=== PATIENT | female | born 1960 | race Caucasian/White ===

== ENCOUNTER 2022-03-22 17:19 | Emergency (ER) | payer OTHER, SELFPAY ==
[2022-03-22 17:25] VITALS: BP 171/79; PULSE 95; RESP 18; TEMP 36.7; O2SAT 98; BMI 28.5
--- NOTE | 2022-03-22 17:27 | ECG_ITS ---
Test Reason : GERD Blood Pressure : / mmHG Vent. Rate : 081 BPM Atrial Rate : 081 BPM P-R Int : 144 ms QRS Dur : 088 ms QT Int : 388 ms P-R-T Axes : 027 006 031 degrees QTc Int : 450 ms Normal sinus rhythm Normal ECG When compared with ECG of 10-FEB-2014 18:05, No significant change was found Referred By: Pinky Dodson Electronically Signed By:Aiden Ahmadi
--- NOTE | 2022-03-22 17:28 | ED_ITS ---
HPI - General Adult General Chief complaint: Chest Pain Stated complaint: ?gerd attack Related Data Allergies Allergy/AdvReac Type Severity Reaction Status Date / Time No Known Allergies Allergy Unverified 12/16/19 14:37 [facility] Social History Social History Advance Directives: No Advance Directives Information Provided: No Physical Exam ED Vital Signs: BMI result Body Mass Index 28.5 Course Course Course Narrative: RME - 62 yo female with history of COPD, asthma, osteoporosis, GERD who presents to the ER for evaluation of a GERD attack that started last night. She states the pain started last night after eating [place] food but nothing spicy. Pain starts in the epigastric area, radiates around the lower ribs on both sides to the back and also radiates up into the chest and neck. She has been taking mylanta and nexium with no relief. Food today made it worse. She wanted to make sure it was GERD and nothing else. HTN 170s on arrival, otherwise appears well. Will get labs, EKG and troponin. Medical Decision Making Lab Data Result Diagrams: 03/22/22 18:19 03/22/22 18:19 Labs: Lab Results 03/22/22 03/22/22 03/22/22 Range/Units 18:19 18:19 18:19 WBC 8.9 (4.8-10.8) X10*3/uL RBC 4.42 (4.20-5.50) X10*6/uL Hgb 13.3 (12.0-16.0) g/dl Hct 40.2 (37.0-47.0) % MCV 91.0 (80.0-98.0) fL MCH 30.1 (27.0-33.0) pg MCHC 33.1 (31.0-35.0) g/dl RDW 12.5 (11.0-16.0) % Plt Count 171 (160-400) X10*3/uL MPV 13.5 H (9.4-12.3) fL Immature Gran % (Auto) 0.3 (0.0-0.4) % Neut % (Auto) 66.1 (45-73) % Lymph % (Auto) 24.4 (20-40) % [place] % (Auto) 6.4 (2-11) % Eos % (Auto) 2.2 (0-4) % Baso % (Auto) 0.6 (0-2) % Lymph # (Auto) 2.2 (1.2-4.9) X10*3/uL [place] # (Auto) 0.6 (0.1-1.2) X10*3/uL Eos # (Auto) 0.2 (0.0-0.4) X10*3/uL Baso # (Auto) 0.1 (0.0-0.2) X10*3/uL Abs Immat Gran (auto) 0.03 (0.00-0.03) X10*3/uL Absolute Neuts (auto) 5.9 (2.0-8.3) x10*3/uL Absolute Nucleated RBC 0.000 (0.0-0.012) X10*3/uL Nucleated RBC % (auto) 0.0 (0.0-0.2) /100WBC Smear Tech's Comments VERIFIED Sodium 144 (135-145) mmol/L Potassium 4.2 (3.3-5.1) mmol/L Chloride 110 H (96-108) mmol/L Carbon Dioxide 27 (22-29) mmol/L Anion Gap 11 L (12-20) BUN 10 (9-16) mg/dL Creatinine 0.77 (0.5-1.4) mg/dL Estim Creat Clear Calc 68.8 Estimated GFR > 60 Random Glucose 107 (60-115) mg/dL Calcium 9.0 (8.4-10.2) mg/dL Magnesium 2.6 (1.6-2.6) mg/dL Total Bilirubin 0.5 (0.0-1.0) mg/dL Direct Bilirubin 0.2 (0.0-0.5) mg/dL AST 15 (5-31) U/L ALT 21 (0-31) U/L Alkaline Phosphatase 82 (39-117) U/L Troponin I High Sens < 3.5 (<3.5-17.0) ng/L Total Protein 6.2 L (6.5-8.0) g/dL Albumin 4.0 (3.5-5.0) g/dL Lipase 19 (8-78) U/L Discharge Plan Discharge Clinical Impression: Acute epigastric pain Patient Disposition: Elopement Interventions: ED Discharge Assessment Last Done: 03/22/22 20:37 Discharge Date/Time: 03/22/22 20:39
[2022-03-22 18:31] LABS: Lymphocytes Absolute Auto 2.2 X10*3/uL (1.2-4.9); Monocytes Percent Auto 6.4 % (2-11); SCAN SMEAR FLAG 1
[2022-03-22 18:32] LABS: Basophils Absolute Auto 0.1 X10*3/uL (0.0-0.2); Basophils Percent Auto 0.6 % (0-2); Eosinophils Absolute Auto 0.2 X10*3/uL (0.0-0.4); Eosinophils Percent Auto 2.2 % (0-4); Hematocrit 40.2 % (37.0-47.0); Hemoglobin 13.3 g/dl (12.0-16.0); Imm Gran Abs Auto 0.03 X10*3/uL (0.00-0.03); Imm Gran Pct Auto 0.3 % (0.0-0.4); Lymphocytes Percent Auto 24.4 % (20-40); MANUAL DIFF FLAG SCAN; Mean Corpuscular HGB Conc 33.1 g/dl (31.0-35.0); Mean Corpuscular Hemoglobin 30.1 pg (27.0-33.0); Mean Platelet Volume 13.5 fL (9.4-12.3); Monocytes Absolute Auto 0.6 X10*3/uL (0.1-1.2); Neutrophils Absolute Auto 5.9 x10*3/uL (2.0-8.3); Neutrophils Percent Auto 66.1 % (45-73); Platelet Count 171 X10*3/uL (160-400); Red Blood Count 4.42 X10*6/uL (4.20-5.50); Red Cell Distribution Width 12.5 % (11.0-16.0); White Blood Count 8.9 X10*3/uL (4.8-10.8)
[2022-03-22 18:41] LABS: PLT ABN DIST 1
[2022-03-22 18:53] LABS: Alanine Aminotransferase 21 U/L (0-31); Alkaline Phosphatase 82 U/L (39-117); Anion Gap 11 (12-20); Aspartate Amino Transferase 15 U/L (5-31); Bilirubin Direct 0.2 mg/dL (0.0-0.5); Bilirubin Total 0.5 mg/dL (0.0-1.0); Blood Urea Nitrogen 10 mg/dL (9-16); Carbon Dioxide 27 mmol/L (22-29); Chloride 110 mmol/L (96-108); Creatinine Clr Calc Pharmacy 68.8; Estimated Glomerular Filt Rate > 60; Glucose Random 107 mg/dL (60-115); Magnesium 2.6 mg/dL (1.6-2.6); Potassium 4.2 mmol/L (3.3-5.1); Sodium 144 mmol/L (135-145); Total Protein 6.2 g/dL (6.5-8.0)
[2022-03-22 18:56] LABS: Lipase 19 U/L (8-78)
[2022-03-22 18:58] LABS: SLIDE REVIEW VERIFIED
[2022-03-22 19:01] LABS: Troponin-I High Sensitivity < 3.5 ng/L (<3.5-17.0)
== END 2022-03-22 20:39 | disposition left against medical advice (07) ==
PROVIDERS: Physician Assistant; Emergency Provider Emergency Medicine
DX: K21.9 Gastro-esophageal reflux disease without esophagitis (principal); R10.13 Epigastric pain; R07.89 Other chest pain; Z79.899 Other long term (current) drug therapy
CPT/HCPCS: 36415; 80048; 80076; 83690; 83735; 84484; 85025; 93005; 99283; 99284

== ENCOUNTER 2023-06-11 08:50 | Outpatient (REF) | payer OTHER, SELFPAY ==
[2023-06-11 09:13] LABS: MANUAL DIFF FLAG NO
[2023-06-11 09:35] LABS: Basophils Absolute Auto 0.1 X10*3/uL (0.0-0.2); Basophils Percent Auto 0.8 % (0-2); Eosinophils Absolute Auto 0.3 X10*3/uL (0.0-0.4); Eosinophils Percent Auto 3.3 % (0-4); Hematocrit 41.9 % (37.0-47.0); Hemoglobin 13.4 g/dl (12.0-16.0); Imm Gran Abs Auto 0.03 X10*3/uL (0.00-0.03); Imm Gran Pct Auto 0.4 % (0.0-0.4); Lymphocytes Absolute Auto 1.8 X10*3/uL (1.2-4.9); Lymphocytes Percent Auto 22.5 % (20-40); Mean Corpuscular Hemoglobin 29.3 pg (27.0-33.0); Mean Corpuscular Volume 91.5 fL (80.0-98.0); Monocytes Absolute Auto 0.6 X10*3/uL (0.1-1.2); Neutrophils Absolute Auto 5.1 x10*3/uL (2.0-8.3); Platelet Count 187 X10*3/uL (160-400); Red Blood Count 4.58 X10*6/uL (4.20-5.50); Red Cell Distribution Width 13.2 % (11.0-16.0); White Blood Count 7.8 X10*3/uL (4.8-10.8)
[2023-06-11 09:59] LABS: C Reactive Protein 0.14 mg/dL (< or = 0.50)
[2023-06-11 10:15] LABS: Erythrocyte Sedimentation Rate 12 MM/HR (0-20)
== END 2023-06-11 08:51 | disposition home or self-care (01) ==
LOC: HO.LAB 08:50
PROVIDERS: PCP Internal Medicine; Visit Provider Registered Nurse
DX: G43.909 Migraine, unspecified, not intractable, without status migrainosus (principal)
CPT/HCPCS: 36415; 85025; 85652; 86140

== ENCOUNTER 2024-11-24 08:07 | Outpatient (AMB) | payer OTHER, SELFPAY ==
--- OUTSIDE RECORDS SUMMARY | 2024-11-24 08:17 | XMS_ITS | Encounter Summary ---
Author Organization [facility] Address [address] [place] [address] Care Team Providers Care Sap Technical Developer Name Role Phone Omar Peralta Primary Care Provider [phone] Encounter Details Date Type Department Care Team Description 12/05/2022 Hospital Medical Records [address] [place] [address] Steffi Marcum MD [address] [place] [address] Social History Tobacco Use Types Packs/Day Years Used Date Smoking Tobacco: Former Cigarettes 2 20 1 - 08/06/1997 Passive Smoke Exposure: Past Smokeless Tobacco: Never Alcohol Use Standard Drinks/Week Comments No 0 (1 standard drink = 0.6 oz pur e alcohol) Alcohol Habits Answer Date Recorded How often do you have a drink containing alcohol ? Never 05/09/2020 How many drinks containing a lcohol do you have on a typical day when you are drinking? Not asked How often do you have six or more drinks on one occasion? Not asked Sex Assigned at Date Recorded Female 10/15/2022 8:50 AM E DT Job Start Date Occupation Industry Not on file Not on file Not on file COVID-19 Exposure Response Date Recorded In the last 10 days, have yo u been in contact with someone who was confirmed or suspected to have Coronavirus/COVID-19? No / Unsure 12/06/2022 7:52 AM EDT documented as of this encounter Plan of Treatment Not on file documented as of this encounter Visit Diagnoses Not on filedocumented in this encounter Care Teams Sap Technical Developer Relationship Specialty Start Date End Date Omar Peralta [address] [place] [address] PCP - General Internal Medicine 11/02/21 documented as of this encounter
--- OUTSIDE RECORDS SUMMARY | 2024-11-24 08:17 | XMS_ITS | Encounter Summary ---
Author Organization [facility] Address [address] [place] [address] Care Team Providers Care Instrument Repair Supervisor Name Role Phone Omar Peralta Primary Care Provider [phone] Encounter Details Date Type Department Care Team Description 12/03/2022 Pt. Non Urgent Medical Question Adult Medicine [address] [address] Omar Peralta [address] [place] [address] [phone] Mixed hyperlipidemia (Primary Dx); Prediabetes Social History Tobacco Use Types Packs/Day Years [...] AM EDT documented as of this encounter Miscellaneous Notes * Telephone Encounter - Ira Griggs L.P.N. - 12/03/2022 2:29 PM EDTFrom: Yolande Ayala To: Mauricio Peralta Sent: 12/03/2022 2:07 PM EDT Subject: Appt Good afternoon , I have an up coming appointment on 12/13/22 and I was wondering if there is any bloodwork that needs to be done prior to. Thank you, Irene documented in this encounter Plan of Treatment Not on file documented as of this encounter Results * (ABNORMAL) CHG LIPID PANEL (12/06/2022 8:38 AM EDT) Cholesterol 198 0 - 200 mg/dL 12/06/2022 1:31 PM EDT [facility] TRIGLYCERIDES 180(H) 0 - 150 mg/dL 12/06/2022 1:33 PM EDT [facility] HDL CHOLESTEROL 49 >40 mg/dL 1:33 PM EDT [facility] LDL CALCULATED 113(H) 0 - 100 mg/dL 12/06/2022 1:33 PM EDT [facility] TC-HDLC RATIO 4.0 0 - 4.4 mg/dL 12/06/2022 1:33 PM EDT [facility] 12/06/2022 8:38 AM EDT 12/06/2022 8:38 AM EDT Narrative [facility] - 12/06/2022 1:33 PM EDT Release to patient->Immediate Omar Peralta LAB [facility] * HEMOGLOBIN A1C (12/06/2022 8:38 AM EDT) GLYCATED HEMOGLOBIN A1C 6.0 <6.5 % 12/06/2022 7:23 PM EDT [facility] ESTIMATED AVERAGE GLUCOSE 126 mg/dL 12/06/2022 7:23 PM EDT [facility] 12/06/2022 8:38 AM EDT 12/06/2022 8:38 AM EDT Narrative [facility] - 12/06/2022 7:23 PM EDT Release to patient->Immediate Omar Peralta LAB [facility] documented in this encounter Visit Diagnoses Diagnosis Mixed hyperlipidemia- Primary Prediabetes Other abnormal glucose Right leg pain Pain in limb Right leg swelling Encounter for assessment for deep vein thrombosis (DVT) Mixed hyperlipidemia Prediabetes Other abnormal glucose documented in this encounter Care Teams Instrument Repair Supervisor Relationship Specialty Start Date End Date Omar Peralta [address] [place] [address] PCP - General Internal Medicine 11/02/21 documented as of this encounter
--- OUTSIDE RECORDS SUMMARY | 2024-11-24 08:18 | XMS_ITS | Encounter Summary ---
Author Organization [facility] Address [address] [place] [address] Care Team Providers Care Administrator Pesticide Name Role Phone Omar Peralta Primary Care Provider [phone] Encounter Details Date Type Department Care Team Description 12/14/2023 Telephone Adult Medicine [address] [address] Bessie Alcantar PA-C [address] [place] [address] Social History Tobacco Use Types Packs/Day Years [...] file Not on file Not on file documented as of this encounter Miscellaneous Notes * Telephone Encounter - Bessie Alcantar PA-C - 12/14/2023 9:51 PM EDT Please get me [facility] mammogram report. documented in this encounter Plan of Treatment Not on file documented as of this encounter Visit Diagnoses Not on filedocumented in this encounter Care Teams Administrator Pesticide Relationship Specialty Start Date End Date Omar Peralta [address] [place] [address] PCP - General Internal Medicine 11/02/21 documented as of this encounter
--- OUTSIDE RECORDS SUMMARY | 2024-11-24 08:18 | XMS_ITS | Clinical Summary ---
Author Organization [facility] Address [address] [place] [address] Care Team Providers Care Environmental Attorney Name Role Phone Omar Peralta Primary Care Provider Allergies No known active allergies Medications Medication Sig Dispensed Refills Start Date End Date Status sumatriptan (IMITREX) 100 MG tablet Take 1 Tab by mouth daily as needed. May repeat dose once after 2 hours, if needed. 0 Active [place]-3 Fatty Acids (FISH OIL) 1000 MG Cap Take 1 Cap by mouth daily. 30 Cap 0 01/18/2019 Active Magnesium 500 MG TabIndications:Chr onic obstructive pulmonary disease, unspecified COPD type (HCC) Take by mouth. 0 Active Calcium-Vitamin D-Vitamin K 650-12.5-40 MG-MCG-MCG Chew Tab Take by mouth 2 times daily. 0 Active ALBUTEROL SULFATE 108 (90 Base) MCG/ACT Aero Soln Inhale 2 Puffs into the lungs every 4 hours as needed for Wheezing for up to 30 days. 1 g 2 09/18/2022 Active Alum & Mag Hydroxide-Simeth 200-200-20 MG/5ML Suspension Take 15 mL by mouth 3 times daily as needed (epigastric dyspepsia). 1680 mL 11 11/26/2022 Active Erenumab-aooe 140 MG/ML Solution Auto-injector Inject into the skin every 30 days. 0 Active triamcinolone acetonide (Kenalog) 40 MG/ML injection Inject 1 mL into the articular space once for 1 dose. 1 mL 0 04/24/2023 Active esomeprazole (NEXIUM) 40 MG capsule Take 1 Capsule by mouth every morning (before breakfast). Take in a.m. on empty stomach, wait 30 minutes and then eat to activate medication. 90 Capsule 3 06/06/2023 Active Ajovy 225 MG/1.5ML Solution Prefilled Syringe INJECT 1.5 ML SUBCUTANEOUS MONTHLY 30 DAY(S) 0 08/27/2023 Active ondansetron (ZOFRAN) 4 MG tablet TAKE 1 TABLET BY MOUTH EVERY DAY FOR 30 DAYS 0 08/27/2023 Active ibuprofen (ADVIL,MOTRIN) 600 MG tablet Take 1 Tablet by mouth every 8 hours as needed for Pain. 60 Tablet 1 09/19/2023 Active acetaminophen (Tylenol 8 Hour) 650 MG CR tablet Take 1 Tablet by mouth every 8 hours as needed for Pain. 60 Tablet 0 09/19/2023 Active Fluticasone Furoate-Vilanterol 100-25 MCG/ACT AEROSOL POWDER,BREATH ACTIVATED INHALE 1 PUFF INTO THE LUNGS DAILY FOR 30 DAYS. 60 Each 11 10/06/2023 Active Active Problems Problem Noted Date Migraine without status migrainosus, not intractable 06/06/2023 Venous insufficiency (chronic) (peripher al) 07/30/2022 Umbilical hernia without obstruction and without gangrene 06/21/2022 Asthma-COPD overlap syndrome 09/29/2018 History of DVT (deep vein thrombosis) Atelectasis 09/29/2018 Abnormality of lung on CXR 09/29/2018 Prediabetes 04/13/2018 Overview: Nonfasting glucose 160, A1c 6.2 (04/04/2018). Prior glucoses were 110-140 Osteoporosis 02/05/2017 Former smoker 1.5ppd age 16-37, >30 pack yrs 09/28/2016 Lateral epicondylitis of right elbow Incomplete RBBB (normal EKG 09/28/16) 12/30 Overview: EKG 01/02/15 and 2013 Stress incontinence 08/06/2010 Neck pain 06/05/2009 Lower back pain 05/10/2009 Thoracic back pain 05/10/2009 GERD (gastroesophageal reflux disease) 0 08/29/2008 Abdominal pain Resolved Problems Problem Noted Date Resolved Date Need for prophylactic vaccin ation against Streptococcus pneumoniae (pneumococcus) 09/29/2018 12/09/2018 Deep venous thrombosis 12/15/2017 1 Osteopenia 12/14/2012 02/05/2017 Overview: 11/2012 lumbar T -2.1, normal hip T score Myofascial pain 06/29/2009 08/06/2010 Facet syndrome 05/10/2009 08/06/2010 Immunizations Name Administration Dates Next Due COVID-19 (Moderna) 01/26/2021,05/16/2020, 021 Covid-19 Bivalent (Pfizer) 03/08/2022 Influenza (> 6 Months) 12/12/2023,2019,01/18/2019,2016,01/22/2015,2014,01/24/2013,1 ,06/13/2011 Pneumococcal Conjugate PCV-13 09/29/2018 Shingrix (Recombinant zoster vaccine) 06/21/2020 ,03/20/2020 TD (STATE SUPPLIED FOR ADULT S AND CHILDREN) 09/08/2018 Tdap 10/23/2007 Family History Medical History Relation Name Comments Cataract Father Glaucoma Father Cataract Mother thyroid cancer Sister 4 Blindness Negative Hx CA Breast Negative Hx CA Colon Negative Hx CA Ovarian Negative Hx Macular Degeneration Negative Hx Strabismus Negative Hx Relation Name Status Comments Brother 1 Alive Brother 2 Alive Daughter Alive Father h/o TB, COPD Mother Alive CAD, PVD, HTN, Hypercholesterolemia Sister 1 Alive Thyroid Cancer Sister 2 Alive Depression Sister 3 Alive Sister 4 Alive Son 1 Alive Son 2 Alive Social History Tobacco Use Types Packs/Day Years Used Date Smoking Tobacco: Former Cigarettes 2 20 1 - 08/06/1997 Passive Smoke Exposure: Past Smokeless Tobacco: Never Tobacco Cessation:Counseling Given: Not Answered Alcohol Use Standard Drinks/Week Comments No 0 [...] file Not on file Not on file Last Filed Vital Signs Vital Sign Reading Time Taken Comments Blood Pressure 109/69 12/12/2023 9:26 AM EDT Pulse 70 12/12/2023 9:26 AM EDT Temperature 36.8 C (98.3 F) 12/12/2023 9:26 AM EDT Respiratory Rate 16 12/12/2023 9:26 AM EDT Oxygen Saturation 97% 09/05/2023 1:52 PM EDT Inhaled Oxygen Concentration - - Weight 68.9 kg (152 lb) 12/12/2023 9:26 AM EDT Height 154.9 cm (5' 1 ) 12/12/2023 9:26 AM EDT Body Mass Index 28.72 12/12/2023 9:26 AM EDT Plan of Treatment Health Maintenance Due Date Last Done Comments CERVICAL CANCER SCREENING 12/10/20202015, 06/06/2010 (External Completion), 08/30/2007 (External Completion) BASELINE HEALTH EXAM 40-64 05/09/202205/09, 09/12/2018, 09/08/2018, Additional history exists MAMMOGRAM 06/01/2023 05/31/2022, 05/02, 05/05/2020 (External Completion), Additional history exists BONE DENSITY SCREENING 07/06/2023 , 06/01/2021, 04/07/2020, Additional history exists Covid-19 Vaccine ( season) 2023 03/08/2022, 01/26/2021, 05/16/2020, Additional history exists COLON CANCER SCREENING 12/09/2023 12/08/2013 BMI CHECK/ADVISE 03/31/2024 12/12/2023, 02/2024, 09/19/2023, Additional history exists INFLUENZA (#1) 2024 12/12/2023, 03/2019 (External Completion of Vaccination per patient), 12/11/2019, Additional history exists PNEUMOCOCCAL VACCINE FOR HIGH RISK PATIENTS (#2) 2027 12/11/2019, 09/29/2018 DTAP/TDAP/TD (3 - Td or Tdap) 09/08/2028 09/08/2018, 10/23/2007 CHOLESTEROL SCREENING 09/18/2028 09/19/2023 , 06/02/2023, 12/06/2022, Additional history exists HEPATITIS C SCREENING Addressed 12/14/2015 (Excepti on) Overridden with the intention of not completing the topic SHINGLES VACCINE Completed 06/21/2020, 03/20/2020 Care Teams Environmental Attorney Relationship Specialty Start Date End Date [place] [address] PCP - General Internal Medicine 11/02/21
--- OUTSIDE RECORDS SUMMARY | 2024-11-24 08:18 | XMS_ITS | Encounter Summary ---
Author Organization [facility] Address [address] [place] [address] Care Team Providers Care Auto Salvage Worker Name Role Phone Omar Peralta Primary Care Provider [phone] Reason for Visit * Reason Onset Date Comments Faxed Order 01/31/2023 MRI Encounter Details Date Type Department Care Team Description 01/31/2023 Telephone [facility] Medical [facility] [address] [facility] [address] [place] [address] Tania Ryan PA-C [address] [facility] [address] [place] [address] Faxed Order (MRI) Social History Tobacco Use Types Packs/Day Years [...] suspected to have Coronavirus/COVID-19? No / Unsure 01/01/2023 8:38 AM EDT documented as of this encounter Miscellaneous Notes * Telephone Encounter - Gissell Mccarthy - 02/10/2023 8:16 AM EST MRI scheduled for 02/10/23. Patient is aware * Telephone Encounter - Gissell Mccarthy - 01/31/2023 12:50 PM EDT Faxed over order for MRI. Waiting for appointment date and time documented in this encounter Plan of Treatment Not on file documented as of this encounter Visit Diagnoses Not on filedocumented in this encounter Care Teams Auto Salvage Worker Relationship Specialty Start Date End Date Omar Peralta [address] [place] [id number] PCP - General Internal Medicine 11/02/21 documented as of this encounter
--- OUTSIDE RECORDS SUMMARY | 2024-11-24 08:18 | XMS_ITS | Encounter Summary ---
Author Organization [facility] Address [address] [place] [address] Care Team Providers Care Actuarial Technician Name Role Phone Omar Peralta Primary Care Provider Encounter Details Date Type Department Care Team Description 11/27/2022 Pt. Non Urgent Medic al Question Gastroenterology - [address] [place] [phone] Praful Bowling PA-C Social History Tobacco Use Types Packs/Day Years [...] suspected to have Coronavirus/COVID-19? No / Unsure 11/26/2022 7:46 AM EDT documented as of this encounter Plan of Treatment Not on file documented as of this encounter Visit Diagnoses Not on filedocumented in this encounter Care Teams Actuarial Technician Relationship Specialty Start Date End Date Omar Peralta [address] [place] [id number] PCP - General Internal Medicine 11/02/21 documented as of this encounter
--- OUTSIDE RECORDS SUMMARY | 2024-11-24 08:18 | XMS_ITS | Encounter Summary ---
Author Organization [facility] Address [address] [place] [address] Care Team Providers Care Domestic Violence Advocate Name Role Phone Omar Peralta Primary Care Provider [phone] Encounter Details Date Type Department Care Team Description 12/10/2022 Pt. Non Urgent Medical Question Adult Medicine [address] [address] Omar Peralta [address] [place] [address] [phone] Social History Tobacco Use Types Packs/Day Years [...] encounter Miscellaneous Notes * Telephone Encounter - Zuly Hines R.N. - 12/10/2022 9:51 AM EDTFrom: Yolande Ayala To: Mauricio Peralta Sent: 12/10/2022 9:48 AM EDT Subject: Upcoming appointment Good morning, I have an appointment on Friday12/13/22 with you . We just saw each other on 12/06/22. I had my bloodwork done on that day and you commented on them through my portal. Do I need to keep the appointment on 12/13 ? Thank you , Irene documented in this encounter Plan of Treatment Not on file documented as of this encounter Visit Diagnoses Not on filedocumented in this encounter Care Teams Domestic Violence Advocate Relationship Specialty Start Date End Date Omar Peralta [address] [place] [address] PCP - General Internal Medicine 11/02/21 documented as of this encounter
--- OUTSIDE RECORDS SUMMARY | 2024-11-24 08:18 | XMS_ITS | Encounter Summary ---
Author Organization [facility] Address [address] [place] [address] Care Team Providers Care Distributor Advertising Material Name Role Phone Omar Peralta Primary Care Provider [phone] Encounter Details Date Type Department Care Team Description 12/31/2022 Orders Only Orthopedics-[address] [address] Tremaine Giang PA-C Lateral epicondylitis of right elbow Social History Tobacco Use Types Packs/Day Years [...] on file documented as of this encounter Procedures Procedure Name Priority Date/Time Associated Diagnosis Comments EMG INTERNAL/EXTERNAL Routine 12/30/2022 Lateral epicondylitis of right elbow documented in this encounter Results * EMG INTERNAL/EXTERNAL (12/30/2022) 12/30/2022 Tremaine Giang PA-C PHYSIATRY documented in this encounter Visit Diagnoses Diagnosis Lateral epicondylitis of right elbow Lateral epicondylitis of elbow documented in this encounter Care Teams Distributor Advertising Material Relationship Specialty Start Date End Date Omar Peralta [address] [place] [id number] PCP - General Internal Medicine 11/02/21 documented as of this encounter
--- OUTSIDE RECORDS SUMMARY | 2024-11-24 08:18 | XMS_ITS | Patient Health Record ---
Author Organization [facility] Address [address] [place] [phone] Care Team Providers Care Legal Compliance Officer Name Role Phone Lenny Campbell Jr Reason For Referral No Information Plan Of Treatment No Information
--- OUTSIDE RECORDS SUMMARY | 2024-11-24 08:18 | XMS_ITS | Encounter Summary ---
Author Organization [facility] Address [address] [place] [address] Care Team Providers Care Pressure Controller Name Role Phone Omar Peralta Primary Care Provider [phone] Encounter Details Date Type Department Care Team Description 01/04/2023 Orders Only Adult Medicine [address] [address] Alan Umanzor, PABestC [address] [place] [id number] Pain in both lower legs; Venous insufficiency Social History Tobacco Use Types Packs/Day Years [...] Procedure Name Priority Date/Time Associated Diagnosis Comments NM DUP-SCAN XTR VEINS COMPLETE BILATERAL STUDY Routine 07/25/2022 Pain in both lower legs Venous insufficiency documented in this encounter Results * NM DUP-SCAN XTR VEINS COMPLETE BILATERAL STUDY (07/25/2022) 07/25/2022 Alan Umanzor PA-C ULTRASOUND PVCA documented in this encounter Visit Diagnoses Diagnosis Pain in both lower legs Venous insufficiency Unspecified venous (peripheral) insufficiency documented in this encounter Care Teams Pressure Controller Relationship Specialty Start Date End Date Omar Peralta [address] [place] [id number] PCP - General Internal Medicine 11/02/21 documented as of this encounter
--- OUTSIDE RECORDS SUMMARY | 2024-11-24 08:18 | XMS_ITS | Encounter Summary ---
Author Organization [facility] Address [address] [place] [address] Care Team Providers Care Service Worker Helper Name Role Phone Omar Peralta Primary Care Provider Encounter Details Date Type Department Care Team Description 11/05/2023 Orders Only Radiology - [address] [address] Radiology, Authorizing Social History Tobacco Use Types Packs/Day Years [...] on file documented as of this encounter Plan of Treatment Not on file documented as of this encounter Visit Diagnoses Not on filedocumented in this encounter Care Teams Service Worker Helper Relationship Specialty Start Date End Date Omar Peralta [address] [place] [address] PCP - General Internal Medicine 11/02/21 documented as of this encounter
--- OUTSIDE RECORDS SUMMARY | 2024-11-24 08:19 | XMS_ITS | Encounter Summary ---
Author Organization [facility] Address [address] [place] [address] Care Team Providers Care Mechanical Engineering Intern Name Role Phone Omar Peralta Primary Care Provider [phone] Reason for Referral * EXTERNAL (Routine) - Authorized/Booked Specialty Diagnoses / Procedures Referred By Contac t Referred To Contact Neurology Procedures REFERRAL TO NEUROLOGY Omar Peralta [address] [place] [address] Florencio Darling MD Referral ID Status Reason Start Date Expiration Date V isits Requested Visits Authorized [id number] Authorized/B ooked 01/25/2022 05/25/2022 1 1 Encounter Details Date Type Department Care Team Description 01/25/2022 Telephone Adult Medicine [address] [address] Omar Peralta [address] [place] [address] [phone] Social History Tobacco Use Types Packs/Day Years Used Date Smoking Tobacco: Former Cigarettes 2 20 1 - 08/06/1997 Smokeless Tobacco: Never Alcohol Use Standard Drinks/Week [...] Recorded In the last 10 days, have michael u been in contact with someone who was confirmed or suspected to have Coronavirus/COVID-19? No / Unsure 01/25/2022 8:52 AM EDT documented as of this encounter Plan of Treatment Not on file documented as of this encounter Visit Diagnoses Not on filedocumented in this encounter Care Teams Mechanical Engineering Intern Relationship Specialty Start Date End Date Omar Peralta [address] [place] [phone] PCP - General Internal Medicine 11/02/21 documented as of this encounter
--- OUTSIDE RECORDS SUMMARY | 2024-11-24 08:19 | XMS_ITS | Encounter Summary ---
Author Organization [facility] Address [address] [place] [address] Care Team Providers Care Handkerchief Presser Name Role Phone Omar Peralta Primary Care Provider [phone] Encounter Details Date Type Department Care Team Description 11/23/2021 SCAN [facility] [address] [phone] Colin Maria DPM [address] [address] Social History Tobacco Use Types Packs/Day Years [...] suspected to have Coronavirus/COVID-19? No / Unsure 11/19/2021 8:24 AM EDT documented as of this encounter Plan of Treatment Not on file documented as of this encounter Visit Diagnoses Not on filedocumented in this encounter Care Teams Handkerchief Presser Relationship Specialty Start Date End Date Omar Peralta [address] [place] [address] PCP - General Internal Medicine 11/02/21 documented as of this encounter
--- OUTSIDE RECORDS SUMMARY | 2024-11-24 08:19 | XMS_ITS | Encounter Summary ---
Author Organization [facility] Address [address] [place] [address] Care Team Providers Care Manager Convention Name Role Phone Estela Barahona MD Primary Care Provider Unava ilable Rene Llamas DO Primary Care Provider Jen vailaEstela Burrell MD Primary Care Provider Unava ilable Rosemary Pcp Primary Care Provider UnavailEstela Gruber MD Primary Care Provider Unava ilable Omar Peralta Primary Care Provider [phone] Estela Barahona MD Primary Care Provider Unava ilable Omar Peralta Primary Care Provider [phone] Encounter Details Date Type Department Care Team Description 06/12/2017 Supervisor Telephone Clerks Report Medical Records [address] [place] [address] Alexandrea Burns MD Social History Tobacco Use Types Packs/Day Years Used Date Smoking Tobacco: Former Cigarettes 2 20 1 - 08/06/1997 Smokeless Tobacco: Former Alcohol Use Standard Drinks/Week Comments No 0 [...] on filedocumented in this encounter Care Teams Manager Convention Relationship Specialty Start Date End Date Estela Barahona MD PCP - General 09/17/10 08/20/20 Rene Llamas DO PCP - General Internal Medicine 08/21/20 1 Estela Barahona MD PCP - General Internal Medicine 02/06/21 02/07/21 [facility] PCP - General Internal Medicine 02/08/21 06/07/21 Estela Barahona MD PCP - General Internal Medicine 06/08/21 08/08/21 Omar Peralta [address] [place] [address] PCP - General Internal Medicine 08/09/21 08/21/21 Estela Barahona MD [address] [place] [address] PCP - General Warp Drawer 08/22/21 11/01/21 Omar Peralta [address] [place] [address] PCP - General Internal Medicine 11/02/21 documented as of this encounter
--- OUTSIDE RECORDS SUMMARY | 2024-11-24 08:19 | XMS_ITS | Encounter Summary ---
Author Organization [facility] Address [address] [place] [address] Care Team Providers Care Mortar Mixer Operator Name Role Phone Omar Peralta Primary Care Provider [phone] Reason for Visit * Reason Comments E-prescribe Rx Request Encounter Details Date Type Department Care Team Description 2022 Refill Gastroenterology - [address] [phone] Praful Bowling PA-C E-prescribe Rx Request Social History Tobacco Use Types Packs/Day Years [...] suspected to have Coronavirus/COVID-19? No / Unsure 12/17/2021 7:53 AM EDT documented as of this encounter Miscellaneous Notes * Telephone Encounter - Ju Cordova M.A. - 2022 9:53 AM EDT Last office visit : 11/02/2021 Next office visit not scheduled documented in this encounter Plan of Treatment Not on file documented as of this encounter Visit Diagnoses Not on filedocumented in this encounter Care Teams Mortar Mixer Operator Relationship Specialty Start Date End Date Omar Peralta [address] [place] [address] PCP - General Internal Medicine 11/02/21 documented as of this encounter
--- OUTSIDE RECORDS SUMMARY | 2024-11-24 08:19 | XMS_ITS | Encounter Summary ---
Author Organization [facility] Address [address] [place] [address] Care Team Providers Care Scrap Carrier Name Role Phone Estela Barahona MD Primary Care Provider Unava ilable Rene Llamas DO Primary Care Provider Jen vaEstela Brown MD Primary Care Provider Unava ilable Rosemary Pcp Primary Care Provider UnavailEstela Gruber MD Primary Care Provider Unava ilable Omar Peralta Primary Care Provider [phone] Estela Barahona MD Primary Care Provider Unava ilable Omar Peralta Primary Care Provider Encounter Details Date Type Department Care Team Description 06/27/2017 Supervisory Civil Engineer Report Medical Records [address] [place] [address] Karen Elizabeth Social History Tobacco Use Types Packs/Day Years [...] on filedocumented in this encounter Care Teams Scrap Carrier Relationship Specialty Start Date End Date Estela Barahona MD PCP - General 09/17/10 08/20/20 Rene Llamas DO PCP - General Internal Medicine 08/21/20 1 Estela Barahona MD PCP - General Internal Medicine 02/06/21 02/07/21 [facility] PCP - General Internal Medicine 02/08/21 06/07/21 Estela Barahona MD PCP - General Internal Medicine 06/08/21 08/08/21 Omar Peralta [address] [place] [address] PCP - General Internal Medicine 08/09/21 08/21/21 Estela Barahona MD [address] [place] [address] PCP - General Sandstone Splitter 08/22/21 11/01/21 Omar Peralta [address] [place] [address] PCP - General Internal Medicine 11/02/21 documented as of this encounter
--- OUTSIDE RECORDS SUMMARY | 2024-11-24 08:19 | XMS_ITS | Encounter Summary ---
Author Organization [facility] Address [address] [place] [address] Care Team Providers Care Semi Truck Driver Name Role Phone Estela Barahona MD Primary Care Provider Unava ilable Rene Llamas DO Primary Care Provider Jen vailaEstela Burrell MD Primary Care Provider Unava ilable Rosemary Pcp Primary Care Provider UnavailEstela Gruber MD Primary Care Provider Unava ilable Omar Peralta Primary Care Provider [phone] Estela Barahona MD Primary Care Provider Unava ilable Omar Peralta Primary Care Provider [phone] Encounter Details Date Type Department Care Team Description 06/03/2017 Rocket Assembly Operator Report Medical Records [address] [place] [address] Griffin Hernandez MD Social History Tobacco Use Types Packs/Day [...] on filedocumented in this encounter Care Teams Semi Truck Driver Relationship Specialty Start Date End Date Estela Barahona MD PCP - General 09/17/10 08/20/20 Rene Llamas DO PCP - General Internal Medicine 08/21/20 1 Estela Barahona MD PCP - General Internal Medicine 02/06/21 02/07/21 [facility] PCP - General Internal Medicine 02/08/21 06/07/21 Estela Barahona MD PCP - General Internal Medicine 06/08/21 08/08/21 Omar Peralta [address] [place] [address] PCP - General Internal Medicine 08/09/21 08/21/21 Estela Barahona MD [address] [place] [address] PCP - General Plywood Patcher 08/22/21 11/01/21 Omar Peralta [address] [place] [address] PCP - General Internal Medicine 11/02/21 documented as of this encounter
--- OUTSIDE RECORDS SUMMARY | 2024-11-24 08:19 | XMS_ITS | Encounter Summary ---
Author Organization [facility] Address [address] [place] [address] Care Team Providers Care Microfilm Operator Name Role Phone Estela Barahona MD Primary Care Provider Unava ilable Rene Llamas DO Primary Care Provider Jen vailaEstela Burrell MD Primary Care Provider Unava ilable Rosemary Pcp Primary Care Provider UnavailEstela Gruber MD Primary Care Provider Unava ilable Omar Peralta Primary Care Provider [phone] Estela Barahona MD Primary Care Provider Unava ilable Omar Peralta Primary Care Provider [phone] Encounter Details Date Type Department Care Team Description 09/29/2017 Employee Relations Representative Report Medical Records [address] [place] [address] Shoaib Layton MD Social History Tobacco Use Types Packs/Day [...] on filedocumented in this encounter Care Teams Microfilm Operator Relationship Specialty Start Date End Date Estela Barahona MD PCP - General 09/17/10 08/20/20 Rene Llamas DO PCP - General Internal Medicine 08/21/20 1 Estela Barahona MD PCP - General Internal Medicine 02/06/21 02/07/21 [facility] PCP - General Internal Medicine 02/08/21 06/07/21 Estela Barahona MD PCP - General Internal Medicine 06/08/21 08/08/21 Omar Peralta [address] [place] [address] PCP - General Internal Medicine 08/09/21 08/21/21 Estela Barahona MD [address] [place] [address] PCP - General Regional Forester 08/22/21 11/01/21 Omar Peralta [address] [place] [address] PCP - General Internal Medicine 11/02/21 documented as of this encounter
--- OUTSIDE RECORDS SUMMARY | 2024-11-24 08:20 | XMS_ITS | Encounter Summary ---
Author Organization [facility] Address [address] [place] [address] Care Team Providers Care Shake Cutter Name Role Phone Estela Barahona MD Primary Care Provider Unava ilable Rene Llamas DO Primary Care Provider Jen vailaEstela Burrell MD Primary Care Provider Unava ilable Rosemary Pcp Primary Care Provider UnavailEstela Gruber MD Primary Care Provider Unava ilable Omar Peralta Primary Care Provider [phone] Estela Barahona MD Primary Care Provider Unava ilable Omar Peralta Primary Care Provider [phone] Encounter Details Date Type Department Care Team Description 05/12/2018 Account Strategist Report Medical Records [address] [place] [address] Rehab., [place] Social History Tobacco Use Types Packs/Day Years [...] on filedocumented in this encounter Care Teams Shake Cutter Relationship Specialty Start Date End Date Estela Barahona MD PCP - General 09/17/10 08/20/20 Rene lLamas DO PCP - General Internal Medicine 08/21/20 1 Estela Barahona MD PCP - General Internal Medicine 02/06/21 02/07/21 [facility] PCP - General Internal Medicine 02/08/21 06/07/21 Estela Barahona MD PCP - General Internal Medicine 06/08/21 08/08/21 Omar Peralta [address] [place] [address] PCP - General Internal Medicine 08/09/21 08/21/21 Estela Barahona MD [address] [place] [address] PCP - General City Councilman 08/22/21 11/01/21 Omar Peralta [address] [place] [address] PCP - General Internal Medicine 11/02/21 documented as of this encounter
--- OUTSIDE RECORDS SUMMARY | 2024-11-24 08:20 | XMS_ITS | Encounter Summary ---
Author Organization [facility] Address [address] [place] [address] Care Team Providers Care Tax Evaluator Name Role Phone Omar Peralta Primary Care Provider [phone] Encounter Details Date Type Department Care Team Description 07/25/2022 Orders Only Gastroenterology - [address] [place] [phone] Praful Bowling PA-C Gastroesophageal reflux disease, unspecified whether esophagitis present; Globus sensation; Nausea; Change in bowel habits; Straining with stools Social History Tobacco Use Types Packs/Day Years [...] suspected to have Coronavirus/COVID-19? No / Unsure 07/05/2022 10:45 AM EDT documented as of this encounter Plan of Treatment Not on file documented as of this encounter Procedures Procedure Name Priority Date/Time Associated Diagnosis Comments CHG RADIOLOGIC EXAM UPR GI TRC DOUBLE CONTRAST STUDY Routine 07/25/2022 Gastroesophageal reflux disease, unspecified whether esophagitis present Globus sensation Nausea Change in bowel habits Straining with stools documented in this encounter Results * CHG RADIOLOGIC EXAM UPR GI TRC DOUBLE CONTRAST STUDY (07/25/2022) Praful Bowling PA-C OUTSIDE RADIOLOGY documented in this encounter Visit Diagnoses Diagnosis Gastroesophageal reflux disease, unspecified whether esophagitis present Globus sensation Gastrointestinal malfunction arising from mental factors Nausea Nausea alone Change in bowel habits Other symptoms involving digestive system Straining with stools Other symptoms involving digestive system documented in this encounter Care Teams Tax Evaluator Relationship Specialty Start Date End Date Omar Peralta [address] [place] [address] PCP - General Internal Medicine 11/02/21 documented as of this encounter
--- OUTSIDE RECORDS SUMMARY | 2024-11-24 08:20 | XMS_ITS | Encounter Summary ---
Author Organization [facility] Address [address] [place] [address] Care Team Providers Care Commercial Announcer Name Role Phone Estela Barahona MD Primary Care Provider Unava ilable Rene Llamas DO Primary Care Provider Jen vailaEstela Burrell MD Primary Care Provider Unava ilable Rosemary Pcp Primary Care Provider UnavailEstela Gruber MD Primary Care Provider Unava ilable Omar Peralta Primary Care Provider [phone] Estela Barahona MD Primary Care Provider Unava ilable Omar Peralta Primary Care Provider [phone] Encounter Details Date Type Department Care Team Description 01/20/2012 Manager Of Housekeeping Report Medical Records [address] [place] [id number] Semaj Burns MD Social History Tobacco Use Types Packs/Day Years Used Date Smoking Tobacco: Former Cigarettes 2 20 Q uit: 08/06/1997 Smokeless Tobacco: Never Alcohol Use Standard [...] on filedocumented in this encounter Care Teams Commercial Announcer Relationship Specialty Start Date End Date Estela Barahona MD PCP - General 09/17/10 08/20/20 Reen Llamas DO PCP - General Internal Medicine 08/21/20 1 Estela Barahona MD PCP - General Internal Medicine 02/06/21 02/07/21 [facility] PCP - General Internal Medicine 02/08/21 06/07/21 Estela Barahona MD PCP - General Internal Medicine 06/08/21 08/08/21 Omar Peralta [address] [place] [address] PCP - General Internal Medicine 08/09/21 08/21/21 Estela Barahona MD [address] [place] [address] PCP - General Junior Programmer 08/22/21 11/01/21 Omar Peralta [address] [place] [address] PCP - General Internal Medicine 11/02/21 documented as of this encounter
--- OUTSIDE RECORDS SUMMARY | 2024-11-24 08:20 | XMS_ITS | Encounter Summary ---
Author Organization [facility] Address [address] [place] [address] Care Team Providers Care Data Processing Mechanic Name Role Phone Omar Peralta Primary Care Provider [phone] Encounter Details Date Type Department Care Team Description 03/25/2022 Pt. Non Urgent Medic al Question Gastroenterology - [address] [place] [phone] Praful Bowling PA-C Social History Tobacco Use [...] suspected to have Coronavirus/COVID-19? No / Unsure 03/22/2022 10:25 AM EST documented as of this encounter Plan of Treatment Not on file documented as of this encounter Visit Diagnoses Not on filedocumented in this encounter Care Teams Data Processing Mechanic Relationship Specialty Start Date End Date Omar Peralta [address] [place] [address] PCP - General Internal Medicine 11/02/21 documented as of this encounter
--- OUTSIDE RECORDS SUMMARY | 2024-11-24 08:20 | XMS_ITS | Encounter Summary ---
Author Organization [facility] Address [address] [place] [address] Care Team Providers Care Muffler Tender Name Role Phone Omar Peralta Primary Care Provider [phone] Encounter Details Date Type Department Care Team Description 02/06/2022 Pt. Non Urgent Medical Question [facility] [address] [phone] Colin Maria DPM [address] [address] Social History Tobacco Use Types Packs/Day Years [...] suspected to have Coronavirus/COVID-19? No / Unsure 01/31/2022 8:07 AM EDT documented as of this encounter Miscellaneous Notes * Telephone Encounter - Marilee Garcia - 02/06/2022 3:09 PM ESTFrom: Yolande Ayala To: Colin Maria DPM Sent: 02/06/2022 6:03 AM EST Subject: Prescription Good morning DR Maria , I still haven???t heard anything regarding the compound cream you prescribedat my last visit. Could you please check on this for me ? Thank you , Irene documented in this encounter Plan of Treatment Not on file documented as of this encounter Visit Diagnoses Not on filedocumented in this encounter Care Teams Muffler Tender Relationship Specialty Start Date End Date Omar Peralta [address] [place] [address] PCP - General Internal Medicine 11/02/21 documented as of this encounter
--- OUTSIDE RECORDS SUMMARY | 2024-11-24 08:20 | XMS_ITS | Encounter Summary ---
Author Organization [facility] Address [address] [place] [address] Care Team Providers Care Lab Instructor Name Role Phone Omar Peralta Primary Care Provider [phone] Encounter Details Date Type Department Care Team Description 05/30/2022 Telephone Gastroenterology - [address] [place] [phone] Praful Bowling PA-C Social History Tobacco Use [...] was confirmed or suspected to have Coronavirus/COVID-19? Unable to assess 05/29/2022 7:47 AM EST documented as of this encounter Miscellaneous Notes * Telephone Encounter - Nadya Serrano - 05/31/2022 9:58 AM EST Per prior [facility] dept, Order faxed to [facility] dept. They will contact pt to schedule appt. Notification letter sent * Telephone Encounter - Praful Bowling PA-C - 05/30/2022 12:03 PM EST FYI I have ordered an upper GI versus a barium swallow for this patient. I am not sure if they willcontact her directly or if we have to make that appointment but appreciate any help. documented in this encounter Plan of Treatment Not on file documented as of this encounter Visit Diagnoses Not on filedocumented in this encounter Care Teams Lab Instructor Relationship Specialty Start Date End Date Omar Peralta [address] [place] [address] PCP - General Internal Medicine 11/02/21 documented as of this encounter
--- OUTSIDE RECORDS SUMMARY | 2024-11-24 08:20 | XMS_ITS | Encounter Summary ---
Author Organization [facility] Address [address] [place] [address] Care Team Providers Care Sound Equipment Mechanic Name Role Phone Estela Barahona MD Primary Care Provider Omar Recinos Primary Care Provider [phone] Encounter Details Date Type Department Care Team Description 09/04/2021 Video Production Engineer Report Medical Records [address] [place] [address] Alexandrea Burns MD Social History Tobacco Use [...] suspected to have Coronavirus/COVID-19? No / Unsure 08/13/2021 10:31 AM EDT documented as of this encounter Plan of Treatment Not on file documented as of this encounter Visit Diagnoses Not on filedocumented in this encounter Care Teams Sound Equipment Mechanic Relationship Specialty Start Date End Date Estela Barahona MD PCP - General Brick Machine Operator 08/22/21 11/01/21 Omar Peralta [address] [place] [address] PCP - General Internal Medicine 11/02/21 documented as of this encounter
--- OUTSIDE RECORDS SUMMARY | 2024-11-24 08:20 | XMS_ITS | Encounter Summary ---
Author Organization [facility] Address [address] [place] [address] Care Team Providers Care Vehicle Inspector Name Role Phone Estela Barahona MD Primary Care Provider Unava ilable Rene Llamas DO Primary Care Provider Jen vailable Estela Barahona MD Primary Care Provider Unava ilable Rosemary Pcp Primary Care Provider UnavailEstela Gruber MD Primary Care Provider Unava ilable Omar Peralta Primary Care Provider [phone] Estela Barahona MD Primary Care Provider Unava ilable Omar Peralta Primary Care Provider [phone] Encounter Details Date Type Department Care Team Description 06/16/2018 Pt. Non Urgent Medical Question Adult Medicine [address] [address] Estela Barahona MD Osteoporosis without current pathological fracture, unspecified osteoporosis type (Primary Dx) Social History Tobacco Use Types Packs/Day Years [...] on file documented as of this encounter Progress Notes * Shana Escobar M.A. - 06/16/2018 4:03 PM EDTFrom: Yolande Ayala To: Estela Barahona MD Sent: 06/16/2018 2:56 PM EDT Subject: celiac disease Good afternoon DR Barahona, I started seeing DR Kian Allison who is a chiropractor for back, neck and leg pain. When we wree going over my medical history he asked me if I was ever tested for celiac. I told him no, and asked why. He told me I had many symptoms associated with celiac. These symptoms include : Osteoporosis abdominal issues Migraines Gastrointestinal symptoms Joint pain muscle weakness (legs) overweight asthma fatty liver I was going to try a gluten free diet, but I thought I would run this past you first . I really think something is going on. I haven't been the same since I had my foot surgery back in September of 2017. I would like to get tested just to rule it out. Thank You, Irene documented in this encounter Plan of Treatment Not on file documented as of this encounter Results * IGA (06/23/2018 3:11 PM EDT) IMMUNOGLOBULIN IGA 131 61 - 348 mg/dL 06/23/2018 7:39 PM EDT [facility] 06/23/2018 3:11 PM EDT 06/23/2018 3:13 PM EDT Estela Barahona MD LAB [facility] * GLIADIN ANTIBODIES (IGG,IGA) (06/23/2018 3:11 PM EDT) GLIADIN IGG QUANT 2 <20 UNITS 06/24/2018 12:44 PM EDT [facility] GLIADIN IGG NEGATIVE NEGATIVE 06/24/2018 12:44 PM EDT [facility] GLIADIN IGA QUANT 3 <20 UNITS 06/24/2018 12:44 PM EDT [facility] GLIADIN IGA NEGATIVE NEGATIVE 06/24/2018 12:44 PM EDT [facility] 06/23/2018 3:11 PM EDT 06/23/2018 3:13 PM EDT Estela Barahona MD LAB Performing Organization Address City/[facility]/ZIP Co de Phone Number [facility] * ENDOMYSIAL IGA AB (06/23/2018 3:11 PM EDT) ENDOMYSIAL AB NEGATIVE NEGATIVE 06/24/2018 2:09 PM EDT [facility] [place] PATH REVIEW DR. HARRIS 2:09 PM EDT [facility] 06/23/2018 3:11 PM EDT 06/23/2018 3:13 PM EDT Estela Barahona MD LAB Performing Organization Address [facility] Co de Phone Number [facility] * TRANSGLUTAMINASE AB IGA (06/23/2018 3:11 PM EDT) TTG IGA NEGATIVE NEGATIVE 06/24/2018 12:26 PM EDT [facility] TTG IGA QUANT 4 <20 UNITS 06/24/2018 12:26 PM EDT [facility] 06/23/2018 3:11 PM EDT 06/23/2018 3:13 PM EDT Estela Barahona MD LAB Performing Organization Address City/[facility]/ZIP Co de Phone Number [facility] documented in this encounter Visit Diagnoses Diagnosis Osteoporosis without current pathological fracture, unspecified osteoporosis type- Primary documented in this encounter Care Teams Vehicle Inspector Relationship Specialty Start Date End Date Estela Barahona MD PCP - General 09/17/10 08/20/20 Rene Llamas DO PCP - General Internal Medicine 08/21/20 1 Estela Barahona MD PCP - General Internal Medicine 02/06/21 02/07/21 On License Of [facility] Pcp PCP - General Internal Medicine 02/08/21 06/07/21 Estela Barahona MD PCP - General Internal Medicine 06/08/21 08/08/21 Omar Peralta [address] [place] [address] PCP - General Internal Medicine 08/09/21 08/21/21 Estela Barahona MD [address] [place] [address] PCP - General Rod Mill Operator 08/22/21 11/01/21 Omar Peralta [address] [place] [address] PCP - General Internal Medicine 11/02/21 documented as of this encounter
--- OUTSIDE RECORDS SUMMARY | 2024-11-24 08:20 | XMS_ITS | Encounter Summary ---
Author Organization [facility] Address [address] [place] [address] Care Team Providers Care Skip Pitman Name Role Phone Omar Peralta Primary Care Provider [phone] Encounter Details Date Type Department Care Team Description 03/05/2022 Pt. Non Urgent Medical Question [facility] [address] [id number] Colin Maria DPM [address] [address] Social History Tobacco Use Types Packs/Day Years [...] suspected to have Coronavirus/COVID-19? No / Unsure 03/04/2022 8:09 AM EST documented as of this encounter Miscellaneous Notes * Telephone Encounter - Ju Cordova M.A. - 03/05/2022 1:27 PM ESTFrom: Yolande Ayala To: Colin Maria DPM Sent: 03/05/2022 1:13 PM EST Subject: Expiration date on foot cream Good afternoon DR Maria , I contacted the pharmacy regarding the expiration date on the foot cream and was told there are no preservatives in their medications , therefore they have to put a short expiration date. There are refills so if I need more I will let them know. Irene documented in this encounter Plan of Treatment Not on file documented as of this encounter Visit Diagnoses Not on filedocumented in this encounter Care Teams Skip Pitman Relationship Specialty Start Date End Date Omar Peralta [address] [place] [id number] PCP - General Internal Medicine 11/02/21 documented as of this encounter
--- OUTSIDE RECORDS SUMMARY | 2024-11-24 08:21 | XMS_ITS | Encounter Summary ---
Author Organization [facility] Address [address] [place] [address] Care Team Providers Care Manager Government Name Role Phone Estela Barahona MD Primary Care Provider Unava ilable Rene Llamas DO Primary Care Provider Jen vailaEstela Burrell MD Primary Care Provider Unava ilable Rosemary Pcp Primary Care Provider UnavailEstela Gruber MD Primary Care Provider Unava ilable Omar Peralta Primary Care Provider [phone] Estela Barahona MD Primary Care Provider Unava ilable Omar Peralta Primary Care Provider [phone] Encounter Details Date Type Department Care Team Description 08/31/2018 Pt. Non Urgent Medical Question Physiatry - [address] [address] Manjeet Hinojosa PA-C Social History Tobacco Use Types Packs/Day [...] as of this encounter Progress Notes * Yarely Pelaez M.A. - 08/31/2018 8:22 AM EDTFrom: Yolande Ayala To: Manjeet Hinojosa PA-C Sent: 08/31/2018 8:02 AM EDT Subject: MRI Hi Ciaran , I still haven't heard anything on the MRI for my knee . Can you please check on this ? Thank you documented in this encounter Plan of Treatment Not on file documented as of this encounter Visit Diagnoses Not on filedocumented in this encounter Care Teams Manager Government Relationship Specialty Start Date End Date Estela Barahona MD PCP - General 09/17/10 08/20/20 Rene Llamas DO PCP - General Internal Medicine 08/21/20 1 Estela Barahona MD PCP - General Internal Medicine 02/06/21 02/07/21 [facility] PCP - General Internal Medicine 02/08/21 06/07/21 Estela Barahona MD PCP - General Internal Medicine 06/08/21 08/08/21 Omar Peralta [address] [place] [address] PCP - General Internal Medicine 08/09/21 08/21/21 Estela Barahona MD [address] [place] [address] PCP - General Ticket Puller 08/22/21 11/01/21 Omar Peralta [address] [place] [address] PCP - General Internal Medicine 11/02/21 documented as of this encounter
--- OUTSIDE RECORDS SUMMARY | 2024-11-24 08:21 | XMS_ITS | Encounter Summary ---
Author Organization [facility] Address [address] [place] [address] Care Team Providers Care Machine Straw Hat Presser Name Role Phone Estela Barahona MD Primary Care Provider Unava ilable Rene Llamas DO Primary Care Provider Jen vailaEstela Burrell MD Primary Care Provider Unava ilable Rosemary Pcp Primary Care Provider UnavailEstela Gruber MD Primary Care Provider Unava ilable Omar Peralta Primary Care Provider [phone] Estela Barahona MD Primary Care Provider Unava ilable Omar Peralta Primary Care Provider [phone] Encounter Details Date Type Department Care Team Description 02/12/2013 Telephone [facility] [id number] Lanre Hay, KIRK Social History Tobacco Use Types Packs/Day Years [...] encounter Miscellaneous Notes * Telephone Encounter - Lanre Hay, KIRK - 02/12/2013 4:47 PM EST Please Schedule 1 year follow up with me documented in this encounter Plan of Treatment Not on file documented as of this encounter Visit Diagnoses Not on filedocumented in this encounter Care Teams Machine Straw Hat Presser Relationship Specialty Start Date End Date Estela Barahona MD PCP - General 09/17/10 08/20/20 Rene Llamas DO PCP - General Internal Medicine 08/21/20 1 Estela Barahona MD PCP - General Internal Medicine 02/06/21 02/07/21 [facility] PCP - General Internal Medicine 02/08/21 06/07/21 Estela Barahona MD PCP - General Internal Medicine 06/08/21 08/08/21 Omar Peralta [address] [place] [address] PCP - General Internal Medicine 08/09/21 08/21/21 Estela Barahona MD [address] [place] [address] PCP - General Microbiology Manager 08/22/21 11/01/21 Omar Peralta [address] [place] [address] PCP - General Internal Medicine 11/02/21 documented as of this encounter
--- OUTSIDE RECORDS SUMMARY | 2024-11-24 08:21 | XMS_ITS | Encounter Summary ---
Author Organization [facility] Address [address] [place] [address] Care Team Providers Care Senior Media Buyer Name Role Phone Estela Barahona MD Primary Care Provider Unava ilable Rene Llamas DO Primary Care Provider Jen vailaEstela Burrell MD Primary Care Provider Unava ilable Rosemary Pcp Primary Care Provider UnavailEstela Gruber MD Primary Care Provider Unava ilable Omar Peralta Primary Care Provider [phone] Estela Barahona MD Primary Care Provider Unava ilable Omar Peralta Primary Care Provider [phone] Encounter Details Date Type Department Care Team Description 07/20/2012 Mine Development Engineer Report Medical Records [address] [place] [address] Adeline Keys NP Social History Tobacco Use Types Packs/Day Years [...] on filedocumented in this encounter Care Teams Senior Media Buyer Relationship Specialty Start Date End Date Estela Barahona MD PCP - General 09/17/10 08/20/20 Rene Llamas DO PCP - General Internal Medicine 08/21/20 1 Estela Barahona MD PCP - General Internal Medicine 02/06/21 02/07/21 [facility] PCP - General Internal Medicine 02/08/21 06/07/21 Estela Barahona MD PCP - General Internal Medicine 06/08/21 08/08/21 Omar Peralta [address] [place] [address] PCP - General Internal Medicine 08/09/21 08/21/21 Estela Barahona MD [address] [place] [address] PCP - General Bill Board Poster 08/22/21 11/01/21 Omar Peralta [address] [place] [address] PCP - General Internal Medicine 11/02/21 documented as of this encounter
--- OUTSIDE RECORDS SUMMARY | 2024-11-24 08:21 | XMS_ITS | Encounter Summary ---
Author Organization [facility] Address [address] [place] [address] Care Team Providers Care Automation Tech Name Role Phone Estela Barahona MD Primary Care Provider Unava ilable Rene Llamas DO Primary Care Provider Jen vailaEstela Burrell MD Primary Care Provider Unava ilable Rosemary Pcp Primary Care Provider UnavailEstela Gruber MD Primary Care Provider Unava ilable Omar Peralta Primary Care Provider [phone] Estela Barahona MD Primary Care Provider Unava ilable Omar Peralta Primary Care Provider [phone] Encounter Details Date Type Department Care Team Description 08/28/2018 Pt. Non Urgent Medical Question Adult Medicine [address] [address] Estela Barahona MD Prediabetes (Primary Dx) Social History Tobacco Use Types [...] as of this encounter Progress Notes * Yolande Melo M.A. - 08/28/2018 10:02 AM EDTFrom: Yolande Ayala To: Estela Barahona MD Sent: 08/28/2018 10:01 AM EDT Subject: Blood work Hi DR Barahona , I have an up coming appointment with you on 09/08/18 . I know you wanted to recheckmy A1C , can you order that and any other bloodwork that is needed before the appointment ? Thank you documented in this encounter Plan of Treatment Not on file documented as of this encounter Results * HEMOGLOBIN A1C (09/05/2018 8:47 AM EDT) GLYCATED HEMOGLOBIN A1C 6.2 <6.5 % 09/06/2018 11:44 AM EDT [facility] ESTIMATED AVERAGE GLUCOSE 131 mg/dL 09/06/2018 11:44 AM EDT [facility] 09/05/2018 8:47 AM EDT 09/05/2018 8:47 AM EDT Estela Barahona MD LAB [facility] documented in this encounter Visit Diagnoses Diagnosis Prediabetes- Primary Other abnormal glucose documented in this encounter Care Teams Automation Tech Relationship Specialty Start Date End Date Estela Barahona MD PCP - General 09/17/10 08/20/20 Rene Llamas DO PCP - General Internal Medicine 08/21/20 1 Estela Barahona MD PCP - General Internal Medicine 02/06/21 02/07/21 [facility] PCP - General Internal Medicine 02/08/21 06/07/21 Estela Barahona MD PCP - General Internal Medicine 06/08/21 08/08/21 [place] [address] PCP - General Internal Medicine 08/09/21 08/21/21 Estela Barahona MD [address] [place] [address] PCP - General Limehouse Worker 08/22/21 11/01/21 Omar Peralta [address] [place] [address] PCP - General Internal Medicine 11/02/21 documented as of this encounter
--- OUTSIDE RECORDS SUMMARY | 2024-11-24 08:21 | XMS_ITS | Encounter Summary ---
Author Organization [facility] Address [address] [place] [address] Care Team Providers Care Prop And Effects Designer Name Role Phone Estela Barahona MD Primary Care Provider Unava ilable Rene Llamas DO Primary Care Provider Jen vailable Estela Barahona MD Primary Care Provider Unava ilable Rosemary Pcp Primary Care Provider UnavailEstela Gruber MD Primary Care Provider Unava ilable Omar Peralta Primary Care Provider [phone] Estela Barahona MD Primary Care Provider Unava ilable Omar Peralta Primary Care Provider [phone] Encounter Details Date Type Department Care Team Description 12/08/2012 Pt. Non Urgent Medical Question Adult Medicine [address] [address] Estela Barahona MD Screening for osteoporosis (Primary Dx); Lower back pain Social History Tobacco Use Types Packs/Day Years [...] as of this encounter Progress Notes * Janee Perez M.A. - 12/08/2012 5:33 PM EDTFrom: PAPA AYALA To: Estela Barahona MD Sent: jesús Dec 08, 2012 4:01 PM Subject: Bone Density Scan Hi Dr Barahona, I have had lower right side back pain for a number of yrs. Iv'e seen chiropractor Dr Guzman, Iv'e had a negative MRI, and now I'm having accupuncture. I'm wondering because of my age if I should have a bone density done . The pain I have isn't muscular , It's really slowing me down,so I would like to get to the bottom of it. Thank You documented in this encounter Plan of Treatment Not on file documented as of this encounter Results * DXA BONE DENSITY STUDY 1+ SITS AXIAL SKEL (12/14/2012 9:11 AM EDT) 12/14/2012 2:55 PM EDT Impressions [facility] OTHER EXTERNAL - 12/14/2012 2:55 PM EDT Impression: Osteopenia by WHO criteria. FRAX score not reported due to patient patient being premenopausal. The [facility] Department of Internal Medicine recommends using National Osteoporosis Foundation (NOF) guidelines in treatment decisions related to osteoporosis. NOF guidelines suggest considering treatment for postmenopausal women and men aged 50 or older presenting with the following: History of hip or vertebral fracture. T-score = -2.5 (DXA) at the femoral neck, total hip, or spine, after appropriate evaluation to exclude secondary causes. Low bone mass (T-score between -1.0 and -2.5 at the femoral neck or spine) AND a 10-year probability of a hip fracture = 3% OR a 10-year probability of a major osteoporosis-related fracture = 20% based on the [place]-adapted WHO algorithm Please note that all treatment decisions require clinical judgment and consideration of individual patient factors, including patient preferences, co-morbidities, previous drug use, risk factors not captured in the FRAX model (e.g., frailty, falls, vitamin D deficiency, increased bone turnover, interval significant decline in bone density) and possible under- or over-estimation of fracture risk by FRAX. Optional alternative screening schedule based on connie Maldonado al., [facility] April 18, 2011 for patients with osteopenia (based on hip BMD T-score) is as follows: * advanced osteopenia (T scores -2.00 to -2.49), BMD testing every year * moderate osteopenia (T scores -1.50 to -1.99), BMD testing every 5 years * mild osteopenia or normal BMD (T scores -1.50 and higher), BMD testing every 15 years Jose Juan MONTES DE [facility] OTHER EXTERNAL - 12/14/2012 2:55 PM EDT BONE DENSITY (DEXA) Lumbar Spine T-score is -2.1. (SD relative to 20-29 y/o adult) Z-score is -1.3. (SD relative to age matched peers) This is considered osteopenia by WHO criteria. Hip T-score is -1.0. Z-score is -0.2. This is considered normal by WHO criteria. Comparison exam(s): None. Confidence level is +/-95%. Procedure Note Wan Pollock MD - 12/14/2012 BONE DENSITY (DEXA) Lumbar Spine T-score is -2.1. (SD relative to 20-29 y/o adult) Z-score is -1.3. (SD relative to age matched peers) This is considered osteopenia by WHO criteria. Hip T-score is -1.0. Z-score is -0.2. This is considered normal by WHO criteria. Comparison exam(s): None. Confidence level is +/-95%. Impression: Osteopenia by WHO criteria. FRAX score not reported due to patient patientbeing premenopausal. The [facility] Department of Internal Medicine recommendsusing National Osteoporosis Foundation (NOF) guidelines in treatment decisions related toosteoporosis. NOF guidelines suggest considering treatment for postmenopausal women and menaged 50 or older presenting with the following: History of hip or vertebral fracture. T-score = -2.5 (DXA) at the femoral neck, total hip, or spine, afterappropriate evaluation to exclude secondary causes. Low bone mass (T-score between -1.0 and -2.5 at the femoral neck or spine)AND a 10-year probability of a hip fracture = 3% OR a 10-year probability of a majorosteoporosis-related fracture = 20% based on the [place]-adapted WHO algorithm Please note that all treatment decisions require clinical judgment andconsideration of individual patient factors, including patient preferences, co- morbidities,previous drug use, risk factors not captured in the FRAX model (e.g., frailty, falls, vitaminD deficiency, increased bone turnover, interval significant decline in bone density) andpossible under- or over-estimation of fracture risk by FRAX. Optional alternative screening schedule based on ashutosh Maldonado., NEJMJanuary 2011 for patients with osteopenia (based on hip BMD T-score) is as follows: * advanced osteopenia (T scores -2.00 to -2.49), BMD testing every year * moderate osteopenia (T scores -1.50 to -1.99), BMD testing every 5years * mild osteopenia or normal BMD (T scores -1.50 and higher), BMD testingevery 15 years Estela Barahona MD DEXA [facility] OTHER EXTERNAL documented in this encounter Visit Diagnoses Diagnosis Screening for osteoporosis- Primary Special screening for osteoporosis Lower back pain Lumbago Screening for osteoporosis Special screening for osteoporosis Lower back pain Lumbago documented in this encounter Care Teams Prop And Effects Designer Relationship Specialty Start Date End Date Estela Barahona MD PCP - General 09/17/10 08/20/20 Rene Llamas DO PCP - General Internal Medicine 08/21/20 1 Estela Barahona MD PCP - General Internal Medicine 02/06/21 02/07/21 [facility], Pcp PCP - General Internal Medicine 02/08/21 06/07/21 Estela Barahona MD PCP - General Internal Medicine 06/08/21 08/08/21 Omar Peralta [address] [place] [address] PCP - General Internal Medicine 08/09/21 08/21/21 Estela Barahona MD [address] [place] [address] PCP - General Independent Living Specialist 08/22/21 11/01/21 Omar Peralta [address] [place] [address] PCP - General Internal Medicine 11/02/21 documented as of this encounter
--- OUTSIDE RECORDS SUMMARY | 2024-11-24 08:21 | XMS_ITS | Encounter Summary ---
Author Organization [facility] Address [address] [place] [address] Care Team Providers Care Antique Repairer Name Role Phone Estela Barahona MD Primary Care Provider Unava ilable Rene Llamas DO Primary Care Provider Jen vaEstela Brown MD Primary Care Provider Unava ilable Rosemary Pcp Primary Care Provider UnavailEstela Gruber MD Primary Care Provider Unava ilable Omar Peralta Primary Care Provider [phone] Estela Barahona MD Primary Care Provider Unava ilable Omar Peralta Primary Care Provider [phone] Reason for Visit * Reason Onset Date Comments TEST RESULTS 09/04/2018 Encounter Details Date Type Department Care Team Description 09/04/2018 [facility] [address] [address] Manjeet Hinojosa PA-C Social History Tobacco Use [...] as of this encounter Progress Notes * Ju Shore - 09/04/2018 9:57 AM EDTFrom: Yolande Ayala To: Manjeet Hinojosa PA-C Sent: 09/04/2018 6:17 AM EDT Subject: MRI results Good morning , I had an MRI done on Friday of this week . I haven't heard anything about the results . Can you check on this please . Thank you documented in this encounter Plan of Treatment Not on file documented as of this encounter Visit Diagnoses Not on filedocumented in this encounter Care Teams Antique Repairer Relationship Specialty Start Date End Date Estela Barahona MD PCP - General 09/17/10 08/20/20 Rene Llamas DO PCP - General Internal Medicine 08/21/20 1 Estela Barahona MD PCP - General Internal Medicine 02/06/21 02/07/21 [facility] PCP - General Internal Medicine 02/08/21 06/07/21 Estela Barahona MD PCP - General Internal Medicine 06/08/21 08/08/21 Omar Peralta [address] [place] [address] PCP - General Internal Medicine 08/09/21 08/21/21 Estela Barahona MD [address] [place] [address] PCP - General Pharm Tech 08/22/21 11/01/21 [place] [address] PCP - General Internal Medicine 11/02/21 documented as of this encounter
--- OUTSIDE RECORDS SUMMARY | 2024-11-24 08:21 | XMS_ITS | Encounter Summary ---
Author Organization [facility] Address [address] [place] [address] Care Team Providers Care Radiation Safety Officer Name Role Phone Estela Barahona MD Primary Care Provider Unava ilable Rene Llamas DO Primary Care Provider Jen vailaEstela Burrell MD Primary Care Provider Unava ilable Rosemary Pcp Primary Care Provider UnavailEstela Gruber MD Primary Care Provider Unava ilable Omar Peralta Primary Care Provider [phone] Estela Barahona MD Primary Care Provider Unava ilable Omar Peralta Primary Care Provider [phone] Encounter Details Date Type Department Care Team Description 10/16/2018 Orders Only Medical Records [address] [place] [address] Estela Barahona MD Social History Tobacco Use Types Packs/Day [...] Procedure Name Priority Date/Time Associated Diagnosis Comments OUTSIDE ECHO Routine 10/12/2018 documented in this encounter Results * OUTSIDE ECHO (10/12/2018) Estela Barahona MD CARDIOLOGY documented in this encounter Visit Diagnoses Not on filedocumented in this encounter Care Teams Radiation Safety Officer Relationship Specialty Start Date End Date Estela Barahona MD PCP - General 09/17/10 08/20/20 Rene Llamas DO PCP - General Internal Medicine 08/21/20 1 Estela Barahona MD PCP - General Internal Medicine 02/06/21 02/07/21 [facility] PCP - General Internal Medicine 02/08/21 06/07/21 Estela Barahona MD PCP - General Internal Medicine 06/08/21 08/08/21 Omar Peralta [address] [place] [address] PCP - General Internal Medicine 08/09/21 08/21/21 Estela Barahona MD [address] [place] [address] PCP - General Paint Supervisor 08/22/21 11/01/21 Omar Peralta [address] [place] [address] PCP - General Internal Medicine 11/02/21 documented as of this encounter
--- OUTSIDE RECORDS SUMMARY | 2024-11-24 08:22 | XMS_ITS | Clinical Summary ---
Author Organization [facility] Address [address] [place] [phone] Phone Care Team Providers Care Fsr Name Role Phone Omar Peralta MD Primary Care Provider Allergies No known active allergies Medications omeprazole (PRILOSEC) 40 MG capsule 1 capsule Orally Once a day Active omega-3 fatty acids (FISH OIL CONCENTRATE) 1,000 mg Cap Take 1 capsule by mouth daily. Active Medication-Free TextIndications: Breo Take 1 puff by mouth daily. Indications: Breo Active albuterol 90 mcg/actuation inhaler Inhale 2 puffs into the lungs every 6 (six) hours as needed for wheezing. Active magnesium oxide 250 mg (150 mg elemental) Tab Take 500 mg by mouth daily. Active SUMAtriptan (IMITREX) 100 MG tablet TAKE 1 TABLET BY MOUTH NEEDED 1 TIME EVERY 4 HOURS UP TO 2/ 24 HOURS FOR 30 DAYS. 2 Active zoledronic acid (RECLAST) 5 mg/100 mL PgBk Inject 5 mg into the vein. 1 Active fexofenadine (DEE) 180 MG tabletIndication s:seasonal allergic rhinitis Take 1 tablet by mouth daily as needed (allergies). Indications: seasonal runny nose 3 Active ondansetron (ZOFRAN) 8 MG tablet Take 1 tablet by mouth 2 (two) times a day as needed. 3 Active Bacillus coagulans-inulin 1 billion-250 cell-mg Cap Take 250 mg by mouth daily. Active Medication-Free Text Take 1 capsule by mouth 2 (two) times a day. Viactive- 2 chews daily. Active AJOVY SYRINGE 225 mg/1.5 mL subcutaneous syringe INJECT 1.5 ML SUBCUTANEOUS MONTHLY 30 DAY(S) 4 Active estradioL (ESTRACE) 0.01 % (0.1 mg/gram) vaginal creamIndications :Vaginal dryness, menopausal Place 2 g vaginally 2 (two) times a week. 42.5 g 4 4 Active coenzyme Q10 100 mg capsule Take 100 mg by mouth daily. Active Active Problems Problem Noted Date Diagnosed Date Other osteoporosis without current pathological fracture 08/28/2022 Assessment & Plan (08/02/2024 9:03 AM EDT): She continues calcium and vitamin D supplements weightbearing exercises. She did receive 3 infusions of zoledronic acid. Is been 1-1/2 years after the last injection. This medication can last up to 1-1/2 years. But she did have a significant decrease in bone mineral density lumbar spine T-score decreased from -2.5 to -2.8. There was sac percentage was not indicated in the report. At this point I recommend repeating antiresorptive medications. She cannot tolerate alendronate due to reflux we can use zoledronic acid infusions again or we can use Prolia subcutaneous injections. I did discuss anabolic hormones such as Forteo, Tymlos, and Evenity but I doubt that dose will be covered. I will request lab work to be repeated prior to the follow-up visit in 1 year. Assessment & Plan (12/19/2023 9:01 AM EDT): Continue calcium, vitamin D and weightbearing exercises. The patient is due for repeat DXA scan on July 23 2024. I will see her approximately 2 weeks after that date. In the meantime I requested a CTX and comprehensive that she should do fasting 2 weeks prior to the visit. I will repeat vitamin D level as well. Assessment & Plan (12/13/2022 9:50 AM EDT): The patient has osteoporosis as indicated in the HPI she is taking calcium and vitamin D. Despite the fact that the vitamin D supplement is not alarmed her vitamin D levels in the reference range. Based on 24-hour urine calcium being in the reference range she is getting adequate calcium intake. In the past she could not tolerate alendronate. She has received 3 infusions of zoledronic acid. This medication last anywhere from 1 to 3 years. So she is definitely good for the next year. She will follow in 1 year. The question is what we going to do then. She can do a drug holiday or she can switch to another medication such as Prolia. The concern I have is that if we switch to Prolia if she has to stop this medication then she will need to follow it up with an oral bisphosphonate such as alendronate and she was not able to tolerate this medication. There are other medications such as anabolic hormones but she has not had any fractures so I do not know if this will be covered. I do not know if we need to go ahead and prescribe this medication which is a power drug. Maybe will be best for her to just have a drug holiday and monitor DXA scan and see how she does. Again zoledronic acid can last anywhere from 1 to 3 years. I did request DXA scan to be done on 06/02/2023 at [place]. She will follow in 1 year she should continue calcium vitamin D supplements. Assessment & Plan (08/28/2022 2:23 PM EDT): The patient was diagnosed with osteoporosis in 2018. Her risk factors for osteoporosis includes menopause, age, remote tobacco use, use of corticosteroids and proton pump inhibitors for prolonged period of time. She has lost close to 2 inches in height she has not had any fractures. She received Reclast administration on 2 consecutive years. She informs me that she was due for Reclast ministration in June 2022. This was being administered by her primary care physician. Her primary care physician presently states that there is no longer as being done in the office. At this point we can proceed with zoledronic acid administration but I do need to do a biochemical work-up by checking PTH, 24-hour urine calcium and I would like to check baseline N-telopeptide and procollagen levels which have to be done fasting. I asked the patient to take pictures of her calcium supplements both front and back so that we can review exactly how much calcium and vitamin D she is taking. Equinus deformity of both feet 07/06/2021 Sesamoiditis of foot 07/06/2021 Flat foot 07/06/2021 Encounters Date Type Department Care Team Description 11/12/2024 8:30 AM EDT Infusion [facility] Medical Infusion Center [address] [place] [address] Nick Valdez DO Other osteoporosis without current pathological fracture (Primary Dx) 11/11/2024 Transcribe Orders [facility] [address] [place] [address] Lisette Moeller MD Encounter for rehabilitation (Primary Dx) 10/26/2024 1:58 PM EDT - 10/26/2024 11:59 PM EDT Hospital Encounter [facility] Laboratory [address] [place] [address] Meg Bernardo CNM Discharge Disposition: Home or Self Care 10/26/2024 Orders Only [facility] [address] [place] [address] Meg Bernardo CNM Chronic fatigue (Primary Dx) 10/20/2024 7:53 AM EDT - 10/20/2024 11:59 PM EDT Hospital Encounter [facility] Laboratory [address] [place] [address] Omar Peralta MD Discharge Disposition: Home or Self Care 10/20/2024 Transcribe Orders [facility] Laboratory [address] [place] [address] Omar Peralta MD Physical exam (Primary Dx); Chronic obstructive pulmonary disease, unspecified COPD type; Age related osteoporosis, unspecified pathological fracture presence; Mixed hyperlipidemia; Pre-diabetes; Migraine without aura and without status migrainosus, not intractable 09/23/2024 Orders Only [facility] [address] [place] [address] Nick Valdez DO Other osteoporosis without current pathological fracture (Primary Dx) 09/21/2024 7:56 AM EDT - 09/21/2024 11:59 PM EDT Hospital Encounter [facility] Laboratory [address] [place] [address] Nick Valdez, DO Discharge Disposition: Home or Self Care 09/14/2024 Orders Only [facility] [address] [place] [address] Nick Valdez, DO Other osteoporosis without current pathological fracture (Primary Dx) 09/06/2024 Orders Only [facility] [address] [place] [address] Nick Valdez, DO Other osteoporosis without current pathological fracture (Primary Dx) 09/03/2024 2:00 PM EDT Infusion [facility] [address] [place] [address] Nick Valdez, DO Other osteoporosis without current pathological fracture (Primary Dx) 09/03/2024 Orders Only [facility] [address] [place] [address] Nick Valdez, DO Other osteoporosis without current pathological fracture (Primary Dx) from Last 3 Months Immunizations Immunization Administration Dates Next Due COVID-19 (Pre-01/20) Moderna Vaccine, mRNA, PF 05/16/2020,04/18/2020 Influenza Quadrivalent Prese rvative Free IM 12/31/2022,01/03/2022,12/11/2019,2019,12/11/2019 Influenza Quadrivalent w/ Preservative IM 12/22/2020 Family History Medical History Relation Comments Skin cancer Father Tuberculosis Father Coronary artery disease Mother Hyperlipidemia Mother Skin cancer Mother Relation Status Comments Father Mother Social History Tobacco Use Types Packs/Day Years Used Date Smoking Tobacco: Former Smokeless Tobacco: Never Alcohol Use Standard Drinks/Week Comments Not Currently 0 (1 standard drink = 0.6 oz pur e alcohol) Education Answer Date Recorded Are you interested in more education? Not on lucia e 07/26/2022 Are you concerned about learning? Not on file 07/26/2022 No 07/26/2022 No 07/26/2022 Digital Access Answer Date Recorded No 08/21/2022 No 08/21/2022 Reliable internet access at home? Not on file 08/21/2022 Device with a working camera? Not on file Comments Unknown Sex and Gender Information Value Date Recorded Sex Assigned at Female 12/30/2018 9:45 AM EDT Legal Sex Female 4:36 PM EST Gender Identity Female 12/30/2018 9:45 AM EDT Sexual Orientation Not on file Last Filed Vital Signs Vital Sign Reading Time Taken Comments Blood Pressure 133/84 11/12/2024 9:32 AM EDT Pulse 52 11/12/2024 9:32 AM EDT Temperature 36.6 C (97.8 F) 11/12/2024 9:32 AM EDT Respiratory Rate 20 11/12/2024 8:28 AM EDT Oxygen Saturation 98% 11/12/2024 9:32 AM EDT Inhaled Oxygen Concentration - - Weight 68.4 kg (150 lb 12.8 oz) 08/02/2024 8:22 AM EDT Height 153.7 cm (5' 0.5 ) 08/02/2024 8:22 AM EDT Body Mass Index 28.97 08/02/2024 8:22 AM EDT Plan of Treatment Upcoming Encounters Date Type Department Care Team (Late st Contact Info) Description 08/03/2025 8:30 AM EDT Office Visit [facility] [address] [place] [phone] Nick Valdez DO [address] [place] [id number] [email or web address] Health Maintenance Due Date Last Done Comments DEPRESSION SCREENING 1974 SMOKING Hx and SMOKELESS TOBACCO SCREENING 1975 HIV ONE-TIME SCREENING (18-65 YEARS) 01/03/1980 COLOGUARD 2007 COLONOSCOPY 2007 COLORECTAL CANCER SCREENING 2007 FIT TEST 2007 FOBT 2007 SIGMOIDOSCOPY 2007 VIRTUAL COLONOSCOPY 2007 RSV VACCINE (1 - Risk 60-74 years 1-dose series) 2022 MAMMOGRAM 05/24/2023 05/24/2021, 12/11/2015 COVID-19 VACCINE ( season) 2023 03/08/2022, 01/26/2021, 05/16/2020, Additional history exists PAP SMEAR 10/10/2024 10/10/2021, 12/23/2015 SCREENING FOR DIABETES 10/21/2027 10/20/2024, 2024 Adult Td,Tdap Booster 09/08/2028 09/08/2018, 008 LIPID PANEL 10/20/2029 10/20/2024, 08/30, 12/06/2022, Additional history exists ZOSTER VACCINES Completed 07/17/2020, 05/30, 03/20/2020 HEPATITIS C SCREENING Completed 07/06/2021 PNEUMOCOCCAL VACCINES (50+ years) Completed 10/15/2024, 12/11/2019, 09/29/2018 HEPATITIS A VACCINES Aged Out No long er eligible based on patient's age to complete this topic HIB VACCINES Aged Out No longer eligi ble based on patient's age to complete this topic MENINGOCOCCAL VACCINES (ACWY) Aged Out No longer eligible based on patient's age to complete this topic MENINGOCOCCAL VACCINES (B) Aged Out N o longer eligible based on patient's age to complete this topic Medical Devices Not on file Procedures Procedure Name Priority Date/Time Associated Diagnosis Comments TSH WITH REFLEX Routine 10/26/2024 2:21 PM EDT Chronic fatigue HEMOGLOBIN A1C Routine 10/20/2024 8:06 AM EDT Physical exam Chronic obstructive pulmonary disease, unspecified COPD type Age related osteoporosis, unspecified pathological fracture presence Mixed hyperlipidemia Pre-diabetes Migraine without aura and without status migrainosus, not intractable LIPID PANEL Routine 10/20/2024 8:06 AM EDT Physical exam Chronic obstructive pulmonary disease, unspecified COPD type Age related osteoporosis, unspecified pathological fracture presence Mixed hyperlipidemia Pre-diabetes Migraine without aura and without status migrainosus, not intractable 25-OH VITAMIN D Routine 10/20/2024 8:06 AM EDT Other osteoporosis without current pathological fracture RENAL PANEL Routine 10/20/2024 8:06 AM EDT Other osteoporosis without current pathological fracture RENAL PANEL Routine 09/21/2024 7:59 AM EDT Other osteoporosis without current pathological fracture RENAL PANEL Routine 09/03/2024 2:14 PM EDT Other osteoporosis without current pathological fracture PAP TEST Routine 10/10/2021 12:00 AM EDT HEPATITIS C ANTIBODY, QUALITATIVE Routine 07/06/2021 8:29 AM EDT Need for hepatitis C screening test HM MAMMOGRAPHY Routine 05/24/2021 from Last 3 Months or Most Recently Relevant to Health Maintenance Results * TSH with reflex (10/26/2024 2:21 PM EDT) TSH 1.85 0.27 - 4.20 uIU/mL [facility] Blood 10/26/2024 2:21 PM EDT 10/26/2024 2:30 PM EDT us Meg Bernardo [facility] LAB BLOOD ORDERABLES F inal Result [address] [id number] * (ABNORMAL) Renal panel (10/20/2024 8:06 AM EDT) Only the most recent of3 resultswithin the time period is included. SODIUM 141 133 - 146 mmol/L [facility] POTASSIUM 4.5 3.3 - 5.1 mmol/L [facility] CHLORIDE 106 96 - 108 mmol/L [facility] CO2 24 21 - 35 mmol/L [facility] GLUCOSE 103(H) 70 - 99 mg/dL [facility] BUN 17 6 - 19 mg/dL [facility] CREATININE 0.80 0.5 - 1.5 mg/dL [facility] CALCIUM 9.2 8.4 - 10.3 mg/dL [facility] PHOSPHORUS 3.5 2.7 - 4.5 mg/dL [facility] ALBUMIN 4.2 3.9 - 4.8 g/dL [facility] EGFR 83 >59 mL/min/1.7 3m2 [facility] Comment:Estimated glomerular filtration rate calculated using the CKD-EPI refit equation. ANION GAP 16 10 - 20 mmol/L [facility] Blood 10/20/2024 8:06 AM EDT 10/20/2024 8:12 AM EDT [facility] Final Resul t Performing Organization Address [facility] [[email or web address]] Co de Phone Number [address] [phone] * 25-OH vitamin D (10/20/2024 8:06 AM EDT) 25 OH VIT D (TOTAL) 42 30 - 60 ng/mL [facility] Blood 10/20/2024 8:06 AM EDT 10/20/2024 8:12 AM EDT [facility] Final Resul t Performing Organization Address [facility] de Phone Number [address] [address] * (ABNORMAL) Hemoglobin A1c (10/20/2024 8:06 AM EDT) HEMOGLOBIN A1C 6.1(H) 4.3 - 5.8 % [facility] Blood 10/20/2024 8:06 AM EDT 10/20/2024 8:13 AM EDT Omar Pearlta MD LAB BLOOD ORDERABLES Fi nal Result Performing Organization Address [facility]/ZIP Co de Phone Number [address] [address] * (ABNORMAL) Lipid panel (10/20/2024 8:06 AM EDT) HDL 52 mg/dL [facility] Comment: Interpretation <40 mg/dL: Low HDL cholesterol (major risk factor for CHD) Greater than or equal to 60 mg/dL: High HDL cholesterol ( negative risk factor for CHD) HDL - cholesterol is affected by a number of factors, e.g. smoking, excerise, hormones, sex and age. CHOLESTEROL 217 0 - 240 mg/dL [facility] TRIGLYCERIDES 103 30 - 160 mg/dL [facility] LDL 144(H) 50 - 129 mg/dL [facility] Comment: LDL levels in terms of risk for coronary heart disease: <100 mg/dL: Optimal 100-129 mg/dL: Near or above optimal 130-159 mg/dL: Borderline high 160-189 mg/dL: High >190 mg/dL: Very High CARDIAC RISK RATIO 4.2 3.3 - 4.4 [facility] Blood 10/20/2024 8:06 AM EDT 10/20/2024 8:12 AM EDT us Omar Peralta MD LAB BLOOD ORDERABLES nal Result [address] [address] * Pap Smear (10/10/2021 12:00 AM EDT) 10/10/2021 10/11/2021 10: 27 AM EDT Narrative SEE NARRATIVE - 10/15/2021 1:18 PM EDT [address] [address] Automotive Design Drafter: Tania Ellington MD HEALTH PROMOTION SPECIALIST Cytology Report FINAL DIAGNOSIS A. PAP SMEAR (SUREPATH) CE: SPECIMEN ADEQUACY: Satisfactory for evaluation; transformation zone present. INTERPRETATION: NEGATIVE FOR INTRAEPITHELIAL LESION OR MALIGNANCY. Electronically Signed Out By: BART Kingston(ASCP) The Pap test is a screening test primarily for squamous cancers and precursors and has associated false-negative and false-positive results. New technologies such as liquid-based preparations may decrease but will not eliminate all false-negative results. Regular sampling and follow-up of unexplained clinical signs and symptoms are recommended to minimize false negative results. PROCEDURES/ADDENDA HPV Testing (Requested) Ordered Date: 10/11/2021 A. PAP SMEAR (SUREPATH) CE: Human Papilloma Virus Test Negative for high-risk human papillomavirus types 16, 18, 45 and the Other high risk probe set (Includes 31, 33, 35, 39, 51, 52, 56, 58, 59, 66, 68) by [employer] Onclarity HR-HPV analysis. Clinical correlation is advised. This HPV test was performed at [facility], [address] [place] [address]. This test has been FDA approved for SurePath cervical cytology specimens. The accuracy and precision of this test for all other specimen sources has been verified in the Cytopathology Laboratory of the [facility] and has not been cleared or approved by the U.S. Food and Drug Administration. Clinical correlation is advised. CLINICAL HISTORY Date of Last Menstrual Period: Not Provided Menstrual History: Post Menopausal Other Clinical Conditions: Screening Pap SPECIMEN SOURCE A: PAP SMEAR (SUREPATH) CE Patient Name: PAPA AYALA : 1960 (Age: 61) Sex: F Institution: [facility] Location: [facility] Date of Collection: 10/10/2021 Date of Reported: 10/15/2021 13:02 Results to: Meg Bernadro MSN Meg Bernardo CN CYTOLOGY ORDERABLES Ed ited Result - Final SEE NARRATIVE * Hepatitis C antibody, qualitative (07/06/2021 8:29 AM EDT) HCV NON-REACTIV E NON-REACTI VE [facility] Blood 07/06/2021 8:29 AM EDT 07/06/2021 8:31 AM EDT us Estela Barahona MD LAB BLOOD ORDERABLES Final Result [facility] [address] [place] [address] * HM MAMMOGRAPHY FOR RESULT ENTRY ONLY (05/24/2021) us Historical Provider HEALTH MAINTENANCE Final Result from Last 3 Months or Most Recently Relevant to Health Maintenance Insurance [employer] [place] [address] [place] [address] EMPLOYEES FAMILY [facility] Care Teams Fsr Relationship Specialty Start Date End Date Omar Peralta MD [address] [place] [phone] PCP - General Hospitalist 01/28/22 Additional Source Comments The information contained in this document represents components of the legal health record. It is not the complete legal health record.[facility]
--- OUTSIDE RECORDS SUMMARY | 2024-11-24 08:22 | XMS_ITS | Encounter Summary ---
Author Organization [facility] Address [address] [place] [address] Care Team Providers Care Salon/Spa Manager Name Role Phone Estela Barahona MD Primary Care Provider Unava ilable Rene Llamas DO Primary Care Provider Jen vailaEstela Burrell MD Primary Care Provider Unava ilable Rosemary Pcp Primary Care Provider UnavailEstela Gruber MD Primary Care Provider Unava ilable Omar Peralta Primary Care Provider [phone] Estela Barahona MD Primary Care Provider Unava ilable Omar Peralta Primary Care Provider [phone] Encounter Details Date Type Department Care Team Description 06/20/2011 Release of Information Medical Records [address] [place] [id number] Abstract, Provider Social History Tobacco Use Types Packs/Day Years [...] on filedocumented in this encounter Care Teams Salon/Spa Manager Relationship Specialty Start Date End Date Estela Barahona MD PCP - General 09/17/10 08/20/20 Rene Llamas DO PCP - General Internal Medicine 08/21/20 1 Estela Barahona MD PCP - General Internal Medicine 02/06/21 02/07/21 [facility] PCP - General Internal Medicine 02/08/21 06/07/21 Estela Barahona MD PCP - General Internal Medicine 06/08/21 08/08/21 Omar Peralta [address] [place] [id number] PCP - General Internal Medicine 08/09/21 08/21/21 Estela Barahona MD [address] [place] [id number] PCP - General Pulverizing And Sifting Operator 08/22/21 11/01/21 Omar Peralta [address] [place] [phone] PCP - General Internal Medicine 11/02/21 documented as of this encounter
--- OUTSIDE RECORDS SUMMARY | 2024-11-24 08:22 | XMS_ITS | Encounter Summary ---
Author Organization [facility] Address [address] [place] [address] Care Team Providers Care Signing Agent Name Role Phone Estela Barahona MD Primary Care Provider Unava ilable Rene Llamas DO Primary Care Provider Jen vaEstela Brown MD Primary Care Provider Unava ilable Rosemary Pcp Primary Care Provider UnavailEstela Gruber MD Primary Care Provider Unava ilable Omar Peralta Primary Care Provider [phone] Estela Barahona MD Primary Care Provider Unava ilable Omar Peralta Primary Care Provider [phone] Encounter Details Date Type Department Care Team Description 08/31/2014 Aerial Photogrammetrist Report Medical Records [address] [place] [id number] Karen Elizabeth Social History Tobacco Use Types [...] on filedocumented in this encounter Care Teams Signing Agent Relationship Specialty Start Date End Date Estela Barahona MD PCP - General 09/17/10 08/20/20 Rene Llamas DO PCP - General Internal Medicine 08/21/20 1 Estela Barahona MD PCP - General Internal Medicine 02/06/21 02/07/21 Counts Include [facility] PCP - General Internal Medicine 02/08/21 06/07/21 Estela Barahona MD PCP - General Internal Medicine 06/08/21 08/08/21 Omar Peralta [address] [place] [phone] PCP - General Internal Medicine 08/09/21 08/21/21 Estela Barahona MD [address] [place] [id number] PCP - General Asset Protection Greeter 08/22/21 11/01/21 Omar Peralta [address] [place] [address] PCP - General Internal Medicine 11/02/21 documented as of this encounter
--- OUTSIDE RECORDS SUMMARY | 2024-11-24 08:22 | XMS_ITS | Encounter Summary ---
Author Organization [facility] Address [address] [place] [address] Care Team Providers Care Screening Unit Registered Nurse Name Role Phone Estela Barahona MD Primary Care Provider Unava ilable Rene Llamas DO Primary Care Provider Jen vailaEstela Burrell MD Primary Care Provider Unava ilable Rosemary Pcp Primary Care Provider UnavailEstela Gruber MD Primary Care Provider Unava ilable Omar Peralta Primary Care Provider [phone] Estela Barahona MD Primary Care Provider Unava ilable Omar Peralta Primary Care Provider [phone] Encounter Details Date Type Department Care Team Description 06/23/2014 Network Relations Consultant Report Medical Records [address] [place] [id number] Florencio Grimm Social History Tobacco Use Types Packs/Day Years [...] on filedocumented in this encounter Care Teams Screening Unit Registered Nurse Relationship Specialty Start Date End Date Estela Barahona MD PCP - General 09/17/10 08/20/20 Rene Llamas DO PCP - General Internal Medicine 08/21/20 1 Estela Barahona MD PCP - General Internal Medicine 02/06/21 02/07/21 [facility] PCP - General Internal Medicine 02/08/21 06/07/21 Estela Barahona MD PCP - General Internal Medicine 06/08/21 08/08/21 Omar Peralta [address] [place] [id number] PCP - General Internal Medicine 08/09/21 08/21/21 Estela Barahona MD [address] [place] [id number] PCP - General Sheep Boner 08/22/21 11/01/21 Omar Peralta [address] [place] [id number] PCP - General Internal Medicine 11/02/21 documented as of this encounter
--- OUTSIDE RECORDS SUMMARY | 2024-11-24 08:22 | XMS_ITS | Clinical Summary ---
Author Organization [facility] [address] [place] [address] Address [address] [facility] [place] [address] Phone Care Team Providers Care Scrap Burner Name Role Phone Omar Peralta MD Primary Care Provider Allergies No known active allergies Medications ibuprofen (ADVIL,MOTRIN ) 600 mg tablet Take 1 Tablet by mouth every 8 hours as needed for Pain. 09/19/19 24 Active acetaminophen (TYLENOL 8 HOUR) 650 mg 8 hr tablet Take 1 Tablet by mouth every 8 hours as needed for Pain. 09/19/19 24 Active fremanezumab- vfrm (Ajovy Syringe) 225 mg/1.5 mL syringe INJECT 1.5 ML SUBCUTANEOUS MONTHLY 30 DAY(S) 08/27/19 24 Active ondansetron (ZOFRAN) 4 mg tablet Take 1 tablet (4 mg total) by mouth 1 (one) time each day. 08/27/19 24 Active albuterol HFA (PROAIR HFA ; PROVENTIL HFA ; VENTOLIN HFA) 90 mcg/actuation inhaler Inhale 2 Puffs into the lungs every 4 hours as needed for Wheezing for up to 30 days. 09/19/19 23 Active calcium-vitam in D3-vitamin K 650 mg-12.5 mcg-40 mcg tablet,chewab le Take by mouth 2 times daily. Active magnesium oxide 500 mg capsule Take by mouth. Activ e omega-3 acid ethyl esters (LOVAZA) 1 gram capsule Take 1 Cap by mouth daily. 01/19/20 19 Active SUMAtriptan (IMITREX) 100 mg tablet Take 1 Tab by mouth daily as needed. May repeat dose once after 2 hours, if needed. Active lactobacillus acidoph-l.bul gar 100 million cell granules in packet Take 1 packet by mouth. Active esomeprazole (NexIUM) [address] capsule TAKE 1 CAPSULE BY MOUTH EVERY MORNING BEFORE BREAKFAST ON EMPTY STOMACH, WAIT 30 MINUTES AND THEN EAT TO ACTIVATE MEDICATION. 90 capsule 1 06/29/19 Active zoledronic acid/mannitol -water (RECLAST IV) Infuse into a venous catheter. yearly Active aspirin 81 mg EC tablet Take 1 tablet (81 mg total) by mouth 1 (one) time each day. Active umeclidinium- vilanteroL (Anoro Ellipta) 62.5-25 mcg/actuation inhaler Inhale 1 puff by mouth 1 (one) time each day. 1 each 11/17/19 026 Active nystatin (MYCOSTATIN) 100,000 unit/mL suspension Take 5 mL (500,000 Units total) by mouth 4 (four) times a day for 14 days. Swish in mouth and spit out. 280 mL 11/17/19 25 025 Active fluticasone-u meclidinium-v ilanterol (Trelegy Ellipta) 100-62.5-25 mcg inhaler Inhale 1 puff (100 mcg total) by mouth 1 (one) time each day. Rinse mouth with water after use to reduce aftertaste and incidence of candidiasis. Do not swallow. 1 each 03/17/20 24 025 Discontinued nystatin (MYCOSTATIN) 100,000 unit/mL suspension Take 5 mL (500,000 Units total) by mouth 4 (four) times a day for 14 days. Swish in mouth and spit out. 280 mL 11/16/19 025 Discontinued(R eorder) Hospital, Clinic, or Other Facility Administered Medication Ordered Dose Route Frequency Start Date End Date Status triamcinolone acetonide (KENALOG-40) 40 mg/mL injection 40 mgIndications:Lateral epicondylitis of left elbow 40 mg OTHER Once PRN Procedure 11/05/2024 11/05/2024 Ended Active Problems Problem Noted Date Diagnosed Date Mixed hyperlipidemia 06/29/2024 Pulmonary emphysema ([facility] V24, [facility] V28) 0 06/29/2024 Abdominal pain 01/09/2024 Migraine without status migrainosus, not intract able 06/06/2023 Venous insufficiency (chronic) (peripheral) 05/2022 Umbilical hernia without obstruction and without gangrene 06/21/2022 Abnormality of lung on CXR 09/29/2018 Chronic obstructive pulmonar y disease ([facility] V24, [facility] V28) 09/29/2018 Atelectasis 09/29/2018 Prediabetes 04/13/2018 Overview (01/09/2024): Nonfasting glucose 160, A1c 6.2 (04/04/2018). Prior glucoses were 110-140 Osteoporosis 02/05/2017 Lateral epicondylitis of right elbow 01/26/2016 Incomplete RBBB 01/17/2015 Overview (01/09/2024): EKG 01/02/15 and 2013 Stress incontinence 08/06/2010 Neck pain 06/05/2009 Lower back pain 05/10/2009 Thoracic back pain 05/10/2009 GERD (gastroesophageal reflux disease) 9 Encounters Date Type Department Care Team Description 11/15/2024 10:45 AM EDT Office Visit Adult [address] [phone] Bessie Alcantar PA Oral thrush (Primary Dx); Dry mouth; Prediabetes 11/05/2024 10:00 AM EDT Office Visit Orthopedic Surgery - [place] [address] [place] [id number] Lisette Moeller MD Lateral epicondylitis of left elbow (Primary Dx) 10/15/2024 3:00 PM EDT Office Visit [address] [phone] Omar Peralta MD Physical exam (Primary Dx); Chronic obstructive pulmonary disease, unspecified COPD type ([facility] V24, [facility] V28); Exertional dyspnea; Mixed hyperlipidemia; Prediabetes; Migraine without aura and without status migrainosus, not intractable; Age-related osteoporosis without current pathological fracture from Last 3 Months Immunizations Name Administration Dates Next Due Influenza Quadravalent, MDCK , 0.5ml, preservative free (Flucelvax) 6mo and older 01/03/2018 Influenza trivalent, with pr eservative (Fluzone; Afluria) 6mo and older 12/11/2019,01/18/2019,02/07/2017,01/22,2014,01/24/2013,01/05/2012 ,06/13/2011 Influenza, Unspecified 12/12/2023 Pfizer (ages 12 & older) Biv alent, COVID-19 03/08/2022 Pneumococcal conjugate 13 va lent (Prevnar 13, PCV13) 2mo and older 09/29/2018 Pneumococcal conjugate 20 va lent (Prevnar 20, PCV 20) 2mo and older 10/15/2024 Pneumococcal polysaccharide 23 valent (Pneumovax 23) 2yo and older 12/11/2019 Td Tetanus diptheria (Tdvax) 7yo and older 09/08/2018 Tdap Tetanus diptheria acell ular pertussis (Boostrix; Adacel) 7yo and older 10/23/2007 Zoster recombinant (Shingrix ) 19yo and older 06/21/2020,03/20/2020 Surgical History Surgery Date Site/Laterality Comments TONSILLECTOMY PROCEDURE: HISTORICAL TONSILLECTOMY ESOPHAGOGASTRODUODENOSCOPY 2013 PROCEDURE: NC ESOPHAGOGASTRODUODENOSCOPY TRANSORAL DIAGNOSTIC; COMMENT: Normal on PPI treatment COLONOSCOPY 2013 PROCEDURE: HISTORICAL COLONOSCOPY; COMMENT: Diverticulosis SHOULDER SURGERY 06/28/14 Right PROCEDURE: NC UNLISTED PROCEDURE SHOULDER; COMMENT: Dr. Glaser; arthroscopy with removal of calcification OTHER SURGICAL HISTORY 2014 PROCEDURE: HISTORICAL CA BASAL CELL; COMMENT: nose Medical History Medical History Date Comments GERD (gastroesophageal reflux disease) 9 DX:GERD (gastroesophageal reflux disease) Lower back pain 05/10/2009 DX:Lower back pa in Thoracic back pain 05/10/2009 DX:Thoracic b ack pain Neck pain 06/05/2009 DX:Neck pain Stress incontinence 08/06/2010 DX:Stress in continence Osteopenia 12/14/2012 DX:Osteopenia; C OMMENT: 11/2012 lumbar T -2.1, normal hip T score Former smoker 09/28/2016 DX:Former smoker Deep venous thrombosis ([facility] V24, [facility] V28) 12/15/2017 DX:Deep venous thrombosis (H CC) Basal cell carcinoma (BCC) of ala nasi 2014 DX:Basal cell carcinoma (BCC) of ala nasi Bronchitis DX:Bronchitis Abdominal pain DX:Abdominal phillip n Asthma DX:Asthma Irritable bowel syndrome DX:Irri table bowel syndrome Abdominal cramping DX:Abdominal cramping Nausea DX:Nausea Globus sensation DX:Globus sensa tion Straining with stools DX:Straini ng with stools Epigastric pain DX:Epigastric pa in Swallowing disorder DX:Swallowin g disorder Functional dyspepsia DX:Function al dyspepsia Mixed hyperlipidemia 06/29/2024 Osteoporosis Family History Medical History Relation Name Comments Cataracts Father Glaucoma Father Cataracts Mother Skin cancer Mother Other: thyroid cancer Sister 1 Blindness Neg Hx Breast cancer Neg Hx Colon cancer Neg Hx Macular degeneration Neg Hx Ovarian cancer Neg Hx Strabismus Neg Hx Relation Name Status Comments Brother 1 Alive Brother 2 Alive Daughter Alive Father h/o TB, COPD Mother Alive CAD, PVD, HTN, Hypercholesterolemia Sister 1 Alive Sister 2 Alive Thyroid Cancer Sister 3 Alive Depression Sister 4 Alive Son 1 Alive Son 2 Alive Social History Tobacco Use Types Packs/Day Years Used Date Smoking Tobacco: Former Cigarettes 2 21.6 1 - 08/06/1997 Smokeless Tobacco: Never Tobacco Cessation:Counseling Given: Not Answered Alcohol Use Standard Drinks/Week Comments No 0 (1 standard drink = 0.6 oz pur e alcohol) Housing Instability Answer Date Recorde d Are you worried that in the next 2 months you may not have stable housing? No 06/30/2024 Food Access & Nutrition Answer Date Rec orded Do you have access to a vari ety of food including fruits and vegetables? Yes 06/30/2024 Access to Healthcare Answer Date Record ed Within the last 3 months, domenico w many times did you visit the emergency department for your medical care? 0 06/30/2024 Health Literacy Answer Date Recorded How often do you need to hav e someone help you when you read instructions, pamphlets, or other written material from your doctor or pharmacy? Never 06/30/2024 Caregiver: How often do you need to have someone help you when you read instructions, pamphlets, or other written material from your doctor or pharmacy? Not on file 06/30/2024 Financial Risk Answer Date Recorded How hard is it for you to pa y for the very basics like food, housing, medical care, and air conditioning / heating? Not very hard 06/30/2024 Transportation Answer Date Recorded Has the lack of transportati on kept you from meetings, work, or from getting things needed for daily living? No Has the lack of transportati on kept you from medical appointments or from getting medications? No 06/30/2024 Social Isolation Answer Date Recorded How often do you feel lonely or isolated from th ose around you? Never 06/30/2024 Food Risk Answer Date Recorded Within the past 12 months we worried whether our food would run out before we got money to buy more. Never true 06/30/2024 Within the past 12 months th e food we bought just didn't last and we didn't have money to get more. Never true 06/30/2024 Dependent Care Answer Date Recorded Do you need help finding or paying for care for your loved ones. For example, maternal child nurse or elderly care for an older adult? No 06/30/2024 Education Answer Date Recorded Do you think completing more education or training, like finishing a GED, going to college, or learning a trade, would be helpful for you? No 06/30/2024 Employment and Income Answer Date Recor ded During the last four weeks, have you been actively looking for work? No 06/30/2024 Living Situation Answer Date Recorded What is your living situation? 0 06/30/2024 Interpersonal Safety Answer Date Record ed Physical Abuse 05/17/2024 Verbal Abuse 05/17/2024 Comments No Sex and Gender Information Value Date Recorded Sex Assigned at Female 05/17/2024 1:23 PM EST Legal Sex Female 12:56 AM EST Gender Identity Female 05/17/2024 1:23 PM EST Sexual Orientation Straight 05/17/2024 1: 23 PM EST Obstetrics History Last Filed Vital Signs Vital Sign Reading Time Taken Comments Blood Pressure 114/74 11/15/2024 10:21 AM EDT Pulse 70 11/15/2024 10:21 AM EDT Temperature 36.6 C (97.9 F) 11/15/2024 10:21 AM EDT Respiratory Rate 16 11/15/2024 10:21 AM EDT Oxygen Saturation 97% 08/20/2024 9:01 AM EDT Inhaled Oxygen Concentration - - Weight 66.2 kg (146 lb) 11/15/2024 10:21 AM EDT Height 152.4 cm (5') 11/15/2024 10:21 AM EDT Body Mass Index 28.51 11/15/2024 10:21 AM EDT Plan of Treatment Upcoming Encounters Date Type Department Care Team (Late st Contact Info) Description 03/04/2025 8:30 AM EST Office Visit Pulmonolgy - [place] [address] [facility] [address] [place] [phone] Aguilar Gao MD [address] [place] [address] 04/22/2025 8:00 AM EST Office Visit Adult Medicine [facility] [address] [place] [address] Omar Peralta MD [address] [place] [address] Health Maintenance Due Date Last Done Comments RSV Immunization Adult Patients (1 - Risk 60-74 years 1-dose series) 2022 COVID-19 Vaccine ( season) 2023 03/08/2022, 01/26/2021, 05/16/2020, Additional history exists Influenza Vaccine (#1) 2024 , 12/31/2022, 01/03/2022, Additional history exists Social Influencers of Health Screening 06/30/2025 06/30/2024 Osteoporosis Screening (Bone Density Screening) 07/23/2025 07/23/2024, 07/05/2022, 06/01/2021, Additional history exists Breast Cancer Screening 06/25/2026 06/25/2024 DTaP,Tdap,and Td Vaccines (3 - Td or Tdap) 09/08/2028 09/08/2018, 10/23/2007 Cholesterol Screening (Lipid Panel) 10/20/2029 10/20/2024, 09/19/2023, 09/19/2023, Additional history exists Colorectal Cancer Screening: Colonoscopy 05/17/2034 05/17/2024 Zoster Vaccines Completed 07/17/2020, 05/30, 03/20/2020 Hepatitis C Screening Completed 07/06/2021, 016 Pneumococcal Vaccine: 50+ Years Completed 10/15/2024, 12/11/2019, 09/29/2018 Depression Screening Completed 11/13/2024 Cervical Cancer Screening: HPV Discontinued HIB Vaccines Aged Out No longer eligi ble based on patient's age to complete this topic HIV Screening Discontinued HPV Vaccines Aged Out No longer eligi ble based on patient's age to complete this topic Hepatitis A Vaccines Aged Out No long er eligible based on patient's age to complete this topic Hepatitis B Vaccines Aged Out No long er eligible based on patient's age to complete this topic IPV Vaccines Aged Out No longer eligi ble based on patient's age to complete this topic MMR Vaccines Aged Out No longer eligi ble based on patient's age to complete this topic Meningococcal ACWY Vaccine Aged Out N o longer eligible based on patient's age to complete this topic Meningococcal B Vaccine Aged Out No l onger eligible based on patient's age to complete this topic RSV Immunization Patients Under 20 months Aged Out No longer eligible based on patient's age to complete this topic Varicella Vaccines Aged Out No longer eligible based on patient's age to complete this topic Procedures Procedure Name Priority Date/Time Associated Diagnosis Comments NC ARTHROCENTESIS/ASPIR ATION/INJECTION INTERMEDIATE JOINT/BURSA WO U/S GUID Routine 11/05/2024 10:00 AM EDT Lateral epicondylitis of left elbow EXTERNAL CLINICAL LAB 10/26/2024 EXTERNAL CLINICAL LAB 10/20/2024 EXTERNAL CLINICAL LAB 10/20/2024 EXTERNAL CLINICAL LAB 10/20/2024 ECG 12-LEAD Routine 10/15/2024 3:27 PM EDT Exertional dyspnea EXTERNAL CLINICAL LAB 09/21/2024 EXTERNAL CLINICAL LAB 09/03/2024 BD BONE DENSITY DXA AXIAL SKELETON Routine 07/23/2024 11:57 AM EDT Screening for osteoporosis COLONOSCOPY Routine 05/17/2024 2:18 PM EST Colon cancer screening LIPID PANEL Routine 09/19/2023 HM HEPATITIS C SCREENING Routine 12/14/2015 from Last 3 Months or Most Recently Relevant to Health Maintenance Results * NC ARTHROCENTESIS/ASPIRATION/INJECTION INTERMEDIATE JOINT/BURSA WO U/S GUID (11/05/2024 10:00 AM EDT) Lisette Douglas MD - 11/05/2024 10:00 AM EDT Lisette Moeller MD 11/05/2024 6:25 PM Medium Inj/Asp: L elbow Indications: pain Details: 21 G needle, lateral approach Medications: 40 mg triamcinolone acetonide 40 mg/mL Site was prepped in standard fashion using alcohol swab, sterile technique was used to perform the injection to the left lateral condyle. The patient tolerated the procedure well and a band-aid dressing was applied Informed Consent: Site: Lateral condyle Laterality: Left Relevant images/test results available and reviewed: yes Health status cleared: Yes Procedure/treatment, purpose, treatment alternatives, risks/potential complications and benefits explained: yes Patient questions answered: yes Patient agrees, verbalizes understanding, and wants to proceed: yes Consent given by: Patient Informed consent discussion completed by Physician/EVA with patient: Verbal Pre-procedure timeout performed: yes Lisette Moeller MD IN CLINIC/BEDSIDE ORDERABLES Final Result * External clinical lab (10/26/2024) Only the most recent of6 resultswithin the time period is included. us Provider [facility] BLOOD ORDERABLES Fin al Result * ECG 12 lead (10/15/2024 3:27 PM EDT) Narrative Omar Peralta MD - 10/15/2024 3:27 PM EDT EKG-normal sinus rhythm, no acute ST-T changes. us Omar Peralta MD ECG ORDERABLES Final Resul t * BD Bone Density DXA Axial Skeleton (07/23/2024 11:57 AM EDT) Anatomical Region Laterality Modality Wrist, Hip, L-spine Bone Densito metry 07/26/2024 9:08 AM EDT Impressions 07/26/2024 9:10 AM EDT Osteoporosis. The NOF guidelines recommend that FDA approved medical therapies be considered in postmenopausal women and men age >50 years with a: i. Hip or vertebral (clinical or morphometric) fracture ii. T score of < -2.5 at the spine or hip iii. 10 year fracture probability by FRAX of >3% for hip fracture, or >20% for major osteoporotic fracture PLEASE NOTE: W.H.O. classification is based on lowest measured density at the spine, femoral neck, or total hip.This classification has prognostic significance when applied to post menopausal women and older men. 1) The World Health Organization defines low BMD as follows: T-score Normal at or > -1 Osteopenia < -1 and > -2.5 Osteoporosis at or < -2.5 without fractures Established osteoporosis < -2.5 with fractures -------- FINAL REPORT -------- Dictated By: Mychal Dalton Dictated Date: 07/26/2024 09:08 ET Assigned Physician: Mychal Dalton Reviewed and Electronically Signed By: Mychal Dalton Signed Date: 07/26/2024 09:10 ET Workstation ID: [id number] Transcribed By: Self Edit Transcribed Date: 07/26/2024 09:08 ET Narrative 07/26/2024 9:10 AM EDT Clinical history: post-menopausal osteoporosis prevention Scans of the lumbar spine and hips were performed on a [employer] fan beam bone densitometer. Bone mineral density measurements and associated T and Z scores respectively are as follows: Lumbar Spine: L1-L4 BMD: 0.738 g/cm2 T-Score: -2.8 Z-Score: -1.2 Compared with the prior study dated 07/05/2022, the BMD reading has decreased which is statistically significant Left Proximal Femur: Neck BMD: 0.766 g/cm2 T-Score: -0.7 Z-Score: 0.6 Total BMD: 0.837 g/cm2 T-Score: -0.9 Z-Score: 0.2 Compared with the prior study the mean BMD reading in the total left hip has increased which is statistically significant Compared with standards for the young adult, lowest measured bone density places the patient in the W.H.O. osteoporotic range. Procedure Note Mychal Dalton MD - 07/26/2024 Clinical history: post-menopausal osteoporosis prevention Scans of the lumbar spine and hips were performed on a [employer] beam bone densitometer. Bone mineral density measurements and associated T and Z scoresrespectively are as follows: Lumbar Spine: L1-L4 BMD: 0.738 g/cm2 T-Score: -2.8 Z-Score: -1.2 Compared with the prior study dated 07/05/2022, the BMD reading hasdecreased which is statistically significant Left Proximal Femur: Neck BMD: 0.766 g/cm2 T-Score: -0.7 Z-Score: 0.6 Total BMD: 0.837 g/cm2 T-Score: -0.9 Z-Score: 0.2 Compared with the prior study the mean BMD reading in the total left hiphas increased which is statistically significant Compared with standards for the young adult, lowest measured bone densityplaces the patient in the W.H.O. osteoporotic range. IMPRESSION: Osteoporosis. The NOF guidelines recommend that FDA approved medical therapies beconsidered in postmenopausal women and men age >50 years with a: i. Hip or vertebral (clinical or morphometric) fracture ii. T score of < -2.5 at the spine or hip iii. 10 year fracture probability by FRAX of >3% for hip fracture, or >20%for major osteoporotic fracture PLEASE NOTE: W.H.O. classification is based on lowest measured density at the spine,femoral neck, or total hip.This classification has prognostic significancewhen applied to post menopausal women and older men. 1) The World Health Organization defines low BMD as follows: T-score Normal at or > -1 Osteopenia < -1 and > -2.5 Osteoporosis at or < -2.5 withoutfractures Established osteoporosis < -2.5 with fractures -------- FINAL REPORT -------- Dictated By: Mychla Dalton Dictated Date: 07/26/2024 09:08 ET Assigned Physician: Mychal Dalton Reviewed and Electronically Signed By: Mychal Dalton Signed Date: 07/26/2024 09:10 ET Workstation ID: [id number] Transcribed By: Self Edit Transcribed Date: 07/26/2024 09:08 ET [facility] Tabatha Porfirio Katharine ALBARRAN IM DXA PROCEDURES Final Result * COLONOSCOPY Anesthesia - MAC; [facility] ENDOSCOPY (05/17/2024 2:18 PM EST) Anatomical Region Laterality Modality Endoscopy 05/17/2024 1:53 PM EST Impressions 05/17/2024 2:18 PM EST - Hemorrhoids found on perianal exam. - One 5 mm polyp in the sigmoid colon, removed with a cold snare. Resected and retrieved. - The examination was otherwise normal on direct and retroflexion views. Recommendation: - - Discharge patient to home. - High fiber diet. - Continue present medications. - Await pathology results. - Repeat colonoscopy for surveillance based on pathology results. Narrative 05/17/2024 2:18 PM EST [facility] GI Patient Name: Yolande Ayala Procedure Date: 05/17/2024 1:53 PM Date of : 1960 Age: 64 Gender: Female Note Status: Finalized Attending MD: Lien Rodriguez DO, [id number] Procedure Date No Time: 05/17/2024 Procedure: Colonoscopy Indications: Screening for colorectal malignant neoplasm Providers: Lien Rodriguez DO Referring MD: Omar Peralta MD Medicines: Monitored Anesthesia Care Complications: No immediate complications. Estimated blood loss: Minimal. Estimated Blood Loss: Estimated blood loss was minimal. Procedure: Pre-Anesthesia Assessment: - - Prior to the procedure, a History and Physical was performed, and patient medications and allergies were reviewed. The patient is competent. The risks and benefits of the procedure and the sedation options and risks were discussed with the patient. All questions were answered and informed consent was obtained. Patient identification and proposed procedure were verified by the physician, the nurse, the anesthesiologist, the marine engine driver and the cmm technician in the pre-procedure area in the endoscopy suite. Mental Status Examination: alert and oriented. Airway Examination: normal oropharyngeal airway and neck mobility. Respiratory Examination: clear to auscultation. CV Examination: normal. Prophylactic Antibiotics: The patient does not require prophylactic antibiotics. Prior Anticoagulants: The patient has taken no anticoagulant or antiplatelet agents. ASA Grade Assessment: II - A patient with severe systemic disease. After reviewing the risks and benefits, the patient was deemed in satisfactory condition to undergo the procedure. The anesthesia plan was to use monitored anesthesia care (MAC). Immediately prior to administration of medications, the patient was re-assessed for adequacy to receive sedatives. The heart rate, respiratory rate, oxygen saturations, blood pressure, adequacy of pulmonary ventilation, and response to care were monitored throughout the procedure. The physical status of the patient was re-assessed after the procedure. After I obtained informed consent, the scope was passed under direct vision. Throughout the procedure, the patient's blood pressure, pulse, and oxygen saturations were monitored continuously. The Colonoscope was introduced through the anus and advanced to the cecum, identified by appendiceal orifice and ileocecal valve. The colonoscopy was performed without difficulty. The patient tolerated the procedure well. The quality of the bowel preparation was good. Findings: Hemorrhoids were found on perianal exam. A 5 mm polyp was found in the sigmoid colon. The polyp was sessile. The polyp was removed with a cold snare. Resection and retrieval were complete. Estimated blood loss was minimal. A few small-mouthed diverticula were found in the sigmoid colon and descending colon. There was no evidence of diverticular bleeding. The exam was otherwise without abnormality on direct and retroflexion views. Procedure Code(s): --- Professional --- 97123, Colonoscopy, flexible; with removal of tumor(s), polyp(s), or other lesion(s) by snare technique Diagnosis Code(s): --- Professional --- Z12.11, Encounter for screening for malignant neoplasm of colon K64.9, Unspecified hemorrhoids D12.5, Benign neoplasm of sigmoid colon CPT copyright 2020 [employer]. All rights reserved. The codes documented in this report are preliminary and upon humid system operator review may be revised to meet current compliance requirements. LIEN Rodriguez DO 05/17/2024 2:18:03 PM This report has been signed electronically.Lien Rodriguez DO Number of Addenda: 0 Note Initiated On: 05/17/2024 1:53 PM Scope Withdrawal Time: 0 hours 6 minutes 48 seconds Scope In: 2:03:03 PM Scope Out: 2:15:44 PM Endoscopy Department at [facility] - [address] [place] [id number] Procedure Note Lien Rodriguez DO - 05/17/2024 [facility] GI Patient Name: Yolande Ayala Procedure Date: 05/17/2024 1:53 PM Date of : 1960 Age: 64 Gender: Female Note Status: Finalized Attending MD: Lien Rodriguez DO, [id number] Procedure Date No Time: 05/17/2024 Procedure: Colonoscopy Indications: Screening for colorectal malignant neoplasm Providers: Lien Rodriguez DO Referring MD: Omar Peralta MD Medicines: Monitored Anesthesia Care Complications: No immediate complications. Estimated blood loss: Minimal. Estimated Blood Loss: Estimated blood loss was minimal. Procedure: Pre-Anesthesia Assessment: - - Prior to the procedure, a History and Physicalwas performed, and patient medications and allergieswere reviewed. The patient is competent. The risks and benefits of the procedure and the sedation optionsand risks were discussed with the patient. Allquestions were answered and informed consent was obtained. Patient identification and proposed procedure were verified by the physician, the nurse, the anesthesiologist, the marine engine driver and thetechnician in the pre-procedure area in the endoscopy suite. Mental Status Examination: alert and oriented.Airway Examination: normal oropharyngeal airway and neck mobility. Respiratory Examination: clear to auscultation. CV Examination: normal. Prophylactic Antibiotics: The patient does not requireprophylactic antibiotics. Prior Anticoagulants: The patient has taken no anticoagulant or antiplatelet agents. ASA Grade Assessment: II - A patient with severesystemic disease. After reviewing the risks and benefits,the patient was deemed in satisfactory condition to undergo the procedure. The anesthesia plan was touse monitored anesthesia care (MAC). Immediately priorto administration of medications, the patient was re-assessed for adequacy to receive sedatives. The heart rate, respiratory rate, oxygen saturations, blood pressure, adequacy of pulmonary ventilation,and response to care were monitored throughout the procedure. The physical status of the patient was re-assessed after the procedure. After I obtained informed consent, the scope was passed under direct vision. Throughout theprocedure, the patient's blood pressure, pulse, and oxygen saturations were monitored continuously. The Colonoscope was introduced through the anus and advanced to the cecum, identified by appendiceal orifice and ileocecal valve. The colonoscopy was performed without difficulty. The patient tolerated the procedure well. The quality of the bowel preparation was good. Findings: Hemorrhoids were found on perianal exam. A 5 mm polyp was found in the sigmoid colon. Thepolyp was sessile. The polyp was removed with a coldsnare. Resection and retrieval were complete. Estimatedblood loss was minimal. A few small-mouthed diverticula were found in the sigmoid colon and descending colon. There was no evidence of diverticular bleeding. The exam was otherwise without abnormality ondirect and retroflexion views. Procedure Code(s): --- Professional --- 51986, Colonoscopy, flexible; with removal of tumor(s), polyp(s), or other lesion(s) by snare technique Diagnosis Code(s): --- Professional --- Z12.11, Encounter for screening for malignantneoplasm of colon K64.9, Unspecified hemorrhoids D12.5, Benign neoplasm of sigmoid colon CPT copyright 2020 [employer]. All rights reserved. The codes documented in this report are preliminary and upon humid system operator reviewmay be revised to meet current compliance requirements. LIEN Rodriguez DO 05/17/2024 2:18:03 PM This report has been signed electronically.Lien Rodriguez DO Number of Addenda: 0 Note Initiated On: 05/17/2024 1:53 PM Scope Withdrawal Time: 0 hours 6 minutes 48 seconds Scope In: 2:03:03 PM Scope Out: 2:15:44 PM Endoscopy Department at [facility] - [address] [place] [phone] IMPRESSION: - Hemorrhoids found on perianal exam. - One 5 mm polyp in the sigmoid colon, removed witha cold snare. Resected and retrieved. - The examination was otherwise normal on directand retroflexion views. Recommendation: - - Discharge patient to home. - High fiber diet. - Continue present medications. - Await pathology results. - Repeat colonoscopy for surveillance based on pathology results. Lien Rodriguez DO GI~PROCEDURE ORDERABLES Final Re sult * (ABNORMAL) Lipid panel (09/19/2023) LDL/HDL Ratio 4 0 - 4 Triglycerides 143 0 - 150 mg/dL Cholesterol 220(A) 0 - 200 mg/dL HDL 51 >=40 mg/dL LDL Cholesterol 141(A) 0 - 100 mg/dL Blood Venous blood specimen / Unknown Result [facility] Historical Provider LAB BLOOD ORDERABLES Jessica l Result * Hepatitis C Screening (12/14/2015) Hepatitis C Screening abstracted Historical Provider HEALTH MAINTENANCE Final Result from Last 3 Months or Most Recently Relevant to Health Maintenance Insurance [facility] Care Teams Scrap Burner Relationship Specialty Start Date End Date Omar Peralta MD [address] [place] [address] PCP - General Internal Medicine 11/02/21
--- OUTSIDE RECORDS SUMMARY | 2024-11-24 08:22 | XMS_ITS | Encounter Summary ---
Author Organization [facility] Address [address] [place] [address] Care Team Providers Care Pharmacy Benefit Manager Name Role Phone Estela Barahona MD Primary Care Provider Unava ilable Rene Llamas DO Primary Care Provider Jen vailaEstela Burrell MD Primary Care Provider Unava ilable Rosemary Pcp Primary Care Provider UnavailEstela Gruber MD Primary Care Provider Unava ilable Omar Peralta Primary Care Provider [phone] Estela Barahona MD Primary Care Provider Unava ilable Omar Peralta Primary Care Provider [phone] Encounter Details Date Type Department Care Team Description 02/22/2014 Mold Holder Report Medical Records [address] [place] [address] Alexandrea Burns MD Social History Tobacco Use [...] on filedocumented in this encounter Care Teams Pharmacy Benefit Manager Relationship Specialty Start Date End Date Estela Barahona MD PCP - General 09/17/10 08/20/20 Rene Llamas DO PCP - General Internal Medicine 08/21/20 1 Estela Barahona MD PCP - General Internal Medicine 02/06/21 02/07/21 [facility] PCP - General Internal Medicine 02/08/21 06/07/21 Estela Barahona MD PCP - General Internal Medicine 06/08/21 08/08/21 Omar Peralta [address] [place] [address] PCP - General Internal Medicine 08/09/21 08/21/21 Estela Barahona MD [address] [place] [address] PCP - General Search Consultant 08/22/21 11/01/21 Omar Peralta [address] [place] [address] PCP - General Internal Medicine 11/02/21 documented as of this encounter
--- OUTSIDE RECORDS SUMMARY | 2024-11-24 08:23 | XMS_ITS | Encounter Summary ---
Author Organization [facility] Address [address] [place] [address] Care Team Providers Care Night Shift Manager Name Role Phone Rene Llamas DO Primary Care Provider Estela Chang MD Primary Care Provider Unava iljacobo [facility], Pcp Primary Care Provider Estela Nunes MD Primary Care Provider Unava ilOmar Ulloa Primary Care Provider [phone] Estela Barahona MD Primary Care Provider Unava Omar Parkinson Primary Care Provider Encounter Details Date Type Department Care Team Description 11/06/2020 Pt. Non Urgent Medical Question Adult Medicine [address] [address] Vivian Kebede PA [address] [place] [address] Social History Tobacco Use Types Packs/Day Years [...] encounter Miscellaneous Notes * Telephone Encounter - Leslie Varma M.A. - 11/06/2020 2:29 PM EDTFrom: Yolande Ayala To: Jackie Kebede Sent: 11/06/2020 1:24 PM EDT Subject: Reschedule appt I attempted three times this morning to try and reschedule this appointment for the week of 11/13 onany day and time with who ever as availability. My last attempt today I was on hold for 33 minutes and 25 seconds when I finally had to hang up. Can someone call me and help me with this ? Thank you Irene Ayala documented in this encounter Plan of Treatment Not on file documented as of this encounter Visit Diagnoses Not on filedocumented in this encounter Care Teams Night Shift Manager Relationship Specialty Start Date End Date Rene Llamas DO PCP - General Internal Medicine 08/21/20 1 Estela Barahona MD PCP - General Internal Medicine 02/06/21 02/07/21 [facility] PCP - General Internal Medicine 02/08/21 06/07/21 Estela Barahona MD PCP - General Internal Medicine 06/08/21 08/08/21 Omar Peralta [address] [place] [address] PCP - General Internal Medicine 08/09/21 08/21/21 Estela Barahona MD [address] [place] [address] PCP - General Animal Sticker 08/22/21 11/01/21 Omar Peralta [address] [place] [address] PCP - General Internal Medicine 11/02/21 documented as of this encounter
--- OUTSIDE RECORDS SUMMARY | 2024-11-24 08:23 | XMS_ITS | Encounter Summary ---
Author Organization [facility] Address [address] [place] [address] Care Team Providers Care Fleet Technician Name Role Phone Rene Llamas DO Primary Care Provider Estela Chang MD Primary Care Provider Unava iljacobo [facility], Pcp Primary Care Provider Estela Nunes MD Primary Care Provider Unava ilOmar Ulloa Primary Care Provider [phone] Estela Barahona MD Primary Care Provider Unava Omar Parkinson Primary Care Provider [phone] Reason for Visit * Reason Onset Date Comments Faxed Refill 10/04/2020 Encounter Details Date Type Department Care Team Description 10/04/2020 Refill Adult Medicine [address] [address] Ju Rievra PA-C [address] [place] [address] Faxed Refill Social History Tobacco Use Types Packs/Day Years [...] Exposure Response Date Recorded In the last month, have you been in contact with someone who was confirmed or suspected to have Coronavirus / COVID-19? No / Unsure 09/22/2020 1:35 PM EDT documented as of this encounter Miscellaneous Notes * Telephone Encounter - Aurelio Duncan - 10/04/2020 12:57 PM EDT Patient would like script to be: E-PRESCRIBED/FAXED TO PHARMACY WHEN WAS THE PATIENT'S LAST APPOINTMENT IN ADULT MEDICINE? 09/01/20 WHEN WAS THE LAST TIME THE PATIENT SAW THEIR PCP? Same as above Does patient have an upcoming appointment? No, Dr. Estela Barahona did not specify in the appointment on 05/09/20 when/if the patient should follow up for this medication. (THE MEDICATION REQUESTED IS ON THE MED LIST ABOVE) All of the medications requested were on the CURRENT MEDS list Did you check the Pharmacy information above?: YES Patient wants: 90 -day supply Is this a mail order prescription request ? NO If the refill is from a FAXED refill request what is the RX # listed on the fax? [id number] Patients current insurance carrier is: Payor: [employer] / Plan: PPO $10/$15 [id number] / Product Type: PPO [id number] documented in this encounter Plan of Treatment Not on file documented as of this encounter Visit Diagnoses Not on filedocumented in this encounter Care Teams Fleet Technician Relationship Specialty Start Date End Date Rene Llamas DO PCP - General Internal Medicine 08/21/20 Estela Barahona MD PCP - General Internal Medicine 02/06/21 02/07/21 [facility] PCP - General Internal Medicine 02/08/21 06/07/21 Estela Barahona MD PCP - General Internal Medicine 06/08/21 08/08/21 Omar Peralta [address] [place] [address] PCP - General Internal Medicine 08/09/21 08/21/21 Estela Barahona MD [address] [place] [address] PCP - General Nursing Program Chair 08/22/21 11/01/21 Omar Peralta [address] [place] [address] PCP - General Internal Medicine 11/02/21 documented as of this encounter
--- OUTSIDE RECORDS SUMMARY | 2024-11-24 08:23 | XMS_ITS | Encounter Summary ---
Author Organization [facility] Address [address] [place] [address] Care Team Providers Care Calenderer Name Role Phone Estela Barahona MD Primary Care Provider Unava ilable Rene Llamas DO Primary Care Provider Jen vailaEstela Burrell MD Primary Care Provider Unava ilable Rosemary Pcp Primary Care Provider UnavailEstela Gruber MD Primary Care Provider Unava ilable Omar Peralta Primary Care Provider [phone] Estela Barahona MD Primary Care Provider Unava ilable Omar Peralta Primary Care Provider [phone] Encounter Details Date Type Department Care Team Description 04/28/2019 Pt. Non Urgent Medic al Question Podiatry - [address] [address] Divine Clements DPM Social History Tobacco Use Types Packs/Day Years [...] encounter Miscellaneous Notes * Telephone Encounter - Altagracia Sánchez M.A. - 04/28/2019 7:53 AM ESTFrom: Yolande Ayala To: Divine Clements DPM Sent: 04/28/2019 7:12 AM EST Subject: Referral Good morning DR lCements , I received a letter regarding a referral to pain management, is [facility] ? The letter says to bring any MRI or xrays to the appointment, do I need to bring them with me or will they be faxed to them ? Thank you, Irene documented in this encounter Plan of Treatment Not on file documented as of this encounter Visit Diagnoses Not on filedocumented in this encounter Care Teams Calenderer Relationship Specialty Start Date End Date Estela Barahona MD PCP - General 09/17/10 08/20/20 Rene Llamas DO PCP - General Internal Medicine 08/21/20 1 Estela Barahona MD PCP - General Internal Medicine 02/06/21 02/07/21 [facility] PCP - General Internal Medicine 02/08/21 06/07/21 Estela Barahona MD PCP - General Internal Medicine 06/08/21 08/08/21 Omar Peralta [address] [place] [address] PCP - General Internal Medicine 08/09/21 08/21/21 Estela Barahona MD [address] [place] [address] PCP - General Twister Operator 08/22/21 11/01/21 Omar Peralta [address] [place] [address] PCP - General Internal Medicine 11/02/21 documented as of this encounter
--- OUTSIDE RECORDS SUMMARY | 2024-11-24 08:23 | XMS_ITS | Encounter Summary ---
Author Organization [facility] Address [address] [place] [address] Care Team Providers Care Service Learning Coordinator Name Role Phone Estela Barahona MD Primary Care Provider Unava ilable Rene Llamas DO Primary Care Provider Jen vailaEstela Burrell MD Primary Care Provider Unava ilable Rosemary [facility] Primary Care Provider Estela Nunes MD Primary Care Provider Unava ilable Omar Peralta Primary Care Provider [phone] Estela Barahona MD Primary Care Provider Unava ilable Omar Peralta Primary Care Provider [phone] Reason for Referral * Non DOMINIC (Routine) - Authorized/Booked Specialty Diagnoses / Procedures Referred By Contvinnie t Referred To Contact Physiatry Procedures REFERRAL TO PHYSIATRY Estela Barahona MD [address] [place] [address] Preet Hensley DO [address] [address] Referral ID Status Reason Start Date Expiration Date V isits Requested Visits Authorized [id number] Authorized/B ooked 08/02/2019 08/01/2020 1 1 Encounter Details Date Type Department Care Team Description 07/22/2019 Pt. Non Urgent Medic al Question Podiatry - [address] [address] Divine Clements DPM Social History Tobacco Use [...] as of this encounter Progress Notes * Simone Jackson - 07/30/2019 1:23 PM EDTFrom: Yolande Ayala To: Divine Clements DPM Sent: 07/22/2019 10:27 AM EDT Subject: Pain management Hi DR Clements , I just received a call from the pain management office you referred me to telling me they canceled my appointment and they don't take my insurance. Can I just see DR King again ? Iwaited all this time to see someone only for them to inform me a week before my appointment that they don't take my insurance. Thank you documented in this encounter Plan of Treatment Not on file documented as of this encounter Visit Diagnoses Not on filedocumented in this encounter Care Teams Service Learning Coordinator Relationship Specialty Start Date End Date Estela Barahona MD PCP - General 09/17/10 08/20/20 Rene Llamas DO PCP - General Internal Medicine 08/21/20 1 Estela Barahona MD PCP - General Internal Medicine 02/06/21 02/07/21 [facility], Pcp PCP - General Internal Medicine 02/08/21 06/07/21 Estela Barahona MD PCP - General Internal Medicine 06/08/21 08/08/21 Omar Peralta [address] [place] [address] PCP - General Internal Medicine 08/09/21 08/21/21 Estela Barahona MD [address] [place] [address] PCP - General Immigration Specialist 08/22/21 11/01/21 Omar Peralta [address] [place] [address] PCP - General Internal Medicine 11/02/21 documented as of this encounter
--- OUTSIDE RECORDS SUMMARY | 2024-11-24 08:23 | XMS_ITS | Encounter Summary ---
Author Organization [facility] Address [address] [place] [address] Care Team Providers Care Tire Mold Tester Name Role Phone Rene Llamas DO Primary Care Provider Estela Chang MD Primary Care Provider Unava iljacobo [facility], Pcp Primary Care Provider Estela Nunes MD Primary Care Provider Unava Omar Parkinosn Primary Care Provider [phone] Estela Barahona MD Primary Care Provider Unava Omar Parkinson Primary Care Provider [phone] Encounter Details Date Type Department Care Team Description 01/28/2021 Release of Information Medical Records [address] [place] [id number] [place] [address] Social History Tobacco Use Types Packs/Day Years [...] on filedocumented in this encounter Care Teams Tire Mold Tester Relationship Specialty Start Date End Date Rene Llamas DO PCP - General Internal Medicine 08/21/20 1 Estela Barahona MD PCP - General Internal Medicine 02/06/21 02/07/21 [facility] PCP - General Internal Medicine 02/08/21 06/07/21 Estela Barahona MD PCP - General Internal Medicine 06/08/21 08/08/21 Omar Peralta [address] [place] [address] PCP - General Internal Medicine 08/09/21 08/21/21 Estela Barahona MD [address] [place] [address] PCP - General Investment Executive 08/22/21 11/01/21 Omar Peralta [address] [place] [address] PCP - General Internal Medicine 11/02/21 documented as of this encounter
--- OUTSIDE RECORDS SUMMARY | 2024-11-24 08:23 | XMS_ITS | Encounter Summary ---
Author Organization [facility] Address [address] [place] [address] Care Team Providers Care Warble Saw Operator Name Role Phone Estela Barahona MD Primary Care Provider Unava ilable Rene Llamas DO Primary Care Provider Jen vailaEstela Burrell MD Primary Care Provider Unava ilable Rosemary Pcp Primary Care Provider UnavailEstela Gruber MD Primary Care Provider Unava ilable Omar Peralta Primary Care Provider [phone] Estela Barahona MD Primary Care Provider Unava ilable Omar Peralta Primary Care Provider [phone] Encounter Details Date Type Department Care Team Description 06/11/2019 Release of Information Medical Records [address] [place] [id number] Abstract, Provider Social History Tobacco Use Types [...] on filedocumented in this encounter Care Teams Warble Saw Operator Relationship Specialty Start Date End Date Estela Barahona MD PCP - General 09/17/10 08/20/20 Rene Llamas DO PCP - General Internal Medicine 08/21/20 1 Estela Barahona MD PCP - General Internal Medicine 02/06/21 02/07/21 [facility] PCP - General Internal Medicine 02/08/21 06/07/21 Estela Barahona MD PCP - General Internal Medicine 06/08/21 08/08/21 Omar Peralta [address] [place] [address] PCP - General Internal Medicine 08/09/21 08/21/21 Estela Barahona MD [address] [place] [address] PCP - General Manager Desktop 08/22/21 11/01/21 Omar Peralta [address] [place] [address] PCP - General Internal Medicine 11/02/21 documented as of this encounter
--- OUTSIDE RECORDS SUMMARY | 2024-11-24 08:23 | XMS_ITS | Encounter Summary ---
Author Organization [facility] Address [address] [place] [address] Phone Care Team Providers Care Food And Drug Inspector Name Role Phone Omar Peralta MD Primary Care Provider Reason for Referral * Consultation (Elective) - Closed Specialty Diagnoses / Procedures Referred By Contvinnie t Referred To Contact Endocrinology Omar Peralta MD [facility] [place] [address] Phone: tel: fax: [address] [address] Phone: tel: Referral ID Status Reason Start Date Expiration Date Visits Re quested Visits Authorized [id number] Closed 05/29/2022 05/30/2023 1 1 Encounter Details Date Type Department Care Team (Late st Contact Info) Description 05/29/2022 Transcribe Orders [facility] [address] [place] [address] Nick Valdez DO [address] [place] [address] [email or web address] Social History Tobacco Use Types Packs/Day Years Used Date Smoking Tobacco: Former Smokeless Tobacco: Never Alcohol Use Standard Drinks/Week Comments Not Currently 0 (1 standard drink = 0.6 oz pur e alcohol) Comments Unknown Sex and Gender Information Value Date Recorded Sex Assigned at Female 12/30/2018 9:45 AM EDT Legal Sex Female 4:36 PM EST Gender Identity Female 12/30/2018 9:45 AM EDT Sexual Orientation Not on file documented as of this encounter Plan of Treatment Upcoming Encounters Date Type Department Care Team ([facility] st Contact Info) Description 08/03/2025 8:30 AM EDT Office Visit [facility] [address] [place] [address] Nick Valdez DO [address] [place] [address] Scheduled Referrals Name Type Priority Associated Diagnoses Order Schedule Ambulatory referral to [facility] Endocrinology Outpatient Referral Routine Ordered: 05/29/2022 documented as of this encounter Visit Diagnoses Not on filedocumented in this encounter Care Teams Food And Drug Inspector Relationship Specialty Start Date End Date Omar Peralta MD [address] [place] [address] PCP - General Hospitalist 01/28/22 documented as of this encounter Additional Source Comments The information contained in this document represents components of the legal health record. It is not the complete legal health record.[facility]
--- OUTSIDE RECORDS SUMMARY | 2024-11-24 08:23 | XMS_ITS | Encounter Summary ---
Author Organization [facility] Address [address] [place] [address] Care Team Providers Care Political Consultant Name Role Phone [facility], Pcp Primary Care Provider Estela Nunes MD Primary Care Provider Unava Omar Parkinson Primary Care Provider [phone] Estela Barahona MD Primary Care Provider Omar Recinos Primary Care Provider [phone] Reason for Visit * Reason Onset Date Comments refill request 03/02/2021 Encounter Details Date Type Department Care Team Description 03/02/2021 Refill Pulmonology - [place] [address] [facility] [address] [place] [address] Aguilar Gao MD [address] [place] [address] refill request Social History Tobacco Use Types Packs/Day Years [...] have Coronavirus / COVID-19? No / Unsure 02/06/2021 8:41 AM EST documented as of this encounter Miscellaneous Notes * Telephone Encounter - Miroslava Panchal Familia - 03/02/2021 9:12 AM EST Patient would like script to be: E-PRESCRIBED/FAXED TO PHARMACY When was the patients last office visit in Adult Medicine?: 09/22/20 When was the last time the patient saw their PCP? Same as above Does patient have an upcoming appointment? Yes 06/08/21 (THE MEDICATION IS NOT ON THE MED LIST AND IS IDENTIFIED BELOW): {MED LIST:32175) Med name: Breo Ellipta?? Dosage: 200-25MCG/INH AERO POWDER # of tablets: Local pharmacy with request for 30 -day supply Instructions: Did you check the pharmacy information above?: YES Patients current insurance carrier: Payor: [employer] / Plan: PPO $10/$15 [id number] / Product Type: PPO [id number] documented in this encounter Plan of Treatment Not on file documented as of this encounter Visit Diagnoses Diagnosis Asthma-COPD overlap syndrome (HCC) documented in this encounter Care Teams Political Consultant Relationship Specialty Start Date End Date Community, Pcp PCP - General Internal Medicine 02/08/21 06/07/21 Estela Barahona MD PCP - General Internal Medicine 06/08/21 08/08/21 Omar Peralta [address] [place] [address] PCP - General Internal Medicine 08/09/21 08/21/21 Estela Barahona MD [address] [place] [address] PCP - General Automotive Shop Foreman 08/22/21 11/01/21 Omar Peralta [address] [place] [address] PCP - General Internal Medicine 11/02/21 documented as of this encounter
--- OUTSIDE RECORDS SUMMARY | 2024-11-24 08:23 | XMS_ITS | Encounter Summary ---
Author Organization [facility] Address [address] [place] [address] Care Team Providers Care Staff Cytotechnologist Name Role Phone Rene Llamas DO Primary Care Provider Estela Chang MD Primary Care Provider Unava ilable [facility], Pcp Primary Care Provider Estela Nunes MD Primary Care Provider Unava ilable Omar Peralta Primary Care Provider [phone] Estela Barahona MD Primary Care Provider Unava ilable Omar Peralta Primary Care Provider [phone] Encounter Details Date Type Department Care Team Description 09/28/2020 Pt. Non Urgent Medical Question Pulmonology - [place] 175 [facility] [address] [place] [address] Michael Laguna MD 175 [facility] [address] [address] [place] [address] Asthma-COPD overlap syndrome (HCC) (Primary Dx) Social History Tobacco Use Types [...] encounter Miscellaneous Notes * Telephone Encounter - Priya Velásquez M.A. - 09/28/2020 8:24 AM EDTFrom: Yolande Ayala To: Vito Laguna Sent: 09/28/2020 7:43 AM EDT Subject: Medical change Good morning , I saw DR Tierney on 09/22/20 for a follow up, he was supposed to send a new prescription with a dosage change for my breo inhaler but I don???t think he sent it to my pharmacy on file.Can you please check on this for me ? Also he was ordering a chest X-ray , was this ordered ? Thank you , Irene documented in this encounter Plan of Treatment Not on file documented as of this encounter Visit Diagnoses Diagnosis Asthma-COPD overlap syndrome (HCC)- Primary documented in this encounter Care Teams Staff Cytotechnologist Relationship Specialty Start Date End Date Rene Llamas DO PCP - General Internal Medicine 08/21/20 1 Estela Barahona MD PCP - General Internal Medicine 02/06/21 02/07/21 [facility] PCP - General Internal Medicine 02/08/21 06/07/21 Estela Barahona MD PCP - General Internal Medicine 06/08/21 08/08/21 Omar Peralta [address] [place] [address] PCP - General Internal Medicine 08/09/21 08/21/21 Estela Barahona MD [address] [place] [address] PCP - General Parts Classifier 08/22/21 11/01/21 Omar Peralta [address] [place] [address] PCP - General Internal Medicine 11/02/21 documented as of this encounter
--- OUTSIDE RECORDS SUMMARY | 2024-11-24 08:23 | XMS_ITS | Encounter Summary ---
Author Organization [facility] Address [address] [place] [address] Care Team Providers Care Stacker Name Role Phone Community, Pcp Primary Care Provider Estela Nunes MD Primary Care Provider UnaOmar Moy Primary Care Provider [phone] Estela Barahona MD Primary Care Provider Omar Recinos Primary Care Provider [phone] Reason for Visit * Reason Onset Date Comments TEST RESULTS 02/08/2021 Encounter Details Date Type Department Care Team Description 02/08/2021 Pt. Non Urgent Medic al Question Adult Medicine [address] [address] Estela Barahona MD Social History Tobacco Use [...] encounter Miscellaneous Notes * Telephone Encounter - Yolande Melo M.A. - 02/08/2021 1:18 PM ESTFrom: Yolande Ayala To: Jackie Barahona Sent: 02/08/2021 1:17 PM EST Subject: Results for heart monitor Hi there , I received a message in my chart pertaining to results for a 24 hr heart monitor that should have been sent to Estela Barahona at [facility] . Please forward results to her . Thank you documented in this encounter Plan of Treatment Not on file documented as of this encounter Visit Diagnoses Not on filedocumented in this encounter Care Teams Stacker Relationship Specialty Start Date End Date Community, Pcp PCP - General Internal Medicine 02/08/21 06/07/21 Estela Barahona MD PCP - General Internal Medicine 06/08/21 08/08/21 Omar Peralta [address] [place] [address] PCP - General Internal Medicine 08/09/21 08/21/21 Estela Barahona MD [address] [place] [address] PCP - General Buttonhole Machine Operator 08/22/21 11/01/21 Omar Peralta [address] [place] [address] PCP - General Internal Medicine 11/02/21 documented as of this encounter
--- OUTSIDE RECORDS SUMMARY | 2024-11-24 08:24 | XMS_ITS | Encounter Summary ---
Author Organization [facility] Address [address] [place] [address] Care Team Providers Care Director Of Property Management Name Role Phone Estela Barahona MD Primary Care Provider Unava ilable Rene Llamas DO Primary Care Provider Jen vailaEstela Burrell MD Primary Care Provider Unava ilable Rosemary Pcp Primary Care Provider Estela Nunes MD Primary Care Provider Unava ilable Omar Peralta Primary Care Provider [phone] Estela Barahona MD Primary Care Provider Unava ilable Omar Peralta Primary Care Provider [phone] Reason for Visit * Reason Onset Date Comments Testing 03/04/2019 Encounter Details Date Type Department Care Team Description 03/04/2019 Pt. Non Urgent Medic al Question Adult Medicine [address] [address] Estela Barahona MD Social History Tobacco Use [...] Telephone Encounter - Yolande Melo M.A. - 03/04/2019 10:01 AM ESTFrom: Yolande Ayala To: Estela Barahona MD Sent: 03/04/2019 10:00 AM EST Subject: Bone do Good morning DR. Barahona , I was just wondering if I have to do a bone density test this February due to the osteoporosis or is it next February ? Thank you, Irene documented in this encounter Plan of Treatment Not on file documented as of this encounter Visit Diagnoses Not on filedocumented in this encounter Care Teams Director Of Property Management Relationship Specialty Start Date End Date Estela Barahona MD PCP - General 09/17/10 08/20/20 Rene Llamas DO PCP - General Internal Medicine 08/21/20 1 Estela Barahona MD PCP - General Internal Medicine 02/06/21 02/07/21 [facility] PCP - General Internal Medicine 02/08/21 06/07/21 Estela Barahona MD PCP - General Internal Medicine 06/08/21 08/08/21 Omar Peralta [address] [place] [address] PCP - General Internal Medicine 08/09/21 08/21/21 Estela Barahona MD [address] [place] [address] PCP - General Lathe Sander 08/22/21 11/01/21 [place] [address] PCP - General Internal Medicine 11/02/21 documented as of this encounter
--- OUTSIDE RECORDS SUMMARY | 2024-11-24 08:24 | XMS_ITS | Encounter Summary ---
Author Organization [facility] Address [address] [place] [address] Care Team Providers Care Gin Inspector Name Role Phone Estela Barahona MD Primary Care Provider Unava ilable Rene Llamas DO Primary Care Provider Jen vailaEstela Burrell MD Primary Care Provider Unava ilable Rosemary Pcp Primary Care Provider UnavailEstela Gruber MD Primary Care Provider Unava ilable Omar Peralta Primary Care Provider [phone] Estela Barahona MD Primary Care Provider Unava ilable Omar Peralta Primary Care Provider [phone] Reason for Visit * Reason Comments E-prescribe Rx Request Encounter Details Date Type Department Care Team Description 07/24/2015 Refill Adult Medicine [address] [address] Ju Rivera PA-C [address] [place] [address] [id number] E-prescribe Rx Request Social History Tobacco Use [...] encounter Miscellaneous Notes * Telephone Encounter - Flakita Giang M.A. - 07/24/2015 3:31 PM EDT Would you like to refill this? * Telephone Encounter - Colin Glass - 07/24/2015 11:45 AM EDT Patient would like script to be: E-PRESCRIBED/FAXED TO PHARMACY WHEN WAS THE PATIENT'S LAST APPOINTMENT IN ADULT MEDICINE? 07/22/15 WHEN WAS THE LAST TIME THE PATIENT SAW THEIR PCP? 05/06/15 Does patient have an upcoming appointment? Will call to book (THE MEDICATION REQUESTED IS ON THE MED LIST ABOVE) All of the medications requested were on the CURRENT MEDS list Did you check the Pharmacy information above?: YES Patient wants: 30 -day supply Is this a mail order prescription request ? NO Patients current insurance carrier is: Payor: [employer] / Plan: PPO $15 [id number] / ProductType: PPO [id number] documented in this encounter Plan of Treatment Not on file documented as of this encounter Visit Diagnoses Not on filedocumented in this encounter Care Teams Gin Inspector Relationship Specialty Start Date End Date Estela Barahona MD PCP - General 09/17/10 08/20/20 Rene Llamas DO PCP - General Internal Medicine 08/21/20 1 Estela Barahona MD PCP - General Internal Medicine 02/06/21 02/07/21 [facility] PCP - General Internal Medicine 02/08/21 06/07/21 Estela Barahona MD PCP - General Internal Medicine 06/08/21 08/08/21 Omar Peralta [address] [place] [address] PCP - General Internal Medicine 08/09/21 08/21/21 Estela Barahona MD [address] [place] [address] PCP - General It Manager 08/22/21 11/01/21 [place] [address] PCP - General Internal Medicine 11/02/21 documented as of this encounter
--- OUTSIDE RECORDS SUMMARY | 2024-11-24 08:24 | XMS_ITS | Encounter Summary ---
Author Organization [facility] Address [address] [place] [address] Care Team Providers Care Spar Finisher Name Role Phone Estela Barahona MD Primary Care Provider Unava ilable Rene Llamas DO Primary Care Provider Jen vailaEstela Burrell MD Primary Care Provider Unava ilable Rosemary Pcp Primary Care Provider UnavailEstela Gruber MD Primary Care Provider Unava ilable Omar Peralta Primary Care Provider [phone] Estela Barahona MD Primary Care Provider Unava ilable Omar Peralta Primary Care Provider [phone] Encounter Details Date Type Department Care Team Description 01/26/2019 [facility] Medical Records [address] [place] [address] Abstract, Provider Social History Tobacco Use Types [...] on filedocumented in this encounter Care Teams Spar Finisher Relationship Specialty Start Date End Date Estela Barahona MD PCP - General 09/17/10 08/20/20 Rene Llamas DO PCP - General Internal Medicine 08/21/20 1 Estela Barahona MD PCP - General Internal Medicine 02/06/21 02/07/21 [facility], [facility] PCP - General Internal Medicine 02/08/21 06/07/21 Estela Barahona MD PCP - General Internal Medicine 06/08/21 08/08/21 Omar Peralta [address] [place] [address] PCP - General Internal Medicine 08/09/21 08/21/21 Estela Barahona MD [address] [place] [address] PCP - General Slitter Service And Setter 08/22/21 11/01/21 Omar Peralta [address] [place] [address] PCP - General Internal Medicine 11/02/21 documented as of this encounter
--- OUTSIDE RECORDS SUMMARY | 2024-11-24 08:24 | XMS_ITS | Encounter Summary ---
Author Organization [facility] Address [address] [place] [address] Care Team Providers Care Promotions Firm Accounts Manager Name Role Phone Estela Barahona MD Primary Care Provider Unava ilable Rene Llamas DO Primary Care Provider Jen vailaEstela Burrell MD Primary Care Provider Unava ilable Rosemary Pcp Primary Care Provider UnavailEstela Gruber MD Primary Care Provider Unava ilable Omar Peralta Primary Care Provider [phone] Estela Barahona MD Primary Care Provider Unava ilable Omar Peralta Primary Care Provider [phone] Encounter Details Date Type Department Care Team Description 01/26/2019 [facility] Medical Records [address] [place] [address] [employer], MICK Social History Tobacco Use Types Packs/Day Years [...] on filedocumented in this encounter Care Teams Promotions Firm Accounts Manager Relationship Specialty Start Date End Date Estela Barahona MD PCP - General 09/17/10 08/20/20 Rene Llamas DO PCP - General Internal Medicine 08/21/20 1 Estela Barahona MD PCP - General Internal Medicine 02/06/21 02/07/21 [facility] PCP - General Internal Medicine 02/08/21 06/07/21 Estela Barahona MD PCP - General Internal Medicine 06/08/21 08/08/21 Omar Peralta [address] [place] [address] PCP - General Internal Medicine 08/09/21 08/21/21 Estela Barahona MD [address] [place] [address] PCP - General Service Trainer 08/22/21 11/01/21 Omar Peralta [address] [place] [address] PCP - General Internal Medicine 11/02/21 documented as of this encounter
--- OUTSIDE RECORDS SUMMARY | 2024-11-24 08:25 | XMS_ITS | Encounter Summary ---
Author Organization [facility] Address [address] [place] [address] Care Team Providers Care Reciprocating Drill Operator Name Role Phone Estela Barahnoa MD Primary Care Provider Unava ilable Rene Llamas DO Primary Care Provider Jen vailaEstela Burrell MD Primary Care Provider Unava ilable Rosemary Pcp Primary Care Provider UnavailEstela Gruber MD Primary Care Provider Unava ilable Omar Peralta Primary Care Provider [phone] Estela Barahona MD Primary Care Provider Unava ilable Omar Peralta Primary Care Provider [phone] Encounter Details Date Type Department Care Team Description 11/11/2016 [facility] Machine Operator Report Medical Records [address] [place] [address] Alexandrea Burns MD Social History Tobacco Use [...] on filedocumented in this encounter Care Teams Reciprocating Drill Operator Relationship Specialty Start Date End Date Estela Barahona MD PCP - General 09/17/10 08/20/20 Rene Llamas DO PCP - General Internal Medicine 08/21/20 1 Estela Barahona MD PCP - General Internal Medicine 02/06/21 02/07/21 [facility] PCP - General Internal Medicine 02/08/21 06/07/21 Estela Barahona MD PCP - General Internal Medicine 06/08/21 08/08/21 Omar Peralta [address] [place] [address] PCP - General Internal Medicine 08/09/21 08/21/21 Estela Barahona MD [address] [place] [address] PCP - General Floor Scraper 08/22/21 11/01/21 Omar Peralta [address] [place] [address] PCP - General Internal Medicine 11/02/21 documented as of this encounter
--- OUTSIDE RECORDS SUMMARY | 2024-11-24 08:25 | XMS_ITS | Encounter Summary ---
Author Organization [facility] Address [address] [place] [address] Care Team Providers Care Vamp Wetter Name Role Phone Estela Barahona MD Primary Care Provider Unava ilable Rene Llamas DO Primary Care Provider Jen vailaEstela Burrell MD Primary Care Provider Unava ilable Rosemary Pcp Primary Care Provider UnavailEstela Gruber MD Primary Care Provider Unava ilable Omar Peralta Primary Care Provider [phone] Estela Barahona MD Primary Care Provider Unava ilable Omar Peralta Primary Care Provider [phone] Reason for Visit * Reason Onset Date Comments Testing 11/21/2016 Encounter Details Date Type Department Care Team Description 11/21/2016 Pt. Non Urgent Medical Question Adult Medicine [address] [address] Estela Barahona MD Osteopenia (Primary Dx) Social History Tobacco Use Types [...] as of this encounter Progress Notes * Mame VillalobosP.N. - 11/21/2016 9:01 AM EDTFrom: Yolande Ayala To: Estela Barahona MD Sent: 11/21/2016 6:49 AM EDT Subject: Bone density test Good morning Dr Barahona , I'm due for a bone density scan in November , would you please put an order in so I can schedule it ? Thank You , Yolande Ayala documented in this encounter Plan of Treatment Not on file documented as of this encounter Results * DXA BONE DENSITY STUDY 1+ SITS AXIAL SKEL (01/30/2017 6:19 PM EDT) 01/31/2017 10:0 2 AM EDT Impressions [place] OTHER EXTERNAL - 01/31/2017 10:03 AM EDT Osteoporosis by WHO criteria. The World Health Organization Fracture Risk Assessment is not calculated due to some T score at or below -2.5. The [facility] Department of Internal Medicine recommends using National [...] alternative screening schedule based on ashutosh Maldonado., [facility] April 18, 2011 for patients with osteopenia (based on hip BMD T-score) is as follows: * advanced osteopenia (T scores -2.00 to -2.49), BMD testing every year * moderate osteopenia (T scores -1.50 to -1.99), BMD testing every 5 years mild osteopenia or normal BMD (T scores -1.50 and higher), BMD testing every 15 years Narrative SRINATH MONTES DE OCA OTHER EXTERNAL - 01/31/2017 10:03 AM EDT DEXA SCAN: Lumbar Spine T-score is -2.7. (SD relative to 20-29 y/o adult) Z-score is -1.6. (SD relative to age matched peers) This is considered osteoporosis by WHO criteria. Left Femoral Neck T-score is -1.5. Z-score is -0.5. This is considered osteopenia by WHO criteria. Comparison exam(s): Compared to 12/22/2014, no measurable difference in bone density at the left hip. A statistically significant, 3.5% decrease in bone density as measured throughout the lumbar spine compared to 12/22/2014. Procedure Note Desi Matthews DO - 01/31/2017 DEXA SCAN: Lumbar Spine T-score is -2.7. (SD relative to 20-29 y/o adult) Z-score is -1.6. (SD relative to age matched peers) This is considered osteoporosis by WHO criteria. Left Femoral Neck T-score is -1.5. Z-score is -0.5. This is considered osteopenia by WHO criteria. Comparison exam(s): Compared to 12/22/2014, no measurable difference inbone density at the left hip. A statistically significant, 3.5% decrease in bone density asmeasured throughout the lumbar spine compared to 12/22/2014. IMPRESSION Osteoporosis by WHO criteria. The World Health Organization Fracture Risk Assessment is not calculated due to some T score at or below -2.5. The [facility] Department of Internal Medicine recommendsusing National Osteoporosis [...] alternative screening schedule based [facility] ash[facility]osh Maldonado., [facility] for patients with osteopenia (based on hip BMD T-score) is as follows: * advanced osteopenia (T scores -2.00 to -2.49), BMD testing every year * moderate osteopenia (T scores -1.50 to -1.99), BMD testing every 5years mild osteopenia or normal BMD (T scores -1.50 and higher), BMD testingevery 15 years Estela Barahona MD DEXA [place] OTHER EXTERNAL documented in this encounter Visit Diagnoses Diagnosis Osteopenia- Primary Disorder of bone and cartilage, unspecified Osteopenia Disorder of bone and cartilage, unspecified documented in this encounter Care Teams Vamp Wetter Relationship Specialty Start Date End Date Estela Barahona MD PCP - General 09/17/10 08/20/20 Rene Llamas DO PCP - General Internal Medicine 08/21/20 1 Estela Barahona MD PCP - General Internal Medicine 02/06/21 02/07/21 [facility] PCP - General Internal Medicine 02/08/21 06/07/21 Estela Barahona MD PCP - General Internal Medicine 06/08/21 08/08/21 Omar Peralta [address] [place] [address] PCP - General Internal Medicine 08/09/21 08/21/21 Estela Barahona MD [address] [place] [address] PCP - General Job Recruiter 08/22/21 11/01/21 [place] [address] PCP - General Internal Medicine 11/02/21 documented as of this encounter
--- OUTSIDE RECORDS SUMMARY | 2024-11-24 08:25 | XMS_ITS | Encounter Summary ---
Author Organization [facility] Address [address] [place] [address] Care Team Providers Care Contour Stitcher Name Role Phone Estela Barahona MD Primary Care Provider Unava ilable Rene Llamas DO Primary Care Provider Jen vailable Estela Barahona MD Primary Care Provider Unava ilable Rosemary Pcp Primary Care Provider UnavailEstela Gruber MD Primary Care Provider Unava ilable Omar Peralta Primary Care Provider [phone] Estela Barahona MD Primary Care Provider Unava ilable Omar Peralta Primary Care Provider [phone] Encounter Details Date Type Department Care Team Description 09/22/2019 Pt. Non Urgent Medic al Question Adult Urgent Care - [address] [address] Estela Barahona MD Social History Tobacco Use [...] on filedocumented in this encounter Care Teams Contour Stitcher Relationship Specialty Start Date End Date Estela Barahona MD PCP - General 09/17/10 08/20/20 Rene Llamas DO PCP - General Internal Medicine 08/21/20 1 Estela Barahona MD PCP - General Internal Medicine 02/06/21 02/07/21 [facility] PCP - General Internal Medicine 02/08/21 06/07/21 Estela Barahona MD PCP - General Internal Medicine 06/08/21 08/08/21 Omar Peralta [address] [place] [address] PCP - General Internal Medicine 08/09/21 08/21/21 Estela Barahona MD [address] [place] [address] PCP - General Full Service Vending Driver 08/22/21 11/01/21 Omar Peralta [address] [place] [address] PCP - General Internal Medicine 11/02/21 documented as of this encounter
--- OUTSIDE RECORDS SUMMARY | 2024-11-24 08:25 | XMS_ITS | Encounter Summary ---
Author Organization [facility] Address [address] [place] [address] Care Team Providers Care Maxillofacial Prosthetics Dentist Name Role Phone Estela Barahona MD Primary Care Provider Unava ilable Rene Llamas DO Primary Care Provider Jen vailable Estela Barahona MD Primary Care Provider Unava ilable Rosemary Pcp Primary Care Provider UnavailEstela Gruber MD Primary Care Provider Unava ilable Omar Peralta Primary Care Provider [phone] Estela Barahona MD Primary Care Provider Unava ilable Omar Peralta Primary Care Provider [phone] Encounter Details Date Type Department Care Team Description 02/03/2015 Refill Adult Medicine [address] [address] Estela Barahona MD Social History Tobacco Use [...] as of this encounter Visit Diagnoses Diagnosis Gastroesophageal reflux disease without esophagitis- Primary Esophageal reflux documented in this encounter Care Teams Maxillofacial Prosthetics Dentist Relationship Specialty Start Date End Date Estela Barahona MD PCP - General 09/17/10 08/20/20 Rene Llamas DO PCP - General Internal Medicine 08/21/20 1 Estela Barahona MD PCP - General Internal Medicine 02/06/21 02/07/21 [facility] [place] - [place] Internal Medicine 02/08/21 06/07/21 Estela Barahona MD PCP - General Internal Medicine 06/08/21 08/08/21 Omar Peralta [address] [place] [address] PCP - General Internal Medicine 08/09/21 08/21/21 Estela Barahona MD [address] [place] [address] PCP - General Toggle Press Folder And Feeder 08/22/21 11/01/21 Omar Peralta [address] [place] [address] PCP - General Internal Medicine 11/02/21 documented as of this encounter
--- OUTSIDE RECORDS SUMMARY | 2024-11-24 08:25 | XMS_ITS | Encounter Summary ---
Author Organization [facility] Address [address] [place] [address] Care Team Providers Care Communications Operator Name Role Phone Estela Barahona MD Primary Care Provider Unava ilable Rene Llamas DO Primary Care Provider Jen vailaEstela Burrell MD Primary Care Provider Unava ilable Rosemary Pcp Primary Care Provider UnavailEstela Gruber MD Primary Care Provider Unava ilable Omar Peralta Primary Care Provider Estela Barahona MD Primary Care Provider Unava ilable Omar Peralta Primary Care Provider [phone] Reason for Referral * EXTERNAL (Routine) - Authorized/Booked Specialty Diagnoses / Procedures Referred By Contact Referred To Contact Otolaryngology / Hearing Procedures REFERRAL TO HEARING TEST Estela Barahona MD [address] [place] [address] [address] Referral ID Status Reason Start Date Expiration Date V isits Requested Visits Authorized [id number] Authorized/B ooked 05/22/2020 08/29/2020 1 1 Reason for Visit * Reason Onset Date Comments Retail Link Analyst Feedback 05/19/2020 Jose Clark g Encounter Details Date Type Department Care Team Description 05/19/2020 Telephone Radiology - [place] [id number] [place] [address] Estela Barahona MD Retail Link Analyst Feedback ([facility]) Social History Tobacco Use Types Packs/Day Years [...] have Coronavirus / COVID-19? No / Unsure 05/09/2020 8:49 AM EST documented as of this encounter Miscellaneous Notes * Telephone Encounter - Estela Barahona MD - 05/22/2020 11:08 AM EST Referral placed * Telephone Encounter - Annelise Myers - 05/19/2020 2:[address] Estela Barahona You request a referral to Audiology for a hearing test . Reason for referral: hearing loss Priority: Routine - schedule for next available appointment; Priority - visit within 4-6 weeks; Urgent - visit within a week; Emergency - visit today or tomorrow. Payor: Not third-alliance party related Refer Patient does not want to go to [facility] per patient request. [place] pend new order Thank You, Nicolle Referrals Department documented in this encounter Plan of Treatment Not on file documented as of this encounter Visit Diagnoses Not on filedocumented in this encounter Care Teams Communications Operator Relationship Specialty Start Date End Date Estela Barahona MD PCP - General 09/17/10 08/20/20 Rene Llamas DO PCP - General Internal Medicine 08/21/20 1 Estela Barahona MD PCP - General Internal Medicine 02/06/21 02/07/21 [facility] PCP - General Internal Medicine 02/08/21 06/07/21 Estela Barahona MD PCP - General Internal Medicine 06/08/21 08/08/21 Omar Peralta [address] [place] [address] PCP - General Internal Medicine 08/09/21 08/21/21 Estela Barahona MD [address] [place] [address] PCP - General Dip Dyer 08/22/21 11/01/21 Omar Peralta [address] [place] [address] PCP - General Internal Medicine 11/02/21 documented as of this encounter
--- OUTSIDE RECORDS SUMMARY | 2024-11-24 08:25 | XMS_ITS | Encounter Summary ---
Author Organization [facility] Address [address] [place] [address] Care Team Providers Care Recyclable Materials Distributor Name Role Phone Estela Barahona MD Primary Care Provider Unava ilable Rene Llamas DO Primary Care Provider Jen vailaEstela Burrell MD Primary Care Provider Unava ilable Rosemary Pcp Primary Care Provider UnavailEstela Gruber MD Primary Care Provider Unava ilable Omar Peralta Primary Care Provider [phone] Estela Barahona MD Primary Care Provider Unava ilable Omar Peralta Primary Care Provider [phone] Encounter Details Date Type Department Care Team Description 09/26/2015 Echo Technician Report Medical Records [address] [place] [address] Kaushal Garduno MD Social History Tobacco Use Types Packs/Day [...] on filedocumented in this encounter Care Teams Recyclable Materials Distributor Relationship Specialty Start Date End Date Estela Barahona MD PCP - General 09/17/10 08/20/20 Rene Llamas DO PCP - General Internal Medicine 08/21/20 1 Estela Barahona MD PCP - General Internal Medicine 02/06/21 02/07/21 [facility] [place] PCP - General Internal Medicine 02/08/21 06/07/21 Estela Barahona MD PCP - General Internal Medicine 06/08/21 08/08/21 Omar Peralta [address] [place] [address] PCP - General Internal Medicine 08/09/21 08/21/21 Estela Barahona MD [address] [place] [address] PCP - General Tungsten Tender 08/22/21 11/01/21 Omar Peralta [address] [place] [address] PCP - General Internal Medicine 11/02/21 documented as of this encounter
--- OUTSIDE RECORDS SUMMARY | 2024-11-24 08:25 | XMS_ITS | Encounter Summary ---
Author Organization [facility] Address [address] [place] [address] Care Team Providers Care Forepart Reducer Name Role Phone Estela Barahona MD Primary Care Provider Unava ilable Rene Llamas DO Primary Care Provider Jen vailaEstela Burrell MD Primary Care Provider Unava ilable Rosemary Pcp Primary Care Provider UnavailEstela Gruber MD Primary Care Provider Unava ilable Omar Peralta Primary Care Provider [phone] Estela Barahona MD Primary Care Provider Unava ilable Omar Peralta Primary Care Provider [phone] Reason for Visit * Reason Onset Date Comments TEST RESULTS 09/22/2019 Hemoglobin A1C =5.6 Encounter Details Date Type Department Care Team Description 09/22/2019 Pt. Non Urgent Medic al Question Adult Urgent Care - [address] [address] Estela Barahona MD Social History Tobacco Use [...] Telephone Encounter - Yolande Melo M.A. - 09/22/2019 9:04 AM EDTFrom: Yolande Ayala To: Estela Barahona MD Sent: 09/22/2019 8:26 AM EDT Subject: A1C hi DR Barahona , I did my blood work for A1C on Sunday 09/17 and just checking to see if the results were back yet. Thank you documented in this encounter Plan of Treatment Not on file documented as of this encounter Visit Diagnoses Not on filedocumented in this encounter Care Teams Forepart Reducer Relationship Specialty Start Date End Date Estela Barahona MD PCP - General 09/17/10 08/20/20 Rene Llamas DO PCP - General Internal Medicine 08/21/20 1 Estela Barahona MD PCP - General Internal Medicine 02/06/21 02/07/21 [facility] PCP - General Internal Medicine 02/08/21 06/07/21 Estela Barahona MD PCP - General Internal Medicine 06/08/21 08/08/21 Omar Peralta [address] [place] [address] PCP - General Internal Medicine 08/09/21 08/21/21 Estela Barahona MD [address] [place] [address] PCP - General Track Repairer Helper 08/22/21 11/01/21 Omar Peralta [address] [place] [address] PCP - General Internal Medicine 11/02/21 documented as of this encounter
--- OUTSIDE RECORDS SUMMARY | 2024-11-24 08:25 | XMS_ITS | Encounter Summary ---
Author Organization [facility] Address [address] [place] [address] Care Team Providers Care Cryolite Recovery Operator Name Role Phone Estela Barahona MD Primary Care Provider Unava ilable Rene Llamas DO Primary Care Provider Jen vailable Estela Barahona MD Primary Care Provider Unava ilable Rosemary, Pcp Primary Care Provider UnavailEstela Gruber MD Primary Care Provider Unava ilable Omar Peralta Primary Care Provider [phone] Estela Barahona MD Primary Care Provider Unava ilable Omar Peralta Primary Care Provider [phone] Reason for Visit * Reason Onset Date Comments TEST RESULTS 04/18/2020 labs done 1 Encounter Details Date Type Department Care Team Description 04/18/2020 Pt. Non Urgent Medic al Question Adult Medicine [address] [address] Estela Barahona MD Social History Tobacco Use [...] have Coronavirus / COVID-19? No / Unsure 04/14/2020 8:49 AM EST documented as of this encounter Miscellaneous Notes * Telephone Encounter - Yolande Melo M.A. - 04/18/2020 9:06 AM ESTFrom: Yolande Ayala To: Estela Barahona MD Sent: 04/18/2020 8:38 AM EST Subject: Blood work Good morning DR. Barahona, as you can see , I did my blood work. I told them at the lab I just wanted my thyroid blood work done , but I was told that there would be a message from the provider in the order if it was something that needed to wait , and she said there was no message so it looked like everything ordered was due. But , I knew what you told me about the tests that needed to be done aweek before injection , but they obviously didn't listen. I'll have to repeat them again when needed. Thank you Irene documented in this encounter Plan of Treatment Not on file documented as of this encounter Visit Diagnoses Not on filedocumented in this encounter Care Teams Cryolite Recovery Operator Relationship Specialty Start Date End Date Estela Barahona MD PCP - General 09/17/10 08/20/20 Rene Llamas DO PCP - General Internal Medicine 08/21/20 1 Estela Barahona MD PCP - General Internal Medicine 02/06/21 02/07/21 [facility] PCP - General Internal Medicine 02/08/21 06/07/21 Estela Barahona MD PCP - General Internal Medicine 06/08/21 08/08/21 Omar Peralta [address] [place] [address] PCP - General Internal Medicine 08/09/21 08/21/21 Estela Barahona MD [address] [place] [address] PCP - General Clinical Research Spec 08/22/21 11/01/21 Omar Peralta [address] [place] [address] PCP - General Internal Medicine 11/02/21 documented as of this encounter
--- OUTSIDE RECORDS SUMMARY | 2024-11-24 08:25 | XMS_ITS | Encounter Summary ---
Author Organization [facility] Address [address] [place] [address] Care Team Providers Care Solvent Station Attendant Name Role Phone Estela Barahona MD Primary Care Provider Unava ilable Rene Llamas DO Primary Care Provider Jen vailable Estela Barahona MD Primary Care Provider Unava ilable Rosemary Pcp Primary Care Provider UnavailEstela Gruber MD Primary Care Provider Unava ilable Omar Peralta Primary Care Provider [phone] Estela Barahona MD Primary Care Provider Unava ilable Omar Peralta Primary Care Provider [phone] Encounter Details Date Type Department Care Team Description 10/08/2019 Pt. Non Urgent Medic al Question Adult Urgent Care - [address] [address] Estela Barahona MD Social History Tobacco Use [...] on filedocumented in this encounter Care Teams Solvent Station Attendant Relationship Specialty Start Date End Date Estela Barahona MD PCP - General 09/17/10 08/20/20 Rene Llamas DO PCP - General Internal Medicine 08/21/20 1 Estela Barahona MD PCP - General Internal Medicine 02/06/21 02/07/21 [facility] [place] PCP - General Internal Medicine 02/08/21 06/07/21 Estela Barahona MD PCP - General Internal Medicine 06/08/21 08/08/21 Omar Peralta [address] [place] [address] PCP - General Internal Medicine 08/09/21 08/21/21 Estela Barahona MD [address] [place] [address] PCP - General Collections Manager 08/22/21 11/01/21 Omar Peralta [address] [place] [address] PCP - General Internal Medicine 11/02/21 documented as of this encounter
--- OUTSIDE RECORDS SUMMARY | 2024-11-24 08:25 | XMS_ITS | Encounter Summary ---
Author Organization [facility] Address [address] [place] [address] Care Team Providers Care Adjuster Piano Action Name Role Phone Estela Barahona MD Primary Care Provider Unava ilable Rene Llamas DO Primary Care Provider Jen vailable Estela Barahona MD Primary Care Provider Unava ilable Rosemary Pcp Primary Care Provider UnavailEstela Gruber MD Primary Care Provider Unava ilable Omar Peralta Primary Care Provider [phone] Estela Barahona MD Primary Care Provider Unava ilable Omar Peralta Primary Care Provider [phone] Encounter Details Date Type Department Care Team Description 11/10/2019 Pt. Non Urgent Medic al Question Adult Urgent Care - [address] [address] Estela Barahona MD Social History Tobacco Use [...] encounter Miscellaneous Notes * Telephone Encounter - Janee Perez M.A. - 11/10/2019 1:18 PM EDTFrom: Yolande Ayala To: Estela Barahona MD Sent: 11/10/2019 9:52 AM EDT Subject: Hot flashes vs thyroid Good morning DR Barahona . I have been having hot flashes for yrs now , but the last few months I have been having episodes of just pure sweating , where my clothes are wet. Terrible night sweats also. I swear even in air conditioning. I'm wondering if this could be a thyroid issue and not menopause . Thank you, Irene documented in this encounter Plan of Treatment Not on file documented as of this encounter Visit Diagnoses Not on filedocumented in this encounter Care Teams Adjuster Piano Action Relationship Specialty Start Date End Date Estela Barahona MD PCP - General 09/17/10 08/20/20 Rene Llamas DO PCP - General Internal Medicine 08/21/20 1 Estela Barahona MD PCP - General Internal Medicine 02/06/21 02/07/21 [facility] PCP - General Internal Medicine 02/08/21 06/07/21 Estela Barahona MD PCP - General Internal Medicine 06/08/21 08/08/21 Omar Peralta [address] [place] [address] PCP - General Internal Medicine 08/09/21 08/21/21 Estela Barahona MD [address] [place] [address] PCP - General Desk Pens Assembler 08/22/21 11/01/21 Omar Peralta [address] [place] [address] PCP - General Internal Medicine 11/02/21 documented as of this encounter
--- OUTSIDE RECORDS SUMMARY | 2024-11-24 08:25 | XMS_ITS | Encounter Summary ---
Author Organization [facility] Address [address] [place] [address] Care Team Providers Care Tricot Knitter Name Role Phone Estela Barahona MD Primary Care Provider Unava ilable Rene Llamas DO Primary Care Provider Jen vailaEstela Burrell MD Primary Care Provider Unava ilable Rosemary Pcp Primary Care Provider UnavailEstela Gruber MD Primary Care Provider Unava ilable Omar Peralta Primary Care Provider [phone] Estela Barahona MD Primary Care Provider Unava ilable Omar Peralta Primary Care Provider [phone] Encounter Details Date Type Department Care Team Description 11/16/2019 Power Transformer Inspector Report Medical Records [address] [place] [address] Alexandrea Burns MD Social History Tobacco Use [...] on filedocumented in this encounter Care Teams Tricot Knitter Relationship Specialty Start Date End Date Estela Barahona MD PCP - General 09/17/10 08/20/20 Rene Llamas DO PCP - General Internal Medicine 08/21/20 1 Estela Barahona MD PCP - General Internal Medicine 02/06/21 02/07/[place] [facility] [place] - [place] Internal [place] 02/08/21 06/07/21 Estela Barahona MD PCP - General Internal Medicine 06/08/21 08/08/21 Omar Peralta [address] [place] [address] PCP - General Internal Medicine 08/09/21 08/21/21 Estela Barahona MD [address] [place] [address] PCP - General Kiln Maintenance 08/22/21 11/01/21 Omar Peralta [address] [place] [address] PCP - General Internal Medicine 11/02/21 documented as of this encounter
--- OUTSIDE RECORDS SUMMARY | 2024-11-24 08:25 | XMS_ITS | Encounter Summary ---
Author Organization [facility] Address [address] [place] [address] Care Team Providers Care Publishing Specialist Name Role Phone Estela Barahona MD Primary Care Provider Unava ilable Rene Llamas DO Primary Care Provider Jen vaEstela Brown MD Primary Care Provider Unava ilable Rosemary Pcp Primary Care Provider UnavailEstela Gruber MD Primary Care Provider Unava ilable Omar Peralta Primary Care Provider [phone] Estela Barahona MD Primary Care Provider Unava ilable Omar Peralta Primary Care Provider [phone] Encounter Details Date Type Department Care Team Description 03/15/2015 Soap Press Feeder Report Medical Records [address] [place] [id number] Karen Elizabeth Social History Tobacco Use Types [...] on filedocumented in this encounter Care Teams Publishing Specialist Relationship Specialty Start Date End Date Estela Barahona MD PCP - General 09/17/10 08/20/20 Rene Llamas DO PCP - General Internal Medicine 08/21/20 1 Estela Barahona MD PCP - General Internal Medicine 02/06/21 02/07/21 [facility] PCP - General Internal Medicine 02/08/21 06/07/21 Estela Barahona MD PCP - General Internal Medicine 06/08/21 08/08/21 Omar Peralta [address] [place] [address] PCP - General Internal Medicine 08/09/21 08/21/21 Estela Barahona MD [address] [place] [address] PCP - General Director Of Religious Life 08/22/21 11/01/21 Omar Peralta [address] [place] [address] PCP - General Internal Medicine 11/02/21 documented as of this encounter
--- OUTSIDE RECORDS SUMMARY | 2024-11-24 08:26 | XMS_ITS | Encounter Summary ---
Author Organization [facility] Address [address] [place] [address] Care Team Providers Care Commercial Front Load Operator Name Role Phone Estela Barahona MD Primary Care Provider Unava ilable Rene Llamas DO Primary Care Provider Jen vailaEstela Burrell MD Primary Care Provider Unava ilable Rosemary Pcp Primary Care Provider UnavailEstela Gruber MD Primary Care Provider Unava ilable Omar Peralta Primary Care Provider [phone] Estela Barahona MD Primary Care Provider Unava ilable Omar Peralta Primary Care Provider [phone] Reason for Visit * Reason Onset Date Comments refill request 07/07/2020 Encounter Details Date Type Department Care Team Description 07/07/2020 Refill Pulmonology - [place] [address] [facility] [address] [place] [phone] Michael Laguna MD [address] [phone] refill request Social History Tobacco Use [...] have Coronavirus / COVID-19? No / Unsure 07/07/2020 11:02 AM EDT documented as of this encounter Miscellaneous Notes * Telephone Encounter - Kati Galvan - 07/07/2020 9:20 AM EDT Patient would like script to be: E-PRESCRIBED/FAXED TO PHARMACY WHEN WAS THE PATIENT'S LAST APPOINTMENT WITH THE PRESCRIBING PROVIDER? 12/09/20 Does patient have an upcoming appointment? Yes 07/07/20 (THE MEDICATION REQUESTED IS ON THE MED LIST ABOVE) All of the medications requested were on the CURRENT MEDS list Did you check the Pharmacy information above?: YES Patient wants: 30 -day supply Is this a mail order prescription request ? NO Patients current insurance carrier is: Payor: [employer] / Plan: PPO $10/$15 [id number] / Product Type: PPO [id number] documented in this encounter Plan of Treatment Not on file documented as of this encounter Visit Diagnoses Not on filedocumented in this encounter Care Teams Commercial Front Load Operator Relationship Specialty Start Date End Date Estela Barahona MD PCP - General 09/17/10 08/20/20 Rene Llamas DO PCP - General Internal Medicine 08/21/20 Estela Barahona MD PCP - General Internal Medicine 02/06/21 02/07/21 [facility] PCP - General Internal Medicine 02/08/21 06/07/21 Estela Barahona MD PCP - General Internal Medicine 06/08/21 08/08/21 Omar Peralta [address] [place] [address] PCP - General Internal Medicine 08/09/21 08/21/21 Estela Barahona MD [address] [place] [address] PCP - General Contract Clerk Automobile 08/22/21 11/01/21 Omar Peralta [address] [place] [address] PCP - General Internal Medicine 11/02/21 documented as of this encounter
--- OUTSIDE RECORDS SUMMARY | 2024-11-24 08:26 | XMS_ITS | Encounter Summary ---
Author Organization [facility] Address [address] [place] [address] Care Team Providers Care Family Service Assistant Name Role Phone Estela Barahona MD Primary Care Provider Unava ilable Rene Llamas DO Primary Care Provider Jen vailable Estela Barahona MD Primary Care Provider Unava ilable Rosemary Pcp Primary Care Provider UnavailEstela Gruber MD Primary Care Provider Unava ilable Omar Peralta Primary Care Provider Estela Barahona MD Primary Care Provider Unava ilable Omar Peralta Primary Care Provider [phone] Encounter Details Date Type Department Care Team Description 06/26/2020 Pt. Non Urgent Medic al Question Adult Medicine [address] [address] Estela Barahona MD Social History Tobacco Use [...] have Coronavirus / COVID-19? No / Unsure 06/14/2020 8:30 AM EDT documented as of this encounter Miscellaneous Notes * Telephone Encounter - Eugenia Motta M.A. - 06/26/2020 11:19 AM EDTFrom: Yolande Ayala To: Estela Barahona MD Sent: 06/26/2020 10:29 AM EDT Subject: Zoledronic acid Good morning , I'm just checking to see if the medication zoledronic acid has been delivered yet. [facility] specialty pharmacy told me it was being delivered on 06/22/20. Thank you, Irene documented in this encounter Plan of Treatment Not on file documented as of this encounter Visit Diagnoses Not on filedocumented in this encounter Care Teams Family Service Assistant Relationship Specialty Start Date End Date Estela Barahona MD PCP - General 09/17/10 08/20/20 Rene Llamas DO PCP - General Internal Medicine 08/21/20 1 Estela Barahona MD PCP - General Internal Medicine 02/06/21 02/07/21 [facility] PCP - General Internal Medicine 02/08/21 06/07/21 Estela Barahona MD PCP - General Internal Medicine 06/08/21 08/08/21 Omar Peralta [address] [place] [address] PCP - General Internal Medicine 08/09/21 08/21/21 Estela Barahona MD [address] [place] [address] PCP - General Uniform Designer 08/22/21 11/01/21 Omar Peralta [address] [place] [address] PCP - General Internal Medicine 11/02/21 documented as of this encounter
--- OUTSIDE RECORDS SUMMARY | 2024-11-24 08:26 | XMS_ITS | Encounter Summary ---
Author Organization [facility] Address [address] [place] [address] Care Team Providers Care Sixth Grade Teacher Name Role Phone Estela Barahona MD Primary Care Provider Unava ilable Rene Llamas DO Primary Care Provider Jen vailaEstela Burrell MD Primary Care Provider Unava ilable Rosemary Pcp Primary Care Provider UnavailEstela Gruber MD Primary Care Provider Unava ilable Omar Peralta Primary Care Provider [phone] Estela Barahona MD Primary Care Provider Unava ilable Omar Peralta Primary Care Provider Encounter Details Date Type Department Care Team Description 02/05/2016 Release of Information Medical Records [address] [place] [id number] Abstract, Provider Social History Tobacco Use Types [...] on filedocumented in this encounter Care Teams Sixth Grade Teacher Relationship Specialty Start Date End Date Estela Barahona MD PCP - General 09/17/10 08/20/20 Rene Llamas DO PCP - General Internal Medicine 08/21/20 1 Estela Barahona MD PCP - General Internal Medicine 02/06/21 02/07/21 [facility] PCP - General Internal Medicine 02/08/21 06/07/21 Estela Barahona MD PCP - General Internal Medicine 06/08/21 08/08/21 Omar Peralta [address] [place] [address] PCP - General Internal Medicine 08/09/21 08/21/21 Estela Barahona MD [address] [place] [address] PCP - General Prop And Effects Designer 08/22/21 11/01/21 Omar Peralta [address] [place] [address] PCP - General Internal Medicine 11/02/21 documented as of this encounter
--- OUTSIDE RECORDS SUMMARY | 2024-11-24 08:26 | XMS_ITS | Encounter Summary ---
Author Organization [facility] Address [address] [place] [address] Care Team Providers Care Package Dyer Name Role Phone Estela Barahona MD Primary Care Provider Unava ilable Rene Llamas DO Primary Care Provider Jen vailaEstela Burrell MD Primary Care Provider Unava ilable Rosemary Pcp Primary Care Provider UnavailEstela Gruber MD Primary Care Provider Unava ilable Omar Peralta Primary Care Provider [phone] Estela Barahona MD Primary Care Provider Unava ilable Omar Peralta Primary Care Provider [phone] Encounter Details Date Type Department Care Team Description 07/12/2016 Walk In Clinic Visit Medical Records [address] [place] [id number] Jennifer Mendenhall Social History Tobacco Use Types Packs/Day Years [...] on filedocumented in this encounter Care Teams Package Dyer Relationship Specialty Start Date End Date Estela Barahona MD PCP - General 09/17/10 08/20/20 Rene Llamas DO PCP - General Internal Medicine 08/21/20 1 Estela Barahona MD PCP - General Internal Medicine 02/06/21 02/07/21 [facility] PCP - General Internal Medicine 02/08/21 06/07/21 Estela Barahona MD PCP - General Internal Medicine 06/08/21 08/08/21 Omar Peralta [address] [place] [address] PCP - General Internal Medicine 08/09/21 08/21/21 Estela Barahona MD [address] [place] [address] PCP - General Energy Sales Broker 08/22/21 11/01/21 Omar Peralta [address] [place] [address] PCP - General Internal Medicine 11/02/21 documented as of this encounter
--- OUTSIDE RECORDS SUMMARY | 2024-11-24 08:26 | XMS_ITS | Encounter Summary ---
Author Organization [facility] Address [address] [place] [address] Care Team Providers Care Guest Relations Manager Name Role Phone Estela Barahona MD Primary Care Provider Unava ilable Rene Llamas DO Primary Care Provider Jen vailaEstela Burrell MD Primary Care Provider Unava ilable Rosemary Pcp Primary Care Provider UnavailEstela Gruber MD Primary Care Provider Unava ilable Omar Peralta Primary Care Provider [phone] Estela Barhaona MD Primary Care Provider Unava ilable Omar Peralta Primary Care Provider [phone] Encounter Details Date Type Department Care Team Description 07/03/2020 Pt. Non Urgent Medic al Question Gastroenterology - [address] [place] [address] Praful Bowling PA-C Social History Tobacco Use [...] on filedocumented in this encounter Care Teams Guest Relations Manager Relationship Specialty Start Date End Date Estela Barahona MD PCP - General 09/17/10 08/20/20 Rene Llamas DO PCP - General Internal Medicine 08/21/20 1 Estela Barahona MD PCP - General Internal Medicine 02/06/21 02/07/21 [facility] PCP - General Internal Medicine 02/08/21 06/07/21 Estela Barahona MD PCP - General Internal Medicine 06/08/21 08/08/21 Omar Peralta [address] [place] [address] PCP - General Internal Medicine 08/09/21 08/21/21 Estela Barahona MD [address] [place] [address] PCP - General Casing Flusher 08/22/21 11/01/21 [place] [address] PCP - General Internal Medicine 11/02/21 documented as of this encounter
--- OUTSIDE RECORDS SUMMARY | 2024-11-24 08:26 | XMS_ITS | Encounter Summary ---
Author Organization [facility] Address [address] [place] [address] Care Team Providers Care Design Chief Name Role Phone Estela Barahona MD Primary Care Provider Unava ilable Rene Llamas DO Primary Care Provider Jen vailaEstela Burrell MD Primary Care Provider Unava ilable Rosemary Pcp Primary Care Provider UnavailEstela Gruber MD Primary Care Provider Unava ilable Omar Peralta Primary Care Provider [phone] Estela Barahona MD Primary Care Provider Unava ilable Omar Peralta Primary Care Provider [phone] Reason for Visit * Reason Onset Date Comments Utility Tractor Operator Feedback 01/22/2017 Physiatry Encounter Details Date Type Department Care Team Description 01/22/2017 Telephone Adult Medicine [address] [address] Estela Barahona MD Cro Feedback (Physiatry) Social History Tobacco Use Types Packs/Day Years [...] encounter Miscellaneous Notes * Telephone Encounter - Angela Holman - 01/22/2017 10:49 AM EDT * Telephone Encounter - Tania Marlen - 01/22/2017 10:45 AM EDT No insurance referral required per patient's insurance. In the future please fill out proper internal smart text as this is an internal referral request noan external referral request. Please see appointment desk. Thank You, Tania Ramos Referrals Coordinator [facility]. Ext [phone] * Telephone Encounter - Angela Holman - 01/22/2017 9:31 AM EDT What insurance does the patient have today? Bc/bs Effective 12/29/08: BCBS will not retro referral requests over 90 days. If request is for this please instruct patient to call the 800# on their insurance card to appeal. Do not submit a request. Referrals cannot be processed if the insurance is not accurate. If the insurance listed above in red is NO BILLING INFORMATION FOUND FOR THIS ENCOUTNER The patients correct insurance must be obtained and registered in [facility] or their referral can not be processed. Is this a retro request? NO. If yes for what date of service do you need the retro referral? N/A Who is calling to request this referral? The pt n If the caller is not the patient, what is their name? N/A Ask the patient WHO referred them to this specialty: Not an initial visit; it is for follow up/continuation of care. Patients PCP is Dr Barahona FIRST and LAST NAME of SPECIALIST PATIENT is seeing: Manjeet Hinojosa What specialty is this? phyistry DIAGNOSIS Patient is being seen for (Not a body part or a procedure): right knee Have you seen this SPECIALIST for this PROBLEM/DX before?YES If YES, when:2014 Have you checked REVIEW or the APPT DESK to see if this referral has already been done or has visits left? YES Is this visit:Follow Up Address of Specialist: [address] [place] [address] Phone # of Specialist:[phone] Fax #: (if applicable): Does patient have an appointment scheduled?: YES Date of appointment- (including a retro-request): 03/04/2017 Is this appointment related to: Not MVA, WC or Surgery related documented in this encounter Plan of Treatment Not on file documented as of this encounter Visit Diagnoses Not on filedocumented in this encounter Care Teams Design Chief Relationship Specialty Start Date End Date Estela Barahona MD PCP - General 09/17/10 08/20/20 Rene Llamas DO PCP - General Internal Medicine 08/21/20 1 Estela Barahona MD PCP - General Internal Medicine 02/06/21 02/07/21 [facility] PCP - General Internal Medicine 02/08/21 06/07/21 Estela Barahona MD PCP - General Internal Medicine 06/08/21 08/08/21 Omar Peralta [address] [place] [address] PCP - General Internal Medicine 08/09/21 08/21/21 Estela Barahona MD [address] [place], [place] [id number] PCP - General Purchaser Automotive Parts 08/22/21 11/01/21 Omar Peralta [address] [place] [address] PCP - General Internal Medicine 11/02/21 documented as of this encounter
--- OUTSIDE RECORDS SUMMARY | 2024-11-24 08:26 | XMS_ITS | Encounter Summary ---
Author Organization [facility] Address [address] [place] [address] Care Team Providers Care Binder And Box Builder Name Role Phone Estela Barahona MD Primary Care Provider Unava ilable Rene Llamas DO Primary Care Provider Jen vailaEstela Burrell MD Primary Care Provider Unava ilable Rosemary Pcp Primary Care Provider UnavailEstela Gruber MD Primary Care Provider Unava ilable Omar Peralta Primary Care Provider [phone] Estela Barahona MD Primary Care Provider Unava ilable Omar Peralta Primary Care Provider [phone] Encounter Details Date Type Department Care Team Description 07/16/2016 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 PCP - General Internal Medicine 02/08/21 06/07/21 Estela Barahona MD PCP - General Internal Medicine 06/08/21 08/08/21 Omar Peralta [address] [place] [address] PCP - General Internal Medicine 08/09/21 08/21/21 Estela Barahona MD [address] [place] [address] PCP - General Nut Dehydrator Operator 08/22/21 11/01/21 Omar Peralta [address] [place] [address] PCP - General Internal Medicine 11/02/21 documented as of this encounter
--- NOTE | 2024-11-24 08:29 | MHC.OFFVIS ---
Intake Visit Reasons: 6 month Allergies No Known Allergies Allergy (Unverified 11/24/24 08:34) Medication List - Last Reconciled 11/24/24 by Valencia Dao CNP esomeprazole magnesium mg PO rmihxlmvmut-mrdmonxjt-hxtzgocp 100-62.5-25 mcg (Trelegy Ellipta) inhalation fremanezumab-vfrm (Ajovy Syringe) mg subcut gabapentin 100 mg PO BID ondansetron HCl 4 mg PO DAILY sumatriptan succinate 100 mg PO Q4H PRN umeclidinium-vilanterol 62.5-25 mcg/actuation inhalation HPI Comments Details: Taking Ajovy monthly. Getting aura about 2x/week, takes sumatriptan and sits in dark room, goes away after about 20 minutes. Occasionally gets mild headache afterward, about 1-2x/month. Auras may be triggered by bright lights and sun. Had an aura at work about a month ago and afterward was trying to explain packet to patient and felt like she was speaking slower than usual, resolved after few minutes and has not happened again. Occasionally gets some pain to left side of head that lasts few minutes. Wakes a few times during the night to use the bathroom, able to fall back to sleep. Stress related to work. Had about 2 auras in 03/2024 and 3 auras in 05/2024. The auras lasted about 20 minutes and headache lasted about 1 hour after taking sumatriptan.?Some dull frontal headaches. ?Some buzzing in ears, has not gotten worse. No change in hearing. Sumatriptan works better than rizatriptan. She tried three doses of Aimovig, with first dose in 02/2023 and had no change in headaches. She was having visual aura of wavy/shimmery lights without headache for about 20 minutes 2x/week. In the past, she was waking with headaches 2x/week that turned into migraine and would sometimes need to leave work. Migraines are with and without aura. Vision blurring, shiny things, may lose vision in right eye, lasting 2hr or longer. When migraines or aura occur, she has to sit in dark room until it passes. Migraines are associated with photophobia, sonophobia, nausea, and vomiting. Occasional lightheadedness. Has been hearing static-type sound on and off for few months, lasting seconds or hours and does not always occur with headache. 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 No periods since 12/2013. Hx of asthma. Tried amitriptyline, too drowsy with medication. [facility] Medical History (Updated 11/24/24 @ 08:33 by Valencia Dao, PRECIOUS) Migraine equivalent Lesion of ulnar nerve, bilateral upper limbs Asthma GERD (gastroesophageal reflux disease) Migraine Review of Systems Const Denies chills, Denies daytime sleepiness, Reports difficulty sleeping, Denies fatigue, Denies fever(s), Denies frequent falls, Reports headache(s), Denies increased appetite, Denies poor appetite, Denies snoring, Denies weakness, Denies weight gain and Denies weight loss Eyes Denies loss of vision ENT Denies vertigo, Denies dizziness, Reports headache(s) and Denies neck pain Card Denies chest pain at rest, Denies chest pain with activity, Denies syncope, Denies leg edema, Denies palpitations, Denies dyspnea and Denies dyspnea on exertion Resp Denies cough, Denies dyspnea, Denies dyspnea on exertion and Denies snoring GI Denies abdominal pain, Denies constipation, Denies heartburn, Denies diarrhea and Denies nausea Denies urinary frequency, Denies urinary incontinence and Denies urinary urgency Musc Denies abnormal gait, Denies back pain, Denies myalgias, Denies arthralgias, Denies neck pain, Denies numbness and Denies tingling Neuro Denies abnormal gait, Denies vertigo, Denies dizziness, Denies syncope, Denies frequent falls, Reports headache(s), Denies lack of coordination, Denies loss of vision, Denies memory loss, Denies numbness, Denies Other visual disturbances, Denies restless legs, Denies seizure-like activity, Denies tingling, Denies paresthesias, Denies tremor(s) and Denies weakness Psych Denies anxiety, Denies depression, Denies auditory hallucinations, Denies memory loss and Denies visual hallucinations Endo Denies fatigue and Denies palpitations Physical Exam Const Other: General Appearance:? normal, in no acute distress. Heart:? S1, S2 normal, no murmurs. Lungs:? clear anteriorly and posteriorly. Musculoskeletal:? normal. Extremities:? no edema. Psych:? alert, oriented, cognitive function intact, cooperative with exam. Neuro Other: Abnormal Neurological Findings:?none.? Mental Status: alert and oriented X 3. Normal attention, orientation, memory, and affect. Cranial Nerves: Pupils are equal, round, and reactive to light. External ocular muscles are intact. Visual rodriguez are full, no ptosis. Face is symmetrical, no facial weakness or droop. Facial sensations are normal. Tongue protrudes in midline. Palate elevates symmetrically. Shoulder shrugging is normal Motor Examination: Normal muscle tone, bulk and strength. No atrophy or fasciculations. No drift of the extended upper extremities. DTR 2+. Plantars are flexor. Sensory Exam: Normal light touch, temperature, pinprick, vibration, and joint-position sensations. Rhomberg sign is absent. Coordination: No ataxia. No titubation. Aflebp-jz-gcex, qfbl-jbwx-rthz test, and rapid alternating movements were normal. Gait Exam: Within normal limits. Cerebellar Signs: Zbxiwe-oo-gzmm and tukq-hf-xvsm is normal. No dysdiadochokinesia. Extrapyramidal System: No tremor, rigidity with normal facial expressions. No bradykinesia. No bradyphrenia. Normal arm swing and posture. No propulsion or retropulsion. Speech: Normal. No dysphasia or dysarthria. Results Reviewed Results Reviewed: CT brain 2019: No acute intracranial pathology. Labs 05/2023: CBC, CRP, Sed rate NL Assessment & Plan Assessment & Plan (1) Migraine: Code(s): G43.909 - Migraine, unspecified, not intractable, without status migrainosus Category: Medical Qualifiers: Migraine type: unspecified Status migrainosus presence: without status migrainosus Intractability: not intractable Qualified Code(s): G43.909 - Migraine, unspecified, not intractable, without status migrainosus Plan: Continue Ajovy Solution Prefilled Syringe 225mg/1.5mL 1.5mL subcutaneous monthly. Continue sumatriptan 100mg 1 tablet as needed for migraine. MRI brain ordered. (2) Migraine equivalent: Code(s): G43.109 - Migraine with aura, not intractable, without status migrainosus Category: Medical Plan Meds tried: Amitriptyline, Aimovig Unable to take topiramate due to osteoporosis Unable to take beta chalo due to asthma Orders: Orders MR head/brain wo con Today G43.909 - Migraine, unspecified, not intractable, without status migrainosus Coding Level of Care Code Est Pt Level 4 (60652) Diagnoses Migraine without status migrainosus, not intractable, unspecified migraine type G43.909 Migraine type: unspecified Status migrainosus presence: without status migrainosus Intractability: not intractable Migraine equivalent G43.109
== END 2024-11-24 08:50 | disposition home or self-care (01) ==
LOC: HO.HSM 08:07
PROVIDERS: PCP Internal Medicine; Referring Provider Internal Medicine; Visit Provider Registered Nurse
DX: G43.909 Migraine, unspecified, not intractable, without status migrainosus (principal); G43.109 Migraine with aura, not intractable, without status migrainosus
CPT/HCPCS: 99214

== ENCOUNTER 2025-02-23 08:10 | Outpatient (AMB) | payer OTHER, SELFPAY ==
--- OUTSIDE RECORDS SUMMARY | 2025-02-23 08:24 | XMS_ITS | Patient Health Record ---
Author Organization [facility] Address [address] [place] [id number] Care Team Providers Care Firestopper Technician Name Role Phone Lenny Campbell Jr Reason For Referral No Information Plan Of Treatment No Information
--- OUTSIDE RECORDS SUMMARY | 2025-02-23 08:24 | XMS_ITS | Clinical Summary ---
Author Organization [facility] [address] [place] [address] [place] [address] [place] [phone] Phone Care Team Providers Care Workers' Compensation Magistrate Name Role Phone Omar Peralta MD Primary Care Provider [phone] Allergies No known active allergies Medications ibuprofen (ADVIL,MOTRIN) 600 mg tablet Take 1 Tablet by mouth every 8 hours as needed for Pain. 4 Active acetaminophen (TYLENOL 8 HOUR) 650 mg 8 hr tablet Take 1 Tablet by mouth every 8 hours as needed for Pain. 4 Active fremanezumab-vf rm (Ajovy Syringe) 225 mg/1.5 mL syringe INJECT 1.5 ML SUBCUTANEOUS MONTHLY 30 DAY(S) 4 Active ondansetron (ZOFRAN) 4 mg tablet Take 1 tablet (4 mg total) by mouth 1 (one) time each day. 4 Active calcium-vitamin D3-vitamin K 650 mg-12.5 mcg-40 mcg tablet,chewable Take by mouth 2 times daily. Active magnesium oxide 500 mg capsule Take by mouth. Active omega-3 acid ethyl esters (LOVAZA) 1 gram capsule Take 1 Cap by mouth daily. 9 Active SUMAtriptan (IMITREX) 100 mg tablet Take 1 Tab by mouth daily as needed. May repeat dose once after 2 hours, if needed. Active lactobacillus acidoph-l.bulga r 100 million cell granules in packet Take 1 packet by mouth. Active zoledronic acid/mannitol-w ater (RECLAST IV) Infuse into a venous catheter. yearly Active aspirin 81 mg EC tablet Take 1 tablet (81 mg total) by mouth 1 (one) time each day. Active esomeprazole (NexIUM) [address] capsule TAKE 1 CAPSULE BY MOUTH EVERY MORNING BEFORE BREAKFAST ON EMPTY STOMACH, WAIT 30 MINUTES AND THEN EAT TO ACTIVATE MEDICATION. 90 capsule 1 5 Active fluticasone furoate-vilante roL (BREO ELLIPTA) 100-25 mcg/dose inhaler Inhale 1 puff by mouth 1 (one) time each day. 3 each 4 5 12/29/19 26 Active fluticasone furoate-vilante roL (Breo Ellipta) 100-25 mcg/dose inhaler Inhale 1 puff by mouth 1 (one) time each day. 1 each 12 5 12/29/19 26 Active albuterol HFA (PROAIR HFA ; PROVENTIL HFA ; VENTOLIN HFA) 90 mcg/actuation inhaler Inhale 2 puffs by mouth every 4 (four) hours if needed for wheezing. 6.7 g 11 5 01/04/20 26 Active Active Problems Problem Noted Date Diagnosed Date Mixed hyperlipidemia 06/29/2024 Pulmonary emphysema ([facility] V24, [facility] V28) 0 06/29/2024 Abdominal pain 01/09/2024 Migraine without status migrainosus, not intract able 06/06/2023 Venous insufficiency (chronic) (peripheral) 05/2022 Umbilical hernia without obstruction and without gangrene 06/21/2022 Abnormality of lung on CXR 09/29/2018 Chronic obstructive pulmonar y disease ([facility] V24, [facility] V28) 09/29/2018 Atelectasis 09/29/2018 Prediabetes 04/13/2018 Overview (01/09/2024): Nonfasting glucose 160, A1c 6.2 (04/04/2018). Prior glucoses were 110-140 Osteoporosis 02/05/2017 Lateral epicondylitis of right elbow 01/26/2016 Incomplete RBBB 01/17/2015 Overview (01/09/2024): EKG 01/02/15 and 2014 Stress incontinence 08/06/2010 Neck pain 06/05/2009 Lower back pain 05/10/2009 Thoracic back pain 05/10/2009 GERD (gastroesophageal reflux disease) 9 Encounters Date Type Department Care Team Description 12/28/2024 9:05 AM EDT - 12/28/2024 11:59 PM EDT Hospital Encounter XRAY - [place] [address] [place] [address] Chronic obstructive pulmonary disease, unspecified COPD type ([facility] [place] [place]24, [facility] [place] V28); Lower respiratory infection Discharge Disposition: Home or Self Care 12/28/2024 8:15 AM EDT Office Visit Pulmonology - [address] [place] [address] Aguilar Gao MD Chronic obstructive pulmonary disease, unspecified COPD type ([facility] [place] V24, [facility] [place] V28) (Primary Dx); Lower respiratory infection from Last 3 Months Immunizations Immunization Administration Dates Next Due Influenza Quadravalent, MDCK [...] TONSILLECTOMY PROCEDURE: HISTORICAL TONSILLECTOMY ESOPHAGOGASTRODUODENOSCOPY 2013 PROCEDURE: MN ESOPHAGOGASTRODUODENOSCOPY TRANSORAL DIAGNOSTIC; COMMENT: Normal on PPI treatment COLONOSCOPY 2013 PROCEDURE: HISTORICAL COLONOSCOPY; COMMENT: Diverticulosis SHOULDER SURGERY 06/28/14 Right PROCEDURE: MN UNLISTED PROCEDURE SHOULDER; COMMENT: Dr. Glaser; arthroscopy with removal of calcification OTHER SURGICAL HISTORY 2014 PROCEDURE: HISTORICAL CA BASAL CELL; COMMENT: nose Medical History Medical History Date Comments GERD (gastroesophageal reflux disease) DX:GERD (gastroesophageal reflux disease) Lower back pain 05/10/2009 DX:Lower back pa in Thoracic back pain 05/10/2009 DX:Thoracic b ack pain Neck pain 06/05/2009 DX:Neck pain Stress incontinence 08/06/2010 DX:Stress in continence Osteopenia 12/14/2012 DX:Osteopenia; C OMMENT: 11/2012 lumbar T -2.1, normal hip T score Former smoker 09/28/2016 DX:Former smoker Deep venous thrombosis ([facility] V24, [facility] V28) 12/15/2017 DX:Deep venous thrombosis ([facility]) [...] Record ed Within the last 3 months, ho w many times did you visit the [...] care for your loved ones. For example, early childhood assistant or elderly care for an older adult? [...] Date Recorded What is your living situation? Unrecognized valu e 06/30/2024 Interpersonal Safety Answer Date Record ed Physical Abuse Unrecognized value 05/17/2024 Verbal Abuse Unrecognized value 05/17/2024 Comments No Sex and Gender Information Value Date Recorded Sex Assigned at Female 05/17/2024 1:23 PM EST Legal Sex Female 12:56 AM EST Gender Identity Female 05/17/2024 1:23 PM EST Sexual Orientation Straight 05/17/2024 1: 23 PM EST Obstetrics History Last Filed Vital Signs Vital Sign Reading Time Taken Comments Blood Pressure 120/60 12/28/2024 8:19 AM EDT Pulse 75 12/28/2024 8:19 AM EDT Temperature 37 C (98.6 F) 12/28/2024 8:19 AM EDT Respiratory Rate 16 12/28/2024 8:19 AM EDT Oxygen Saturation 98% 12/28/2024 8:19 AM EDT Inhaled Oxygen Concentration - - Weight 66.2 kg (146 lb) 12/28/2024 8:19 AM EDT Height 154.3 cm (5' 0.75 ) 12/28/2024 8:19 AM ED T Body Mass Index 27.81 12/28/2024 8:19 AM EDT Plan of Treatment Upcoming Encounters Date Type Department Care Team (Late st Contact Info) Description 03/04/2025 8:30 AM EST Office Visit Pulmonology - [place] [address] [facility] [address] [place] [phone] Aguilar Gao MD [address] [place] [phone] 03/11/2025 8:30 AM EST Office Visit Orthopedic Surgery - [place] [address] [facility] [address] [place] [phone] Lisette Moeller MD 175 [facility] [address] [place] [address] 03/30/2025 2:30 PM EST Office Visit Orthopedic Surgery - [place] [address] [phone] Colin Maria, DPM [address] [phone] 04/22/2025 8:00 AM EST Office Visit Adult Medicine [address] [phone] Omar Peralta MD [address] [place] [address] Health Maintenance Due Date Last Done Comments RSV Immunization Adult Patients (1 - Risk 50-74 years 1-dose series) 01/03/2012 COVID-19 Vaccine ( season) 2024 03/08/2022, 01/26/2021, 05/16/2020, Additional history exists Influenza [...] Procedure Name Priority Date/Time Associated Diagnosis Comments XR CHEST 2 VIEWS Routine 12/28/2024 9:12 AM EDT Chronic obstructive pulmonary disease, unspecified COPD type (CMS/HCC V24, CMS/HCC V28) Lower respiratory infection BD BONE DENSITY DXA AXIAL SKELETON Routine 07/23/2024 11:57 AM EDT Screening for osteoporosis COLONOSCOPY Routine 05/17/2024 2:18 PM EST Colon cancer screening LIPID PANEL Routine 09/19/2023 HM HEPATITIS C SCREENING Routine 12/14/2015 from Last 3 Months or Most Recently Relevant to Health Maintenance Results * XR Chest 2 Views (12/28/2024 9:12 AM EDT) Anatomical Region Laterality Modality Body Radiographic Shana ging 12/28/2024 9:58 AM EDT Narrative 12/28/2024 9:58 AM EDT Chest, 2 views. History dyspnea. Comparison with previous examinations, latest from 09/05/2023. Lungs are hyperinflated. There is no pneumothorax, pleural effusions or focal consolidations. Cardiomediastinal silhouette is unremarkable. CONCLUSIONS: Hyperinflation. Otherwise unremarkable examination. No significant interval change since previous examination. -------- FINAL REPORT -------- Dictated By: Keily Marvin Dictated Date: 12/28/2024 09:58 ET Assigned Physician: Keily Marvin Reviewed and Electronically Signed By: Keily Marvin Signed Date: 12/28/2024 09:58 ET Workstation ID: [id number] Transcribed By: Self Edit Transcribed Date: 12/28/2024 09:58 ET Procedure Note Keily Marvin MD - 12/28/2024 Chest, 2 views. History dyspnea. Comparison with previous examinations, latest from 09/05/2023. Lungs arehyperinflated. There is no pneumothorax, pleural effusions or focalconsolidations. Cardiomediastinal silhouette is unremarkable. CONCLUSIONS: Hyperinflation. Otherwise unremarkable examination. Nosignificant interval change since previous examination. -------- FINAL REPORT -------- Dictated By: Keily Marvin Dictated Date: 12/28/2024 09:58 ET Assigned Physician: Keily Marvin Reviewed and Electronically Signed By: Keily Marvin Signed Date: 12/28/2024 09:58 ET Workstation ID: [id number] Transcribed By: Self Edit Transcribed Date: 12/28/2024 09:58 ET us Aguilar Gao MD IMG XR PROCEDURES Final Result * BD Bone Density DXA Axial Skeleton [...] Signed Date: 07/26/2024 09:10 ET Workstation ID: [id number] Transcribed By: Self Edit Transcribed Date: 07/26/2024 09:08 ET Narrative 07/26/2024 9:10 AM EDT Clinical history: post-menopausal osteoporosis prevention Scans of the lumbar spine and hips were performed on a [employer] fan beam bone densitometer. Bone mineral density [...] spine and hips were performed on a Punch Through Designfan beam bone densitometer. Bone mineral density measurements [...] Signed Date: 07/26/2024 09:10 ET Workstation ID: [id number] Transcribed By: Self Edit Transcribed Date: 07/26/2024 09:08 ET Bessie Tabatha Porfirio Alcantar PA IMG DXA PROCEDURES Final Result * COLONOSCOPY Anesthesia - MAC; [facility] ENDOSCOPY (05/17/2024 2:18 PM EST) [...] pathology results. Narrative 05/17/2024 2:18 PM EST [facility] GI Patient Name: Yolande Ayala Procedure Date: 05/17/2024 1:53 PM Date of : 1960 Age: 64 Gender: Female Note Status: Finalized Attending MD: Lien Rodriguez DO, [id number] Procedure Date No Time: 05/17/2024 Procedure: Colonoscopy [...] the physician, the nurse, the anesthesiologist, the file system installer and the critical power install technician in the pre-procedure area in the [...] retroflexion views. Procedure Code(s): --- Professional --- 42662, Colonoscopy, flexible; with removal of tumor(s), polyp(s), or other lesion(s) by snare technique Diagnosis Code(s): --- Professional --- Z12.11, Encounter for screening for malignant neoplasm of colon K64.9, Unspecified hemorrhoids D12.5, Benign neoplasm of sigmoid colon CPT copyright 2020 [employer]. All rights reserved. The codes documented in this report are preliminary and upon head of ethics and compliance review may be revised to meet current compliance requirements. LIEN Rodriguez DO 05/17/2024 2:18:03 PM This report has been signed electronically.Lien Rodriguez DO Number of Addenda: 0 Note Initiated On: 05/17/2024 1:53 PM Scope Withdrawal Time: 0 hours 6 minutes 48 seconds Scope In: 2:03:03 PM Scope Out: 2:15:44 PM Endoscopy Department at [facility] - [address] [place] [phone] Procedure Note Lien Rodriguez DO - 05/17/2024 [facility] GI Patient Name: Yolande Ayala Procedure Date: 05/17/2024 1:53 PM Date of : 1960 Age: 64 Gender: Female Note Status: Finalized Attending MD: Lien Rodriguez DO, [id number] Procedure Date No Time: 05/17/2024 Procedure: Colonoscopy [...] the physician, the nurse, the anesthesiologist, the file system installer and thetechnician in the pre-procedure area in [...] retroflexion views. Procedure Code(s): --- Professional --- 71624, Colonoscopy, flexible; with removal of tumor(s), polyp(s), or other lesion(s) by snare technique Diagnosis Code(s): --- Professional --- Z12.11, Encounter for screening for malignantneoplasm of colon K64.9, Unspecified hemorrhoids D12.5, Benign neoplasm of sigmoid colon CPT copyright 2020 [employer]. All rights reserved. The codes documented in this report are preliminary and upon head of ethics and compliance reviewmay be revised to meet current compliance requirements. LIEN Rodriguez DO 05/17/2024 2:18:03 PM This report has been signed electronically.Lien Rodriguez DO Number of Addenda: 0 Note Initiated On: 05/17/2024 1:53 PM Scope Withdrawal Time: 0 hours 6 minutes 48 seconds Scope In: 2:03:03 PM Scope Out: 2:15:44 PM Endoscopy Department at [facility] - [address] [place] [phone] IMPRESSION: - Hemorrhoids found on perianal exam. - One 5 mm polyp in the sigmoid colon, removed witha cold snare. Resected and retrieved. - The examination was otherwise normal on directand retroflexion views. Recommendation: - - Discharge patient to home. - High fiber diet. - Continue present medications. - Await pathology results. - Repeat colonoscopy for surveillance based on pathology results. us Lien Rodriguez DO GI~PROCEDURE ORDERABLES Final Re sult * (ABNORMAL) Lipid panel (09/19/2023) LDL/HDL Ratio 4 0 - 4 Triglycerides 143 0 - 150 mg/dL Cholesterol 220(A) 0 - 200 mg/dL HDL 51 >=40 mg/dL LDL Cholesterol 141(A) 0 - 100 mg/dL Blood Venous blood specimen / Unknown Historical Provider LAB BLOOD ORDERABLES Jessica l Result * Hepatitis C Screening (12/14/2015) Hepatitis C Screening abstracted Historical Provider HEALTH MAINTENANCE Final Result from Last 3 Months or Most Recently Relevant to Health Maintenance Insurance [facility] Care Teams Workers' Compensation Magistrate Relationship Specialty Start Date End Date Omar Peralta MD [address] [place] [address] [place] PCP - General Internal Medicine 11/02/21
--- OUTSIDE RECORDS SUMMARY | 2025-02-23 08:24 | XMS_ITS | Encounter Summary ---
Author Organization [facility] Address [address] [place] [phone] Phone Care Team Providers Care Project Systems Engineer Name Role Phone Omar Peralta MD Primary Care Provider Reason for Referral * MRI/CAT Scan - Closed Specialty Diagnoses / Procedures Referred By Franki agustin Referred To Contact Radiology Diagnoses Migraine without status migrainosus, not intractable, unspecified migraine type Procedures MRI Brain Valencia Dao NP [address] [place] [address] [place] [address] Phone: tel: fax: Referral ID Status Reason Start Date Expiration Date Visits Re quested Visits Authorized [id number] Closed 12/24/2024 12/24/2025 1 1 Encounter Details Date Type Department Care Team (Late st Contact Info) Description 12/24/2024 Transcribe Orders Virtual Department [address] [place] [address] Valencia Dao NP [address] [place] [address] Dr Luan [place] [phone] Migraine without status migrainosus, not intractable, unspecified migraine type (Primary Dx) Social History Tobacco Use [...] 8:30 AM EDT Office Visit [facility] [address] [place] [address] Nick Valdez, [address] [place] [phone] [email or web address] documented as of this encounter Results * MRI BRAIN WITHOUT CONTRAST (01/19/2025 7:32 AM EDT) Anatomical Region Laterality Modality Head Magnetic Resonan ce 01/20/2025 9:26 AM EDT Impressions 01/20/2025 9:30 AM EDT 1. No acute intracranial infarction, hemorrhage or mass-effect. 2. Periventricular and additional scattered areas of T2 hyperintensities in the white matter, nonspecific, likely chronic small vessel disease. Narrative 01/20/2025 9:30 AM EDT MRI BRAIN WITHOUT CONTRAST Referring clinician's provided indication for this examination in [facility]: Outside Radiology Order; migraines TECHNIQUE: MRI BRAIN WITHOUT CONTRAST Multi-sequence, multi-planar MRI of the brain was performed without intravenous contrast. COMPARISON: None FINDINGS: Brain Parenchyma: No evidence of acute infarct, mass or hemorrhage. There are scattered foci of T2 hyperintensity in the white matter, likely a manifestation of chronic small vessel disease. Ventricular System and Extra-Axial Spaces: There is no evidence of midline shift or hydrocephalus. Extracranial Structures: Expected arterial flow signal is observed at the skull base. Procedure Note Scooter Nguyen MD, PhD - 01/20/2025 MRI BRAIN WITHOUT CONTRAST Referring clinician's provided indication for this examination in [facility]:Outside Radiology Order; migraines TECHNIQUE: MRI BRAIN WITHOUT CONTRAST Multi-sequence, multi-planar MRI of the brain was performed withoutintravenous contrast. COMPARISON: None FINDINGS: Brain Parenchyma: No evidence of acute infarct, mass or hemorrhage. Thereare scattered foci of T2 hyperintensity in the white matter, likely amanifestation of chronic small vessel disease. Ventricular System and Extra-Axial Spaces: There is no evidence of midlineshift or hydrocephalus. Extracranial Structures: Expected arterial flow signal is observed at theskull base. IMPRESSION: 1. No acute intracranial infarction, hemorrhage or mass-effect. 2. Periventricular and additional scattered areas of T2 hyperintensitiesin the white matter, nonspecific, likely chronic small vessel disease. Valencia Dao PAINT MIXER MACHINE IMG MR HEAD/NECK Final Re sult documented in this encounter Visit Diagnoses Diagnosis Migraine without status migrainosus, not intractable, unspecified migraine type- Primary Migraine without status migrainosus, not intractable, unspecified migraine type documented in this encounter Care Teams Project Systems Engineer Relationship Specialty Start Date End Date Omar Peralta MD [address] [place] [id number] PCP - [facility] Hospitalist 01/28/22 documented as of this encounter Additional Source Comments The information contained in this document represents components of the legal health record. It is not the complete legal health record.[facility]
--- OUTSIDE RECORDS SUMMARY | 2025-02-23 08:24 | XMS_ITS | Encounter Summary ---
Author Organization [facility] Address [address] [place] [address] Phone Care Team Providers Care Primary Clinician Name Role Phone Omar Peralta MD Primary Care Provider Encounter Details Date Type Department Care Team (Late st Contact Info) Description 12/24/2024 Procedure Pass [facility], [address] [address] Social History Tobacco Use Types Packs/Day Years [...] a working camera? Not on file Comments No Sex and Gender Information Value [...] AM EDT Office Visit [facility] [address] [place] [address] Nick Valdez DO [address] [place] [address] [email or web address] documented as of this encounter Visit Diagnoses Not on filedocumented in this encounter Care Teams Primary Clinician Relationship Specialty Start Date End Date Omar Peralta MD [address] [place] [phone] PCP - General Hospitalist 01/28/22 documented as of this encounter Additional Source Comments The information contained in this document represents components of the legal health record. It is not the complete legal health record.[facility]
--- OUTSIDE RECORDS SUMMARY | 2025-02-23 08:24 | XMS_ITS | Clinical Summary ---
Author Organization [facility] Address [address] [place] [phone] Phone Care Team Providers Care Box Tender Name Role Phone Omar Peralta MD Primary [...] scan to be done on 06/02/2023 at [facility]. She will follow in 1 year she [...] Encounters Date Type Department Care Team Description 01/19/2025 6:45 AM EDT - 01/19/2025 11:59 PM EDT Hospital Encounter [address] [address] Valencia Dao NP Discharge Disposition: Home or Self Care 12/24/2024 Procedure Pass [address] [address] 12/24/2024 Transcribe Orders Virtual Department [address] [place] [id number] Valencia Dao, SYEDA Migraine without status migrainosus, not intractable, unspecified migraine type (Primary Dx) from Last 3 Months Immunizations Immunization Administration Dates Next Due COVID-19 (Pre-01/20) Moderna Vaccine, mRNA, PF 05/16/2020,04/18/2020 INFLUENZA, SPLIT VIRUS, TRIVALENT PF 01/11/2025 Influenza Quadrivalent Prese rvative Free IM 12/31/2022,01/03/2022,12/11/2019,2019,12/11/2019 [...] EDT Inhaled Oxygen Concentration - - Weight 66.7 kg (147 lb) 01/13/2025 5:08 PM EDT Height 152.4 cm (5') 01/13/2025 5:08 PM EDT 04/01 Body Mass Index 28.71 01/13/2025 5:08 PM EDT Plan of Treatment Upcoming Encounters Date Type Department Care Team (Late st Contact Info) Description 08/03/2025 8:30 AM EDT Office Visit [facility] [address] [place] [phone] Nick Valdez DO [address] [place] [phone] [email or web address] Health Maintenance Due Date Last Done Comments DEPRESSION SCREENING 1974 SMOKING Hx and SMOKELESS TOBACCO SCREENING 1975 HIV ONE-TIME SCREENING (18-65 YEARS) 01/03/1980 COLOGUARD 2007 COLONOSCOPY 2007 COLORECTAL CANCER SCREENING 2007 FIT TEST 2007 FOBT 2007 SIGMOIDOSCOPY 2007 VIRTUAL COLONOSCOPY 2007 RSV VACCINE (1 - Risk 50-74 years 1-dose series) 01/03/2012 PAP SMEAR 10/10/2024 10/10/2021, 12/23/2015 COVID-19 VACCINE ( season) 2024 03/08/2022, 01/26/2021, 05/16/2020, Additional history exists MAMMOGRAM 06/25/2026 06/25/2024, 05/30, 06/13/2023, Additional history exists SCREENING FOR DIABETES 10/21/2027 10/20/2024, 2024 Adult Td,Tdap Booster 09/08/2028 09/08/2018, 008 LIPID PANEL 10/20/2029 10/20/2024, 09/29, 09/19/2023, Additional history exists ZOSTER VACCINES Completed 07/17/2020, 05/30, 03/20/2020 HEPATITIS C SCREENING Completed 07/06/2021 PNEUMOCOCCAL VACCINES (50+ years) Completed 10/15/2024, 12/11/2019, 09/29/2018 INFLUENZA VACCINE Completed 01/11/2025, , 12/12/2023, Additional history exists HEPATITIS A VACCINES Aged Out No long [...] Procedure Name Priority Date/Time Associated Diagnosis Comments MRI BRAIN WITHOUT CONTRAST Routine 01/19/2025 7:32 AM EDT Migraine without status migrainosus, not intractable, unspecified migraine type LIPID PANEL Routine 10/20/2024 8:06 AM EDT Physical exam Chronic obstructive pulmonary disease, unspecified COPD type Age related osteoporosis, unspecified pathological fracture presence Mixed hyperlipidemia Pre-diabetes Migraine without aura and without status migrainosus, not intractable PAP TEST Routine 10/10/2021 12:00 AM EDT HEPATITIS C ANTIBODY, QUALITATIVE Routine 07/06/2021 8:29 AM EDT Need for hepatitis C screening test HM MAMMOGRAPHY Routine 05/24/2021 from Last 3 Months or Most Recently Relevant to Health Maintenance Results * MRI BRAIN WITHOUT CONTRAST (01/19/2025 [...] clinician's provided indication for this examination in [facility]: Outside Radiology Order; migraines TECHNIQUE: [...] clinician's provided indication for this examination in [facility]:Outside Radiology Order; migraines TECHNIQUE: MRI [...] likely chronic small vessel disease. Valencia Dao WARD MAID IMG MR HEAD/NECK Final Re sult * (ABNORMAL) Lipid panel (10/20/2024 8:06 AM EDT) HDL 52 mg/dL [facility] Comment: Interpretation <40 mg/dL: Low HDL cholesterol (major risk factor for CHD) Greater than or equal to 60 mg/dL: High HDL cholesterol ( negative risk factor for CHD) HDL - cholesterol is affected by a number of factors, e.g. smoking, excerise, hormones, sex and age. CHOLESTEROL 217 0 - 240 mg/dL [facility] TRIGLYCERIDES 103 30 - 160 mg/dL [facility] LDL 144(H) 50 - 129 mg/dL [facility] Comment: LDL levels in terms of risk for coronary heart disease: <100 mg/dL: Optimal 100-129 mg/dL: Near or above optimal 130-159 mg/dL: Borderline high 160-189 mg/dL: High >190 mg/dL: Very High CARDIAC RISK RATIO 4.2 3.3 - 4.4 [facility] Blood 10/20/2024 8:06 AM EDT 10/20/2024 8:12 AM EDT Omar Peralta MD LAB BLOOD BKR ORDERABLE S Final Result [address] [address] * Pap Smear (10/10/2021 12:00 AM EDT) 10/10/2021 10/11/2021 10: 27 AM EDT Narrative SEE NARRATIVE - 10/15/2021 1:18 PM EDT [address] [address] Applications Instructor: Tania Ellington MD CONTROL CLERK REPAIRS Cytology Report FINAL DIAGNOSIS A. PAP SMEAR [...] 52, 56, 58, 59, 66, 68) by [employer] Onclarity HR-HPV analysis. Clinical correlation is advised. This HPV test was performed at [facility], [address] [place] [address]. This test has been FDA approved for [employer]Path cervical cytology specimens. The accuracy and precision of this test for all other specimen sources has been verified in the Cytopathology Laboratory of the [facility] and has not been cleared or approved by the U.S. Food and Drug Administration. Clinical correlation is advised. CLINICAL HISTORY Date of Last Menstrual Period: Not Provided Menstrual History: Post Menopausal Other Clinical Conditions: Screening Pap SPECIMEN SOURCE A: PAP SMEAR (SUREPATH) CE Patient Name: YOLANDE AYALA : 1960 (Age: 61) Sex: F Institution: [facility] Location: [facility] Date of Collection: 10/10/2021 Date of Reported: 10/15/2021 13:02 Results to: Meg Bernardo MSN us Meg Bernardo CNDenys CYTOLOGY ORDERABLES Ed ited Result - Final Performing Organization Address City/[facility] de Phone Number SEE NARRATIVE * Hepatitis C antibody, qualitative (07/06/2021 8:29 AM EDT) HCV NON-REACTIV E NON-REACTI VE [facility] Blood 07/06/2021 8:29 AM EDT 07/06/2021 8:31 AM EDT us Estela Barahona MD LAB BLOOD BKR ORDERAB LES Final Result Performing Organization Address City/[facility] Co de Phone Number [facility] [address] [place] [address] * HM MAMMOGRAPHY FOR RESULT ENTRY ONLY (05/24/2021) us Historical Provider HEALTH MAINTENANCE Final Result from Last 3 Months or Most Recently Relevant to Health Maintenance Insurance [employer] [place] [address] [place] [address] [place] [address] [place] [address] [place] [address] [employer] FAM[employer] [place] [id number] [facility] Care Teams Box Tender Relationship Specialty Start Date End Date Omar Peralta MD [address] [place] [phone] PCP - General Hospitalist 01/28/22 Additional Source Comments The information contained in this document represents components of the legal health record. It is not the complete legal health record.[facility]
--- OUTSIDE RECORDS SUMMARY | 2025-02-23 08:24 | XMS_ITS | Encounter Summary ---
Author Organization [facility] Address [address] [place] [phone] Phone Care Team Providers Care Oyster Grader Name Role Phone Omar Peralta MD Primary Care Provider Reason for Referral * Consultation (Elective) - Closed Specialty Diagnoses / Procedures Referred By Contvinnie t Referred To Contact Endocrinology Omar Peralta MD [facility] [place] [address] Phone: tel: fax: [address] [address] Phone: tel: Referral ID Status Reason Start Date Expiration Date Visits Re quested Visits Authorized [id number] Closed 05/29/2022 05/30/2023 1 1 Encounter Details Date Type Department Care Team (Late st Contact Info) Description 05/29/2022 Transcribe Orders [facility] [address] [place] [phone] Nick Valdez DO [address] [place] [address] [email or web address] Social History Tobacco Use Types Packs/Day Years [...] Upcoming Encounters Date Type Department Care Team ([facility] st Contact Info) Description 08/03/2025 8:30 AM EDT Office Visit [facility] [address] [place] [address] Nick Valdez DO [address] [place] [address] Scheduled Referrals Name Type Priority Associated Diagnoses Order Schedule Ambulatory referral to [facility] Endocr[facility]ology Outpatient Referral Routine Ordered: 05/29/2022 documented as of this encounter Visit Diagnoses Not on filedocumented in this encounter Care Teams Oyster Grader Relationship Specialty Start Date End Date Omar Peralta MD [address] [place] [phone] PCP - General Hospitalist 01/28/22 documented as of this encounter Additional Source Comments The information contained in this document represents components of the legal health record. It is not the complete legal health record.[facility]
--- NOTE | 2025-02-23 08:31 | A.OFFVIS_ITS ---
Intake Visit Reasons: 3M TAMEZ Allergies No Known Allergies Allergy (Unverified 02/23/25 08:35) Medication List - Last Reconciled 02/23/25 by Valencia Dao CNP esomeprazole magnesium mg PO klmjvaoheza-obtdglotd-dfsxjevi 100-62.5-25 mcg (Trelegy Ellipta) inhalation fremanezumab-vfrm (Ajovy) 225 mg (1.5 mL) subcut QMONTH 30 days gabapentin 100 mg PO BID ondansetron 4 mg PO DAILY PRN 30 days sumatriptan succinate 100 mg PO Q4H PRN umeclidinium-vilanterol 62.5-25 mcg/actuation inhalation HPI Comments Details: She was doing okay. In 10/2024, she had 2 migraines with aura and 1 aura. In 11/2024, she had 1 migraine with aura. In 12/2024, she had 3 migraines with aura, 2 migraines without aura, and 2 auras. So far, she has had 2 migraines with aura, including one with dizziness and felt like the room was spinning, and 1 aura this month. No specific triggers identified, and no specific triggers for increase in 12/2024. Migraines were not as severe, and she did not need to go to bed when they happened anymore. She was more bothered by auras which lasted about 20 minutes. She would take sumatriptan and sit in a dark room until it went away, but sometimes it was hard to find coverage at work when it happened. Work was busy, some work related stress. She woke up few times during the night to use the bathroom. Her sister and son have migraines. Taking Ajovy monthly. Gets aura about 2x/week, takes sumatriptan and sits in dark room, goes away after about 20 minutes. Occasionally gets mild headache afterward, about 1-2x/month. Auras may be triggered by bright lights and sun. Had an aura at work in 09/2024 and afterward was trying to explain packet to patient and felt like she was speaking slower than usual, resolved after few minutes and has not happened again. Occasionally gets some pain to left side of head that lasts few minutes. Had about 2 auras in 03/2024 and 3 auras in 05/2024. The auras lasted about 20 minutes and headache lasted about 1 hour after taking sumatriptan.?Some dull frontal headaches. ?Some buzzing in ears, has not gotten worse. No change in hearing. Sumatriptan works better than rizatriptan. She tried three doses of Aimovig, with first dose in 02/2023 and had no change in headaches. She was having visual aura of wavy/shimmery lights without headache for about 20 minutes 2x/week. In the past, she was waking with headaches 2x/week that turned into migraine and would sometimes need to leave work. Migraines are with and without aura. Vision blurring, shiny things, may lose vision in right eye, lasting 2hr or longer. When migraines or aura occur, she has to sit in dark room until it passes. Migraines are associated with photophobia, sonophobia, nausea, and vomiting. Occasional lightheadedness. Has been hearing static-type sound on and off for few months, lasting seconds or hours and does not always occur with headache. 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 No periods since 12/2013. Hx of asthma. Tried amitriptyline, too drowsy with medication. [facility] Medical History (Updated 11/24/24 @ 08:33 by Valencia Dao CNP) Migraine equivalent Lesion of ulnar nerve, bilateral upper limbs Asthma GERD (gastroesophageal reflux disease) Migraine Family History (Updated 02/23/25 @ 15:50 by Valencia Dao CNP) Son Headache Review of Systems Const Denies chills, Denies daytime sleepiness, Reports difficulty sleeping, Denies fatigue, Denies fever(s), Denies frequent falls, Reports headache(s), Denies increased appetite, Denies poor appetite, Denies snoring, Denies weakness, Denies weight gain and Denies weight loss Eyes Denies loss of vision ENT Denies vertigo, Denies dizziness, Reports headache(s) and Denies neck pain Card Denies chest pain at rest, Denies chest pain with activity, Denies syncope, Denies leg edema, Denies palpitations, Denies dyspnea and Denies dyspnea on exertion Resp Denies cough, Denies dyspnea, Denies dyspnea on exertion and Denies snoring GI Denies abdominal pain, Denies constipation, Denies heartburn, Denies diarrhea and Denies nausea Denies urinary frequency, Denies urinary incontinence and Denies urinary urgency Musc Denies abnormal gait, Denies back pain, Denies myalgias, Denies arthralgias, Denies neck pain, Denies numbness and Denies tingling Neuro Denies abnormal gait, Denies vertigo, Denies dizziness, Denies syncope, Denies frequent falls, Reports headache(s), Denies lack of coordination, Denies loss of vision, Denies memory loss, Denies numbness, Denies Other visual disturbances, Denies restless legs, Denies seizure-like activity, Denies tingling, Denies paresthesias, Denies tremor(s) and Denies weakness Psych Denies anxiety, Denies depression, Denies auditory hallucinations, Denies memory loss and Denies visual hallucinations Endo Denies fatigue and Denies palpitations Physical Exam Const Other: General Appearance:? normal, in no acute distress. Heart:? S1, S2 normal, no murmurs. Lungs:? clear anteriorly and posteriorly. Musculoskeletal:? normal. Extremities:? no edema. Psych:? alert, oriented, cognitive function intact, cooperative with exam. Neuro Other: Abnormal Neurological Findings:?none.? Mental Status: alert and oriented X 3. Normal attention, orientation, memory, and affect. Cranial Nerves: Pupils are equal, round, and reactive to light. External ocular muscles are intact. Visual rodriguez are full, no ptosis. Face is symmetrical, no facial weakness or droop. Facial sensations are normal. Tongue protrudes in midline. Palate elevates symmetrically. Shoulder shrugging is normal Motor Examination: Normal muscle tone, bulk and strength. No atrophy or fasciculations. No drift of the extended upper extremities. DTR 2+. Plantars are flexor. Sensory Exam: Normal light touch, temperature, pinprick, vibration, and joint- position sensations. Rhomberg sign is absent. Coordination: No ataxia. No titubation. Gait Exam: Within normal limits. Cerebellar Signs: Cseivv-em-tvcm is okay. Extrapyramidal System: No tremor, rigidity with normal facial expressions. No bradykinesia. No bradyphrenia. Normal arm swing and posture. No propulsion or retropulsion. Speech: Normal. Results Reviewed Results Reviewed: MRI brain at [facility] 01/20/2025: No acute intracranial infarction, hemorrhage, or mass effect. Periventricular and additional scattered areas of T2 hyperintensities in the white matter, nonspecific, likely chronic small vessel disease (reported). CT brain 2019: No acute intracranial pathology. Labs 05/2023: CBC, CRP, Sed rate NL Assessment & Plan Assessment & Plan (1) Migraine: Code(s): G43.909 - Migraine, unspecified, not intractable, without status migrainosus Category: Medical Qualifiers: Intractability: not intractable Migraine type: unspecified Status migrainosus presence: without status migrainosus Qualified Code(s): G43.909 - Migraine, unspecified, not intractable, without status migrainosus Plan: MRI results reviewed, CD not available for review at this time. Continue Ajovy Solution Prefilled Syringe 225mg/1.5mL 1.5mL subcutaneous monthly. Continue sumatriptan 100mg 1 tablet as needed for migraine. Continue ondansetron 4mg 1 tablet as needed for nausea/vomiting #10 for 30 days. Follow up in 6 months or sooner as needed. (2) Migraine equivalent: Code(s): G43.109 - Migraine with aura, not intractable, without status migrainosus Category: Medical Plan Meds tried: Amitriptyline, Aimovig Unable to take topiramate due to osteoporosis Unable to take beta chalo due to asthma Medications: New sumatriptan succinate take 1 tab at onset of headache; if no relief, may repeat 1 tab after at least 2 hrs; max = 2 tabs/24 hrs PO 10 tabs 5RF 30 days Refilled fremanezumab-vfrm (Ajovy) 225 mg (1.5 mL) subcut QMONTH 1 ea 5RF 30 days ondansetron 4 mg PO DAILY PRN 10 tabs 5RF nausea and vomiting 30 days Discontinued sumatriptan succinate Discontinued Reason: Order 100 mg PO Q4H PRN Coding Level of Care Code Est Pt Level 4 (69639) Diagnoses Migraine without status migrainosus, not intractable, unspecified migraine type G43.909 Intractability: not intractable Migraine type: unspecified Status migrainosus presence: without status migrainosus Migraine equivalent G43.109
== END 2025-02-23 08:50 | disposition home or self-care (01) ==
LOC: HO.HSM 08:11
PROVIDERS: PCP Internal Medicine; Visit Provider Registered Nurse
DX: G43.909 Migraine, unspecified, not intractable, without status migrainosus (principal); G43.109 Migraine with aura, not intractable, without status migrainosus
CPT/HCPCS: 99214